=== PATIENT | male | born 1980 | race Caucasian/White ===

== ENCOUNTER 2025-02-15 16:15 | Inpatient (IN) | payer MEDICAID, SELFPAY ==
[2025-02-15] VITALS (7 sets, daily range): BP systolic 153–206; BP diastolic 71–93; PULSE 74–95; RESP 15–26; TEMP 37.1–37.6; O2SAT 93–100; BMI 25.6; BMI 24.0
[2025-02-15 16:49] LABS: Hematocrit 48.0 % (40-54); Hemoglobin 16.7 g/dL (13.0-16.5); Immature Granulocytes Count 0.140 X10^3/uL (0.0-0.0); Mean Corp Hgb Conc 34.8 g/dL (32-36); Mean Corpuscular Volume 92.5 fL (80-94); Mean Platelet Vol. 11.1 fl (6.2-12.0); NRBC Flagged by Analyzer 0 % (0-5); Platelet Count 348 K/mm3 (150-450); RBC Distribution Width CV 13.1 % (11.6-14.6); RBC Distribution Width SD 44.0 fl (35.1-43.9); Red Blood Count 5.19 M/mm3 (4.6-6.2); White Blood Count 18.9 K/mm3 (4.4-11.0)
[2025-02-15 17:10] LABS: Alcohol, Blood (Medical)-Serum < 10.1 mg/dL (<=10.0)
[2025-02-15 17:13] LABS: AST(SGOT) 21 U/L (<=37); Alanine Aminotransfer ALT/SGPT 20 U/L (<=46); Albumin, Serum 4.6 g/dL (3.5-5.0); Alkaline Phosphatase 78 U/L (40-129); Anion Gap 17 (5-15); BUN 18 mg/dL (4-19); BUN/Creat Ratio 18.7 RATIO (10-20); Calcium,Total 9.8 mg/dL (7.6-11.0); Carbon Dioxide 29.6 mmol/L (21.0-32.0); Chloride 97 mmol/L (98-108); Estimated Creatinine Clearance 101.39 ml/min (50-250); Globulin 3.2 g/dL (2.2-4.2); Glucose 188 mg/dL (70-99); Potassium 3.2 mmol/L (3.3-5.1)
--- NOTE | 2025-02-15 17:28 | EX.ED.SAOD ---
HPI History of Present Illness Chief Complaint: Substance Abuse Detail of Chief Complaint: Patient presents from [facility] because of withdrawal from fentanyl. Informant: patient Onset/Context/Timing Onset: Today Context: Sudden Onset Timing: Continuous Quality: Withdrawal Location: Not applicable Current Severity: Moderate Maximum Severity: Moderate Worsened by: Has not used fentanyl since yesterday since he was incarcerated for OV I Relieved by: Not applicable Associated Symptoms Associated Symptoms: Positive for tremor and palpatations; Negative for vomiting*, diarrhea*, fever*, rash*, seizure, change in mental status, trauma, sex for drugs*, no, suicidal ideation, homicidal ideation or *HIV Risk Factors:Consider testing if last test > 6 months Narrative Narrative: Patient is a 44-year-old male. He was incarcerated yesterday for O . He needs to spend 6 days in [facility]. He started using 1.5 months ago. He states he got nervous because he had to go to [facility]. He had been free of drugs for 1 year. He has never gone through a detox program per patient. He denies fever, chills night sweats. Eyes headache, visual, ocular auditory symptoms. No trouble speech or swallowing. He does complain of palpitation otherwise cardiac negative. He denies respiratory symptoms. He does endorse nausea otherwise no GI symptoms. He states he did use IV drugs. Prior similar symptoms: Yes Recent Illness/Hospitalization: No PFSH PFSH Medical History Drug use Allergy/AdvReac Type Severity Reaction Status Date / Time No Known Allergies Allergy Verified 02/15/25 16:17 Social History current occupational status: unemployed Smoking Status: Current every day smoker tobacco type: cigarettes ROS ROS ED Constitutional Constitutional ED: Reports sweats; Denies chills, fever(s), subjective or weight loss Eyes Eyes: Denies blurry vision or change in vision ENT ENT ED: Denies ear pain or rhinorrhea Cardiovascular Cardiovascular: Denies chest pain, orthopnea, palpitations or racing heartbeat Respiratory/Chest Respiratory/Chest: Denies cough, dyspnea, dyspnea on exertion or orthopnea Gastrointestinal Gastrointestinal: Reports abdominal pain and nausea Genitourinary Genitourinary ED: Denies dysuria or urinary frequency Musculoskeletal Musculoskeletal: Denies arthralgias or myalgias Integumentary Denies rash Neurologic Neurologic: Denies headache(s) or paresthesias Psychiatric Psychiatric: Denies anxiety or depression Endocrine Endocrinology: Denies cold intolerance or heat intolerance Hematologic/Lymphatic Hematologic/Lymphatic: Denies easy bleeding or easy bruising EXAM Physical Exam Const Vital Signs: 02/15/25 16:17 Temperature 99.6 F H Temperature Source Oral Pulse Rate 74 Respiratory Rate 26 H Blood Pressure 153/93 H Blood Pressure Mean 113 Pulse Ox 100 Oxygen Delivery Method Room Air Positive well nourished and well developed General Appearance ED: well developed; Negative for NAD or pallor HEENT Reports moist mucous membranes atraumatic Eyes PERRL and EOMs intact bilaterally Neck no lymphadenopathy, supple and no JVD Lymph Lymphatic: no lymphadenopathy noted Resp normal respiratory effort and clear to auscultation bilaterally Cardio regular rate, regular rhythm, S1 normal heart sound, S2 normal heart sound and no murmurs GI soft to palpation Auscultation: hyperactive bowel sounds Palpation: Negative for tender or guarding Back/Spine no CVA tenderness Extremity Extremity Narrative: Prior well-healed track johnson. Neuro oriented x3 and CN's II-XII intact bilaterally Neuro Narrative: Patient is hyperreflexic bicep, tricep, patella and ankle. He has 3 beats of nonsustained clonus at the ankles. Sensorium / Orientation: alert Speech: speech normal Motor Exam: strength 5/5 throughout Psych Psych Narrative: Patient's groggy. He states he did not sleep well last night. Skin General Skin Exam: Negative for jaundice or pallor Lesions: no lesions Rashes: no rashes MDM MDM MDM Narrative Medical decision making narrative: Addiction medicine order set was initiated. He was treated with clonidine Bentyl and Zofran for his withdrawal symptoms. His score was 12. Lab Data Attestation: I reviewed the patient's lab results. Lab results narrative: Leukocytosis with slight shift. This may be stress-induced. Hemoglobin is elevated. Electrolyte panel is remarkable glucose of 188 with normal CO2 however he has an elevated anion gap. Alcohol was not detected. Talk screen is pending. Labs: Laboratory Results - last 24 hr 02/15/25 16:22 WBC 18.9 H RBC 5.19 Hgb 16.7 H Hct 48.0 MCV 92.5 MCH 32.2 H MCHC 34.8 RDW Std Deviation 44.0 H RDW Coeff of Anna 13.1 Plt Count 348 MPV 11.1 Immature Gran % (Auto) 0.700 Neut % (Auto) 91.2 H Lymph % (Auto) 3.9 L Clark % (Auto) 4.0 Eos % (Auto) 0.0 Baso % (Auto) 0.2 Absolute Neuts (auto) 17.2 H Absolute Lymphs (auto) 0.74 L Nucleated RBC % 0 Sodium 143 Potassium 3.2 L Chloride 97 L Carbon Dioxide 29.6 Anion Gap 17 H BUN 18 Creatinine 0.94 Estim Creat Clear Calc 101.39 Est GFR (MDRD) Non-Af 102 BUN/Creatinine Ratio 18.7 Glucose 188 H Calcium 9.8 Total Bilirubin 0.62 AST 21 ALT 20 Alkaline Phosphatase 78 Total Protein 7.8 Albumin 4.6 Globulin 3.2 Albumin/Globulin Ratio 1.4 Ethyl Alcohol < 10.1 Management Discussion w/another healthcare provider: Hospitalist (Case discussed with the hospitalist. Full admit MedSurg opiate withdrawal and dependency) Discharge Plan Dx/Rx/DC Orders Clinical Impression: Opiate withdrawal, Fentanyl use disorder, moderate, dependence, Leukocytosis, Nondiabetic hyperglycemia, Acute hypokalemia, High anion gap Disposition Disposition: [facility]
--- OUTSIDE RECORDS SUMMARY | 2025-02-15 17:48 | XMS RPT_ITS | CCD ---
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 Name Role Phone [employer] Unavailable Unavailable NO REFERRING DR Unavailable BARI Zhu Unavailable Unavailable Flora ARGUELLO, Devin Mauricio Primary Care Provider MELODY LOPEZ Attending Unavailable Devin Laboy MD Primary Care Provider Devin Laboy MD Primary Care Provider JUAN J, ALI Attending Unavailable FLORA, CHRISTOPHER Primary Care Unavailable JUAN J, ALI Attending Unavailable FLORA, CHRISTOPHER Primary Care Unavailable JUAN J, ALI Attending Unavailable FLORA, CHRISTOPHER Primary Care Unavailable JUAN J, ALI Attending Unavailable FLORA, CHRISTOPHER Primary Care Unavailable JUAN J, ALI Attending Unavailable FLORA, CHRISTOPHER Primary Care Unavailable JUAN J, ALI Attending Unavailable FLORA, CHRISTOPHER Primary Care Unavailable JUAN J, ALI Attending Unavailable FLORA, CHRISTOPHER Primary Care Unavailable JUAN J, ALI Attending Unavailable FLORA, CHRISTOPHER Primary Care Unavailable JUAN J, ALI Attending Unavailable FLORA, CHRISTOPHER Primary Care Unavailable JUAN J, ALI Attending Unavailable FLORA, CHRISTOPHER Primary Care Unavailable JUAN J, ALI Attending Unavailable FLORA, CHRISTOPHER Primary Care Unavailable JUAN J, ALI Attending Unavailable FLORA, CHRISTOPHER Primary Care Unavailable JUAN J, ALI Attending Unavailable FLORA, CHRISTOPHER Primary Care Unavailable FLORA, CHRISTOPHER Primary Care Unavailable JUAN J, ALI Attending Unavailable FLORA, CHRISTOPHER Primary Care Unavailable JUAN J, ALI Attending Unavailable FLORA, CHRISTOPHER Primary Care Unavailable JUAN J, ALI Attending Unavailable FLORA, CHRISTOPHER Primary Care Unavailable JUAN J, ALI Attending Unavailable FLORA, CHRISTOPHER Primary Care Unavailable Allergies Allergy Classification Reported Allergen(s) Allergy Type Date of Onset Reaction(s) Facility (3 sources) Penicillins; Translations: [PENICILLINS] Propensity to adverse reactions (disorder) 8 [facility] Repository Medications Current Medications Medication Drug Class(es) Dates Sig (Normalized) Sig (Original) naproxen 500 mg oral tablet (1 source) Nonsteroidal Anti-inflammatory Drug Start: 08-09-2017 take 1 tablet by mouth twice daily at mealtime naproxen (NAPROSYN) 500 MG tablet Take 1 tablet by mouth 2 times daily (with meals) 30 tablet 0 08/09/2017 Active Completed/Discontinued Medications Medication Drug Class(es) Dates Sig (Normalized) Sig (Original) EPINEPHrine 0.01 mg/ml / lidocaine hydrochloride 10 mg/ml injectable solution (1 source) Antiarrhythmic, alpha-Adrenergic Agonist, beta-Adrenergic Agonist, Catecholamine, Amide Local Anesthetic Start: 10-31-2021 End: 10-31-2021 lidocaine-EPINEPH rine 1 %-[id number] injection 20 mL Problems Active Problems Problem Classification Problem Date Documented Date Episodic/Chronic Alcohol-related disorders (2 sources) Alcohol dependence, uncomplicated; Translations: [Alcohol dependence, uncomplicated (HCC)] Onset: 09-05-2024 Chronic Open wounds of extremities (1 source) Laceration of right knee; Translations: [Laceration without foreign body, right knee, initial encounter] Episodic Other injuries and conditions due to external causes (1 source) Unspecified injury of thorax, initial encounter; Translations: [Rib injury] Onset: 02-07-2022 Episodic Substance-related disorders (20 sources) Nicotine dependence, cigarettes, uncomplicated; Translations: [Opioid abuse] Onset: 10-10-2016 12-05-2022 Chronic Substance-related disorders (10 sources) Opioid abuse; Translations: [Opioid use, unspecified, uncomplicated] Onset: 11-07-2024 06-11-2024 Episodic Unclassified (1 source) Encounter for screening laboratory testing for COVID-19 virus; Translations: [Encounter for screening laboratory testing for COVID-19 virus] Onset: 05-20-2021 Past or Other Problems Problem Classification Problem Date Documented Da te Episodic/Chronic Mood disorders (20 sources) Mood disorders Onset: 06-11-2024 06-11-2024 Other connective tissue disease (4 sources) Other specified soft tissue disorders; Translations: [Pain in right leg] Onset: 10-10-2016 Episodic Results Test Name Value Interpretation Reference Range [facility] 94on 12-11-2024 94 [facility] Group Therapy Documentation Program: Addiction Medicine Intensive Outpatient ProgramGroup Type: Relapse Prevention Group Group Date: 12/11/2024 Facilitators: NICOLE Trent Department: [facility] Addiction IOP Group No: 1 Start Time: 5:30 PM No. of Participants: 9 End Time: 6:30 PM Group Topic: check-in Summary of Group Activity: Pt complete check-in sheets and shared with other group members Patient's level of participation in group process: Engaged in group process, Interactive with other group members, Appeared eager to learn/discuss group topic, and Provided support and/or feedback to others Therapeutic Intervention utilized with Patient: Building rapport and engagement and Empathic listening Patient's Response to Intervention: Pt was able to complete the check-in worksheet and share with other group members. Pt was receptive to feedback offered by other group members. Pt reported their progress in [place] on 1-10 scale is a, 10, got my job back Pt reported they are utilizing the coping skill of, remembering how far I've come to help with mood regulation. Mental Status Exam: Affect and Mood: appropriate Behavior: Pleasant, Cooperative, Engaging, and Interactive Cognition: Intact and Oriented X4 Additional comments: na Progress Towards Goals: Minimal Next Step(s): Continue with current services Additional Comments (optional): [facility] Progress Noteon 12-04-2024 Progress Note Missed Session Unexcused Pt did not call or show for Relapse Prevention on this date. [facility] 94on 11-27-2024 94 [facility] Group Therapy Documentation Program: Addiction Medicine Intensive Outpatient ProgramGroup Type: Relapse Prevention Group Group Date: 11/27/2024 Facilitators: NICOLE Hood Department: [facility] Addiction IOP Group No: 1 Start Time: 5:30 PM No. of Participants: 8 End Time: 6:30 PM Group Topic: check in Summary of Group Activity: Pt report on events occurring since the last session. Patient's level of participation in group process: Engaged in group process and Interactive with other group members Therapeutic Intervention utilized with Patient: Building rapport and engagement and Modeling/skills training Patient's Response to Intervention: Pt report no thoughts or cravings to use. Pt reports that work in going great and that he is doing well overall. Mental Status Exam: Affect and Mood: appropriate Behavior: Cooperative and Engaging Cognition: Intact Additional comments: n/a Progress Towards Goals: Minimal Next Step(s): Continue with current services Additional Comments (optional): [facility] Progress Noteon 11-20-2024 Progress Note Pt called off from Relapse Prevention group due to work. [facility] Progress Noteon 11-13-2024 Progress Note Pt called off from Relapse Prevention group due to unknown reason. [facility] 11-06-2024 94 [facility] Group Therapy Documentation Program: Addiction Medicine Intensive Outpatient ProgramGroup Type: Relapse Prevention Group Group Date: 11/06/2024 Facilitators: NICOLE Hood Department: [facility] Addiction IOP Group No: 1 Start Time: 5:30 PM No. of Participants: 7 End Time: 6:30 PM Group Topic: check in Summary of Group Activity: Pt report on events occurring since the last session. Patient's level of participation in group process: Engaged in group process and Interactive with other group members Therapeutic Intervention utilized with Patient: Building rapport and engagement, Psychoeducation, and Modeling/skills training Patient's Response to Intervention: Pt reports that he is back at his old job and is liking it a lot. Pt reports no thoughts or craving to use drugs Mental Status Exam: Affect and Mood: appropriate Behavior: Cooperative and Engaging Cognition: Intact Additional comments: n/a Progress Towards Goals: Minimal Next Step(s): Continue with current services Additional Comments (optional): [facility] 10-30-2024 30 [place] update no changes [facility] 9410-30-2024 94 [facility] Group Therapy Documentation Program: Addiction Medicine Intensive Outpatient ProgramGroup Type: Relapse Prevention Group Group Date: 10/30/2024 Facilitators: NICOLE Hood Department: [facility] Addiction IOP Group No: 1 Start Time: 5:30 PM No. of Participants: 8 End Time: 6:30 PM Group Topic: check in Summary of Group Activity: pt report on events occurring since the last session. Patient's level of participation in group process: Engaged in group process and Interactive with other group members Therapeutic Intervention utilized with Patient: Psychoeducation and Modeling/skills training Patient's Response to Intervention: Pt reports that he is getting his old job back and that this is his last week of third shift. He also denies any thoughts or cravings to use. Mental Status Exam: Affect and Mood: appropriate Behavior: Cooperative and Engaging Cognition: Intact Additional comments: n/a Progress Towards Goals: Minimal Next Step(s): Continue with current services Additional Comments (optional): Normal [facility] MEDICATION ASSISTED TREATMEN T KENJIon 10-30-2024 Amphetamines Ql (U) Negative Normal Negative [facility] Comment on above: Performed By: #### L [id number] ####Brush Operator: ALCIDES MALHOTRA ([id number])[facility])[address] [place] [address] BARBITURATES Negative Normal Negative [facility] Comment on above: Performed By: #### L [id number] ####Brush Operator: ALCIDES MALHOTRA ([id number])[facility])[address] [place] [address] Benzodiazepines Ql (U) Negative Normal Negative [facility] Comment on above: Performed By: #### L [id number] ####Brush Operator: ALCIDES MALHOTRA ([id number])[facility])[address] [place] [address] BUPRENORPHINE SCREEN Negative Normal Negative [facility] Comment on above: Performed By: #### L [id number] ####Brush Operator: ALCIDES MALHOTRA ([id number])[facility])[address] [place] [address] Cocaine Ql (U) Negative Normal Negative [facility] Comment on above: Performed By: #### L [id number] ####Brush Operator: ALCIDES [id number])[facility] [place] [address] ETHANOL-ETOHO Negative Normal Negative [facility] Comment on above: Result Comment: CHAUNCEY Jenny COMMENTS: The expected value for the drugs listed above is Negative. The following drugs or drug groups have been screened for by Immunoassay at the following thresholds: Amphetamine class(1000ng/mL) Barbituates(200ng/mL) Benzodiazepines(200ng/mL) Cocaine(300ng/mL) Ethanol (50 ng/mL) Methadone(300ng/mL) Opiates(300ng/mL) Oxycodone(100ng/mL) PCP(25ng/mL) Buprenorphine(5ng/mL) THC(50ng/mL) Fentanyl(1ng/mL) Positive results are NOT confirmed by a more specific alternative method unless requested. If confirmation is needed, request confirmation under separate order. NOTE: These results are for medical treatment only. Analysis performed using non-forensic procedures. Performed By: #### L [id number] ####Brush Operator: ALCIDES MALHOTRA ([id number])[facility] ([facility])[address] [place] [address] FENTANYL Negative Normal Negative [facility] Comment on above: Performed By: #### L [id number] ####Brush Operator: ALCIDES MALHOTRA ([id number])[facility] ([facility])[address] [place] [address] Methadone Ql (U) Negative Normal Negative [facility] Comment on above: Performed By: #### L [id number] ####Brush Operator: ALCIDES MALHOTRA ([id number])[facility] ([facility])[address] [place] [address] Opiates Ql (U) Negative Normal Negative [facility] Comment on above: Performed By: #### L [id number] ####Brush Operator: ALCIDES MALHOTRA ([id number])[facility] ([facility])[address] [place] [address] OXYCODONE/OXYMORPHONE Negative Normal Negative [facility] Comment on above: Performed By: #### L [id number] ####Brush Operator: ALCIDES MALHOTRA ([id number])[facility] ([facility])[address] [place] [address] PCP Negative Normal Negative [facility] Comment on above: Performed By: #### L [id number] ####Brush Operator: ALCIDES MALHOTRA ([id number])[facility] ([facility])[address] [place] [address] THC-MTTHC Negative Normal Negative [facility] Comment on above: Performed By: #### L [id number] ####Brush Operator: ALCIDES MALHOTRA ([id number])[facility] ([facility])[address] [place] [address] 9410-23-2024 94 [facility] Group Therapy Documentation Program: Addiction Medicine Intensive Outpatient ProgramGroup Type: Relapse Prevention Group Group Date: 10/23/2024 Facilitators: NICOLE Hood Department: [facility] Addiction IOP Group No: 1 Start Time: 5:30 PM No. of Participants: 6 End Time: 6:30 PM Group Topic: check in Summary of Group Activity: pt report on events occurring since the last session. Patient's level of participation in group process: Engaged in group process and Interactive with other group members Therapeutic Intervention utilized with Patient: Modeling/skills training Patient's Response to Intervention: Pt reports that he is still struggling with getting sleep while on third shift. Pt also reports that he has been in contact with his old job and they are interested in him coming back to work which would put him on days shift. Pt is still struggling to make changes to his thoughts and behaviors in sobriety. Mental Status Exam: Affect and Mood: appropriate Behavior: Cooperative and Engaging Cognition: Intact Additional comments: n/a Progress Towards Goals: Minimal Next Step(s): Continue with current services Additional Comments (optional): [facility] Progress Noteon 10-16-2024 Progress Note Pt called off from Relapse Prevention group due to overslept. [facility] 94on 10-09-2024 94 [facility] Group Therapy Documentation Program: Addiction Medicine Intensive Outpatient ProgramGroup Type: Relapse Prevention Group Group Date: 10/09/2024 Facilitators: NICOLE Hood Department: [facility] Addiction IOP Group No: 1 Start Time: 5:30 PM No. of Participants: 6 End Time: 6:30 PM Group Topic: Check in Summary of Group Activity: pt report on events occurring since the last session. Patient's level of participation in group process: Engaged in group process and Interactive with other group members Therapeutic Intervention utilized with Patient: Building rapport and engagement and Modeling/skills training Patient's Response to Intervention: Pt reports no thoughts or cravings to use drugs. 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 Pt cautioned about increased potential to relapse due to lack of sleep. Mental Status Exam: Affect and Mood: appropriate Behavior: Cooperative and Engaging Cognition: Intact Additional comments: n/a Progress Towards Goals: Minimal Next Step(s): Continue with current services Additional Comments (optional): [facility] 3010-02-2024 30 Pt progressing [place] review [facility] 10-02-2024 94 [facility] Group Therapy Documentation Program: Addiction Medicine Intensive Outpatient ProgramGroup Type: Relapse Prevention Group Group Date: 10/02/2024 Facilitators: NICOLE Rowland Department: [facility] Addiction IOP Group No: 1 Start Time: 5:30 PM No. of Participants: 8 End Time: 6:30 PM Group Topic: Check-in Summary of Group Activity: Group members checked-in discussed triggers, stressors and activities they engage in for their recovery Patient's level of participation in group process: Interactive with other group members Therapeutic Intervention utilized with Patient: Building rapport and engagement, Empathic listening, and Motivational interviewing techniques Patient's Response to Intervention: Pt reported things are going well. He reported continuing to [employer]. He stated things at work are going great and he expects to get hired on and then a promotion. 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 [facility] 94on 09-18-2024 94 [facility] Group Therapy Documentation Program: Addiction Medicine Intensive Outpatient Program Group Type: Relapse Prevention Group Group Date: 09/18/2024 Facilitators: NICOLE Hood Department: [facility] Addiction IOP Group No: 1 Start Time: 5:30 PM No. of Participants: 6 End Time: 6:30 PM Group Topic: check in Summary of Group Activity: Pt report on events occurring since the last session Patient's level of participation in group process: Engaged in group process Therapeutic Intervention utilized with Patient: Psychoeducation and Modeling/skills training Patient's Response to Intervention: Pt reports that he is not having any cravings to use drugs. 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 Mental Status Exam: Affect and Mood: appropriate Behavior: Cooperative and Engaging Cognition: Intact Additional comments: n/a Progress Towards Goals: Minimal Next Step(s): Continue with current services Additional Comments (optional): [facility] Progress Noteon 09-11-2024 Progress Note Pt called off from Relapse Prevention group due to transportation issues. [facility] 94on 09-04-2024 94 [facility] Group Therapy Documentation Program: Addiction Medicine Intensive Outpatient Program Group Type: Relapse Prevention Group Group Date: 09/04/2024 Facilitators: NICOLE Hood Department: [facility] Addiction IOP Group No: 1 Start Time: 5:30 PM No. of Participants: 6 End Time: 6:30 PM Group Topic: check in Summary of Group Activity: Pt report on events occurring since the last session. Patient's level of participation in group process: Engaged in group process and Interactive with other group members Therapeutic Intervention utilized with Patient: Building rapport and engagement, Empathic listening, Psychoeducation, and Modeling/skills training Patient's Response to Intervention: Pt reports no thoughts or cravings to use. No sober support meeting attendance. Pt does report going to the bar he used to drink at and ordering a soda. Pt resistant to developing insight into his triggers and rationalizes and justifies his behaviors. Mental Status Exam: Affect and Mood: appropriate Behavior: Pleasant, Cooperative, and Engaging Cognition: Intact Additional comments: n/a Progress Towards Goals: Minimal Next Step(s): Continue with current services Additional Comments (optional): [facility] 94on 08-29-2024 94 [facility] Group Therapy Documentation Program: Addiction Medicine Intensive Outpatient Program Group Type: Addiction IOP Group Date: 08/29/2024 Facilitators: Catherine Perez Department: [facility] Addiction IOP Group No: 1 Start Time: 5:30 PM No. of Participants: 6 End Time: 6:20 PM Group Topic: Check Ins Summary of Group Activity: Group members were given an opportunity to share about their time since last being in group. Patient's level of participation in group process: Engaged in group process Therapeutic Intervention utilized with Patient: Building rapport and engagement and Empathic listening Patient's Response to Intervention: Patient reported that things continue to go well. Patient shared that he is hopeful he will be able to find an apartment for himself. Mental Status Exam: Affect and Mood: appropriate Behavior: Pleasant Cognition: Oriented X4 Additional comments: NA Progress Towards Goals: Moderate Next Step(s): Continue with current services Additional Comments (optional): Group No: 2 Start Time: 6:30 PM No. of Participants: 6 End Time: 7:20 PM Group Topic: Check Ins Continued Summary of Group Activity: Group members were given an opportunity to share about their time since last being in group. Patient's level of participation in group process: Engaged in group process and Interactive with other group members Therapeutic Intervention utilized with Patient: Building rapport and engagement, Empathic listening, and Modeling/skills training Patient's Response to Intervention: Patient attentive as other group members checked in. Mental Status Exam: Affect and Mood: appropriate Behavior: Pleasant Cognition: Oriented X4 Additional comments: NA Progress Towards Goals: Moderate Next Step(s): Continue with current services Additional Comments (optional): Group No: 3 Start Time: 7:30 PM No. of Participants: 6 End Time: 8:20 PM Group Topic: Humor Summary of Group Activity: Group members watched Marlon Hung do his comedy regarding addiction and recovery. Patient's level of participation in group process: Engaged in group process Therapeutic Intervention utilized with Patient: Building rapport and engagement, Empathic listening, and Psychoeducation Patient's Response to Intervention: Patient appeared engaged and attentive. Mental Status Exam: Affect and Mood: appropriate Behavior: Cooperative Cognition: Oriented X4 Additional comments: NA Progress Towards Goals: Moderate Next Step(s): Continue with current services Additional Comments (optional): NA [facility] Nursing Noteon 08-29-2024 Nursing Note Ashutosh Villa met requirements to safely discharge from [facility] ADDICTION IOP. Ashutosh medication list reviewed. Ashutosh has a fair understanding of medications. Follow-up appointments scheduled with Jt Ramirez. Ashutosh expresses plans to attend follow-up care. Ashutosh denies SI/HI and states feeling ready to discharge from this level of care. [facility] 94on 08-27-2024 94 [facility] Group Therapy Documentation Program: Addiction Medicine Intensive Outpatient Program Group Type: Addiction IOP Group Date: 08/27/2024 Facilitators: Catherine Perez Department: [facility] Addiction IOP Group No: 1 Start Time: 5:30 PM No. of Participants: 7 End Time: 6:20 PM Group Topic: Check Ins Summary of Group Activity: Group members were given an opportunity to share about their time since last being in group. Patient's level of participation in group process: Engaged in group process Therapeutic Intervention utilized with Patient: Building rapport and engagement and Empathic listening Patient's Response to Intervention: Patient reported that things are going well. Patient shared that he is enjoying work more than he thought he would and hopes to advance at the company. Mental Status Exam: Affect and Mood: appropriate Behavior: Pleasant Cognition: Oriented X4 Additional comments: NA Progress Towards Goals: Moderate Next Step(s): Continue with current services Additional Comments (optional): Group No: 2 Start Time: 6:30 PM No. of Participants: 7 End Time: 7:20 PM Group Topic: Check Ins Continued Summary of Group Activity: Group members were given an opportunity to share about their time since last being in group. Patient's level of participation in group process: Engaged in group process and Interactive with other group members Therapeutic Intervention utilized with Patient: Building rapport and engagement, Empathic listening, and Modeling/skills training Patient's Response to Intervention: Mental Status Exam: Affect and Mood: appropriate Behavior: Pleasant Cognition: Oriented X4 Additional comments: NA Progress Towards Goals: Moderate Next Step(s): Continue with current services Additional Comments (optional): Group No: 3 Start Time: 7:30 PM No. of Participants: 7 End Time: 8:20 PM Group Topic: Mindfulness Summary of Group Activity: Group members learned what mindfulness is. Patient learned the benefits of practicing mindfulness and participated in a practice on mindful eating. Patient's level of participation in group process: Engaged in group process Therapeutic Intervention utilized with Patient: Building rapport and engagement, Empathic listening, and Psychoeducation Patient's Response to Intervention: Patient engaged with discussion of mindfulness. Patient visualized actively participating in the mindful eating practice. Mental Status Exam: Affect and Mood: appropriate Behavior: Cooperative Cognition: Oriented X4 Additional comments: NA Progress Towards Goals: Moderate Next Step(s): Continue with current services Additional Comments (optional): NA [facility] 94on 08-26-2024 94 Outpatient Behavioral Health Services Group Therapy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 etc.)? Emergency Room Patient: Screened in ED PATIENT GENDER DATA: Male PATIENT RELEVANT IMPLANT DATA REVIEWED: Not Applicable ALLERGIES: Reviewed and unchanged CONTRAST ALLERGY: NO. EXAM: CT -CONTRAST INDUCED NEPHROPATHY RISK FACTORS: Not applicable CREATININE: Creatinine Date Value Ref Range Status 02/07/2022 0.74 0.67 - 1.17 mg/dL Final 10/23/2013 0.78 0.67 - 1.17 mg/dL Final 10/22/2013 0.77 0.67 - 1.17 mg/dL Final Estimated Glomerular Filtration Rate Date Value Ref Range Status 02/07/2022 115 >=60 mL/min/1.73m? Final Comment: Estimated Glomerular Filtration Rate (eGFR) is calculated using the 2020 CKD-EPI creatinine equation. This equation utilizes serum creatinine, sex, and age as parameters. The creatinine assay has traceable calibration to isotope dilution-mass spectrometry. Refer to KDIGO guidelines for clinical interpretation. In patients with unstable renal function, e.g. those with acute kidney injury, the eGFR may not accurately reflect actual GFR. P.O.C.T. RESULTS: POC done: Yes, See Lab Tab February 07, 2022 TREATMENT: N/A PERIPHERAL IV DATA: Inpatient - refer to LDA documentation RADIOLOGY DEPARTMENT: CT; Exam(s) Completed: Abdomen/Pelvis SIGNATURE: RT Kane(Jenny) PATIENT NAME: Eric Villa DATE: February 07, 2022 TIME: 9:47 PM Normal [facility] ALLIED HEALTH HNO ID: [id number] Author: JIMENEZ Middleton) Service: Radiology Author Type: Technologist Type: Allied Health Filed: 02/07/2022 7:27 PM Note Text: Radiology Service Progress Note PATIENT NAME: Eric Villa DATE OF SERVICE: February 07, 2022 TIME: 7:26 PM PATIENT IDENTITY VERIFICATION COMPLETED USING TWO (2) IDENTIFIERS: Name and Date of confirmed by patient verbally and Name and Date of confirmed by identification band. FALL SCREENING: Has the patient had 2 falls in the last year or 1 fall with injury or currently using an Ambulatory Assistive Device (Walker, Cane, Wheelchair, Crutches, etc.)? Emergency Room Patient: Screened in ED PATIENT GENDER DATA: Male PATIENT RELEVANT IMPLANT DATA REVIEWED: Not Applicable RADIOLOGY DEPARTMENT: General X-ray: Exam(s) Completed: Rib X-Ray: Left PERIPHERAL IV DATA: Not applicable SIGNED BY: Hilda Arnold RT(R) February 07, 2022 7:26 PM Normal [facility] Basic metabolic 2000 panelon 02-07-2022 Anion gap [Moles/Vol] 6 mmol/L Low 8-16 [facility] Comment on above: Order Comment: Speci men Type: BLOOD SPECIMEN Ordering Facility: [facility] Address: [address] [place] [address] Performed By: #### 2 4321-2 #### [facility] CLIA [id number] [address] [place] [address] [place] Calcium [Mass/Vol] 9.3 mg/dL Normal 8.5-10.1 [facility] Comment on above: Order Comment: Speci men Type: BLOOD SPECIMEN Ordering Facility: [facility] Address: [address] [place] [address] Performed By: #### 2 4321-2 #### [facility] CLIA [id number] [address] [place] [address] [place] Chloride [Moles/Vol] 102 mmol/L Normal 98-107 [facility] Comment on above: Order Comment: Speci men Type: BLOOD SPECIMEN Ordering Facility: [facility] Address: [address] [place] [address] Performed By: #### 2 4321-2 #### [facility] CLIA [id number] [address] [place] [address] [place] CO2 [Moles/Vol] 30 mmol/L Normal 21-32 [facility] Comment on above: Order Comment: Speci men Type: BLOOD SPECIMEN Ordering Facility: [facility] Address: [address] [place] [address] Performed By: #### 2 4321-2 #### [facility] CLIA [id number] [address] [place] [address] [place] Creatinine [Mass/Vol] 0.74 mg/dL Normal 0.67-1.17 [facility] Comment on above: Order Comment: Holli walden Type: BLOOD SPECIMEN Ordering Facility: [facility] Address: [address] [place], [place] [address] Performed By: #### 2 4321-2 #### [facility] CLIA [id number] [address] [place], [place] [address] [place] ESTIMATED GLOMERULAR FILTRATION RATE 115 mL/min/1.73m??? Normal >=60 [facility] Comment on above: Order Comment: Holli win Type: BLOOD SPECIMEN Ordering Facility: [facility] Address: [address] [place], [place] [address] Result Comment: Itzel mated Glomerular Filtration Rate (eGFR) is calculated using the 2020 CKD-EPI creatinine equation. This equation utilizes serum creatinine, sex, and age as parameters. The creatinine assay has traceable calibration to isotope dilution-mass spectrometry. Refer to KDIGO guidelines for clinical interpretation. In patients with unstable renal function, e.g. those with acute kidney injury, the eGFR may not accurately reflect actual GFR. Performed By: #### 2 4321-2 #### [facility] CLIA [id number] [address] [place], [place] [address] [place] Glucose [Mass/Vol] 95 mg/dL Normal 70-99 [facility] Comment on above: Order Comment: Holli walden Type: BLOOD SPECIMEN Ordering Facility: [facility] Address: [address] [place] [address] Result Comment: The [place] Diabetes Association (ADA) provides guidance for cutoff values for fasting glucose and random glucose. The ADA defines fasting as no caloric intake for at least 8 hours. Fasting plasma glucose results between 100 to 125 mg/dL indicate increased risk for diabetes (prediabetes). Fasting plasma glucose results greater than or equal to 126 mg/dL meet the criteria for diagnosis of diabetes. In the absence of unequivocal hyperglycemia, results should be confirmed by repeat testing. In a patient with classic symptoms of hyperglycemia or hyperglycemic crisis, random plasma glucose results greater than or equal to 200 mg/dL meet the criteria for diagnosis of diabetes. Reference: Standards of Medical Care in Diabetes 2016, English Diabetes Association. Diabetes Care. 2016.39(Suppl 1). Performed By: #### 2 4321-2 #### [facility] CLIA [id number] [address] [place] [address] [place] Potassium [Moles/Vol] 3.9 mmol/L Normal 3.5-5.1 [facility] Comment on above: Order Comment: Speci men Type: BLOOD SPECIMEN Ordering Facility: [facility] Address: [address] [place] [address] Performed By: #### 2 4321-2 #### [facility] CLIA [id number] [address] [place] [address] [place] Sodium [Moles/Vol] 138 mmol/L Normal 136-145 [facility] Comment on above: Order Comment: Speci men Type: BLOOD SPECIMEN Ordering Facility: [facility] Address: [address] [place] [address] Performed By: #### 2 4321-2 #### [facility] CLIA [id number] [address] [place] [address] [place] Urea nitrogen [Mass/Vol] 9 mg/dL Normal 7-18 [facility] Comment on above: Order Comment: Speci men Type: BLOOD SPECIMEN Ordering Facility: [facility] Address: [address] [place] [address] Performed By: #### 2 4321-2 #### [facility] CLIA [id number] [address] [place] [address] [place] CBC W Auto Differential pane l (Bld)on 02-07-2022 Basophils (Bld) [#/Vol] 0.03 10*3/uL Normal <0.11 [facility] Comment on above: Order Comment: Speci men Type: BLOOD SPECIMEN Ordering Facility: [facility] Address: [address] [place] [address] Performed By: #### 5 7021-8 #### [facility] CLIA [id number] [address] [place] [address] [place] Basophils/100 WBC (Bld) 0.3 % Normal [facility] Comment on above: Order Comment: Speci men Type: BLOOD SPECIMEN Ordering Facility: [facility] Address: [facility] [place] [address] Performed By: #### 5 7021-8 #### [facility] CLIA [id number] [address] [place] [address] [place] Differential cell count method Nom (Bld) Auto Normal [facility] Comment on above: Order Comment: Speci men Type: BLOOD SPECIMEN Ordering Facility: [facility] Address: [address] [place] [address] Performed By: #### 5 7021-8 #### [facility] CLIA [id number] [address] [place] [address] [place] Eosinophils (Bld) [#/Vol] 0.09 10*3/uL Normal <0.46 [facility] Comment on above: Order Comment: Speci men Type: BLOOD SPECIMEN Ordering Facility: [facility] Address: [address] [place] [address] Performed By: #### 5 7021-8 #### [facility] CLIA [id number] [address] [place] [address] [place] Eosinophils/100 WBC (Bld) 1.0 % Normal [facility] Comment on above: Order Comment: Speci men Type: BLOOD SPECIMEN Ordering Facility: [facility] Address: [address] [place] [address] Performed By: #### 5 7021-8 #### [facility] CLIA [id number] [address] [place], [place] [address] [place] Erythrocyte distribution width (RBC) [Ratio] 12.0 % Normal 11.5-15.0 [facility] Comment on above: Order Comment: Speci men Type: BLOOD SPECIMEN Ordering Facility: [facility] Address: [address] [place] [address] Performed By: #### 5 7021-8 #### [facility] CLIA [id number] [address] [place], [place] [address] [place] Hematocrit (Bld) [Volume fraction] 46.3 % Normal 39.0-51.0 [facility] Comment on above: Order Comment: Speci men Type: BLOOD SPECIMEN Ordering Facility: [facility] Address: [address] [place] [address] Performed By: #### 5 7021-8 #### [facility] CLIA [id number] [address] [place] [address] [place] Hemoglobin (Bld) [Mass/Vol] 16.0 g/dL Normal 13.0-17.0 [facility] Comment on above: Order Comment: Speci men Type: BLOOD SPECIMEN Ordering Facility: [facility] Address: [address] [place] [address] Performed By: #### 5 7021-8 #### [facility] CLIA [id number] [address] [place] [address] [place] Lymphocytes (Bld) [#/Vol] 2.31 10*3/uL Normal 1.00-4.00 [facility] Comment on above: Order Comment: Speci men Type: BLOOD SPECIMEN Ordering Facility: [facility] Address: [address] [place] [address] Performed By: #### 5 7021-8 #### [facility] CLIA [id number] [address] [place], [place] [address] [place] Lymphocytes/100 WBC (Bld) 25.7 % Normal [facility] Comment on above: Order Comment: Speci men Type: BLOOD SPECIMEN Ordering Facility: [facility] Address: [address] [place], [place] [address] Performed By: #### 5 7021-8 #### [facility] CLIA [id number] [address] [place], [place] [address] [place] MCH (RBC) [Entitic mass] 33.3 pg Normal 26.0-34.0 [facility] Comment on above: Order Comment: Speci men Type: BLOOD SPECIMEN Ordering Facility: [facility] Address: [address] [place], [place] [address] Performed By: #### 5 7021-8 #### [facility] CLIA [id number] [address] [place] [address] [place] MCHC (RBC) [Mass/Vol] 34.6 g/dL Normal 30.5-36.0 [facility] Comment on above: Order Comment: Speci men Type: BLOOD SPECIMEN Ordering Facility: [facility] Address: [address] [place] [address] Performed By: #### 5 7021-8 #### [facility] CLIA [id number] [address] [place] [address] [place] MCV (RBC) [Entitic vol] 96.5 fL Normal 80.0-100.0 [facility] Comment on above: Order Comment: Speci men Type: BLOOD SPECIMEN Ordering Facility: [facility] Address: [address] [place] [address] Performed By: #### 5 7021-8 #### [facility] CLIA [id number] [address] [place] [address] [place] Monocytes (Bld) [#/Vol] 0.79 10*3/uL Normal <0.87 [facility] Comment on above: Order Comment: Speci men Type: BLOOD SPECIMEN Ordering Facility: [facility] Address: [address] [place] [address] Performed By: #### 5 7021-8 #### [facility] CLIA [id number] [address] [place] [address] [place] Monocytes/100 WBC (Bld) 8.8 % Normal A [facility] Comment on above: Order Comment: Speci men Type: BLOOD SPECIMEN Ordering Facility: [facility] Address: [address] [place] [address] Performed By: #### 5 7021-8 #### [facility] CLIA [id number] [address] [place] [address] [place] Neutrophils (Bld) [#/Vol] 5.78 10*3/uL Normal 1.45-7.50 [facility] Comment on above: Order Comment: Speci men Type: BLOOD SPECIMEN Ordering Facility: [facility] Address: [address] [place] [address] Performed By: #### 5 7021-8 #### [facility] CLIA [id number] [address] [place] [address] [place] Neutrophils/100 WBC (Bld) 64.2 % Normal [facility] Comment on above: Order Comment: Speci men Type: BLOOD SPECIMEN Ordering Facility: [facility] Address: [facility] [address] Performed By: #### 5 7021-8 #### [facility] CLIA [id number] [address] [place] [address] [place] Platelet mean volume (Bld) [Entitic vol] 10.5 fL Normal 9.0-12.7 [facility] Comment on above: Order Comment: Speci men Type: BLOOD SPECIMEN Ordering Facility: [facility] Address: [address] [place], [place] [address] Performed By: #### 5 7021-8 #### [facility] CLIA [id number] [address] [place] [address] [place] Platelets (Bld) [#/Vol] 229 10*3/uL Normal 150-400 [facility] Comment on above: Order Comment: Speci men Type: BLOOD SPECIMEN Ordering Facility: [facility] Address: [address] Performed By: #### 5 7021-8 #### [facility] CLIA [id number] [address] [place] [address] [place] RBC (Bld) [#/Vol] 4.80 10*6/uL Normal 4.20-6.00 [facility] Comment on above: Order Comment: Speci men Type: BLOOD SPECIMEN Ordering Facility: [facility] Address: [address] [place], [place] [address] Performed By: #### 5 7021-8 #### [facility] CLIA [id number] [address] [place] [address] [place] [address] [place] WBC (Bld) [#/Vol] 9.00 10*3/uL Normal 3.70-11.00 [facility] Comment on above: Order Comment: Speci men Type: BLOOD SPECIMEN Ordering Facility: [facility] Address: [address] [place] [address] Performed By: #### 5 7021-8 #### [facility] CLIA [id number] [address] [place] [address] [place] CT ABD/PEL W IVCONon 022 CT ABD/PEL W IVCON * * *Final Report* * * DATE OF EXAM: Feb 07 2022 9:52PM [facility] 0530 - CT ABD/PEL W IVCON / PROCEDURE REASON: Abdominal pain, acute, nonlocalized * * * * Physician Interpretation * * * * EXAMINATION: CT ABDOMEN AND PELVIS WITH IV CONTRAST CLINICAL HISTORY: Abdominal pain, acute, nonlocalized Injury sustained underneath the left rib, was hanging stationary after he caught the underside left side of his ribs on the back of a trailer. Tender to palpat ion alongside the left rib cage but also tender to palpation to the left upper q uadrant. Concern for splenic injury. TECHNIQUE: CT of the abdomen and pelvis was performed using standard technique, scanning from just above the dome of the diaphragm to the symphysis pubis. MQ: CTAP_3 Contrast: IV: 100 ml of Omnipaque 350 : ml of CT Radiation dose: Integrated Dose-length product (DLP) for this visit = 1022 mGy*cm. CT Dose Reduction Employed: Automated exposure control (AEC) COMPARISON: CT 10/21/2013 RESULT: Liver: No mass. Biliary: No bile duct dilation. The gallbladder is unremarkable. Spleen: No mass. No splenomegaly. Pancreas: No mass or duct dilation. Adrenals: No mass. Kidneys: No renal mass or hydronephrosis bilaterally. GI tract: No dilation or wall thickening. The appendix is unremarkable. Lymph nodes: No abdominal or pelvic lymphadenopathy. Mesentery/Peritoneum : No ascites or mass. Retroperitoneum: No mass. Vasculature: - Abdominal aorta and iliac arteries: No aneurysm. - Celiac and SMA: Patent without stenosis. - Portal venous system (SMV, splenic vein, portal vein and branches): Patent. - Hepatic veins: Patent. Pelvis: No mass, ascites or fluid collection. Mild nonspecific bladder wall thickening is unchanged since prior study. Bones/Soft Tissues: No acute fracture or osseous lesions are identified. Lower thorax: Unremarkable. Data Officer (topogram) images: No additional findings. IMPRESSION: No acute findings in the abdomen or pelvis to explain the patient's symptoms Ride Assembly Supervisor: PSCB Transcribe Date/Time: Feb 07 2022 11:25P Dictated by : FRANKO CROWLEY MD This examination was interpreted and the report reviewed and electronically signed by: FRANKO CROWLEY MD on Feb 07 2022 11:34PM EST [id number] Normal [facility] ED NOTEon 02-07-2022 ED NOTE HNO ID: [id number] Author: Sherita Foster RN Service: Emergency Medicine Author Type: Registered Nurse Type: ED Notes Filed: 02/07/2022 9:03 PM Note Text: C/o pain to left ribcage, x ray done in triage, IV placed, blood work to lab Normal [facility] ED PROV NOTEon 02-07-2022 ED PROV NOTE HNO ID: [id number] Author: Melody Lopez MD Service: Emergency Medicine Author Type: Physician Type: ED Provider Notes Filed: 02/07/2022 11:57 PM Note Text: Attending Note I personally saw and examined the patient. I reviewed the resident's note. I agree with the resident's assessment and plan unless otherwise noted. I was present for the significant portion of the procedure(s). Brief HPI: Eric Villa is a 41 year old male, denies prior medical history, presents to ED today for evaluation of left rib pain and LUQ abdominal pain. Patient reports that yesterday he fell and landed on side of a trailor. States he struck left lower ribs/left upper abdomen. No shortness of breath, pain with movement and deep breathing as well as palpation of left upper quadrant. Not on anticoagulation. No hematuria. No chest or back pain. Physical Exam: - Gen: Well appearing, NAD, vitals wnl. - HEENT: normal - CV: RRR - Pulm: No respiratory distress, CTAB - chest -left lower lateral rib tenderness to palpation. No bruising or obvious deformity. - abdomen: Soft, tenderness palpation left upper quadrant. No guarding - Neuro: No focal neurologic deficits, AANDOx3 MDM/Plan: Screening x-ray negative for pneumothorax, pleural effusion or rib fractures. Given the left upper quadrant tenderness on exam CT of the abdomen pelvis was obtained to rule out splenic injury with direct fall / blunt injury and trauma to the left upper quadrant. Ct imaging negative for splenic injury. No rib fractures. No pneumothorax seen on imaging. Patient discharged from the Emergency Department. I do not feel that the patient's evaluation reveals any acute reason for admission at this time. I instructed them to either follow up with their primary care physician or promptly return to the Emergency Department for reevaluation should symptoms worsen or new symptoms develop. I explained what symptoms would indicate the need to return to the Emergency Department. Shared decision making was used. The patient voiced understanding of the treatment plan and is agreeable to plan. Melody Lopez MD 02/07/[address] [facility] ED PROV NOTE HNO ID: [id number] Author: Erasmo Mcrae MD Service: Emergency Medicine Author Type: Resident Type: ED Provider Notes Filed: 02/08/2022 1:44 AM Note Text: Attestation signed by Melody Lopez MD at 02/09/2022 7:51 AM Attending Note I evaluated the patient and personally participated in the zheng components. I agree with the resident's findings and plan as documented unless noted otherwise in my separate ED provider note and have discussed the case and management of the patient's care with the resident. Signature: Melody Lopez MD Date: 02/09/2022 Time: 7:51 AM ED Provider Note Patient Name: Eric Villa : 1980 SERVICE DATE: 02/07/22 History Patient presents with: Rib Injury: Pt hooked lower part of ribs on side of a trailer yesterday. Pain has increased today. No bruising to area Patient is a 41-year-old male presenting to ED due to left wrist injury. Patient endorsed that yesterday morning, he was working on the back of a trailer and was standing on the wheel well. He endorsed that he slipped off the edge and cut the underside of his left ribs on a wooden section of the trailer. He endorsed that for a couple seconds he was hanging like this. He eventually fell off and landed on his feet. He endorses that he has left over left-sided rib pain and left upper quad abdominal pain. He denies any nausea or vomiting, diarrhea or constipation. He denies any bloody bowel movements. History reviewed. No pertinent past medical history. History reviewed. No pertinent surgical history. No family history on file. Social History Tobacco Use - Smoking status: Every Day Packs/day: 1.00 Types: Cigarettes - Smokeless tobacco: Never Vaping Use - Vaping Use: Never used Substance and Sexual Activity - Alcohol use: Yes Comment: 2 beers /night - Drug use: Yes Types: Marijuana - Sexual activity: Not on file ALLERGIES Allergen Reactions - Penicillins Unknown Review of Systems Constitutional: Negative for activity change, appetite change, chills, diaphoresis, fatigue and fever. HENT: Negative for congestion and rhinorrhea. Eyes: Negative for photophobia, pain, discharge, redness and itching. Respiratory: Negative for cough, shortness of breath and wheezing. Cardiovascular: Negative for chest pain, palpitations and leg swelling. Gastrointestinal: Positive for abdominal pain (Left upper quadrant abdominal pain). Negative for abdominal distention, anal bleeding, constipation, diarrhea, nausea and vomiting. Endocrine: Negative for cold intolerance and heat intolerance. Genitourinary: Negative for decreased urine volume, dysuria, frequency, hematuria and urgency. Musculoskeletal: Negative for arthralgias, back pain, gait problem, myalgias, neck pain and neck stiffness. Left-sided rib pain Skin: Negative for color change and pallor. Neurological: Negative for dizziness, weakness, light-headedness and headaches. Psychiatric/Behavior al: Negative for agitation, behavioral problems, confusion and decreased concentration. Physical Exam Vitals [02/07/22 1843] BP Pulse Temp Temp src Resp SpO2 Weight Height 146/90 69 36.8 ?C (98.2 ?F) -- 18 98 % 84.4 kg (186 lb) 1.778 m (5' 10) Physical Exam Vitals reviewed. Constitutional: General: He is not in acute distress. Appearance: Normal appearance. He is not ill-appearing or toxic-appearing. HENT: Head: Normocephalic and atraumatic. Right Ear: Tympanic membrane, ear canal and external ear normal. There is no impacted cerumen. Left Ear: Tympanic membrane, ear canal and external ear normal. There is no impacted cerumen. Nose: Nose normal. No congestion or rhinorrhea. Mouth/Throat: Mouth: Mucous membranes are moist. Pharynx: Oropharynx is clear. No oropharyngeal exudate or posterior oropharyngeal erythema. Eyes: General: Right eye: No discharge. Left eye: No discharge. Extraocular Movements: Extraocular movements intact. Conjunctiva/sclera: Conjunctivae normal. Pupils: Pupils are equal, round, and reactive to light. Cardiovascular: Rate and Rhythm: Normal rate and regular rhythm. Pulses: Normal pulses. Heart sounds: Normal heart sounds. No murmur heard. No gallop. Pulmonary: Effort: Pulmonary effort is normal. No respiratory distress. Breath sounds: Normal breath sounds. No wheezing or rales. Abdominal: General: There is no distension. Palpations: Abdomen is soft. Tenderness: There is abdominal tenderness (Tenderness to palpation to the left upper quadrant of the abdomen). There is no guarding or rebound. Musculoskeletal: General: Tenderness (Tenderness to palpation to the left chest wall in the lower ribs) present. No swelling or deformity. Normal range of motion. Cervical back: Normal range of liz (more content not included)... Normal [facility] XR RIB/CHST 3V AP RIB/OBL/CH ST Mike 02-07-2022 XR RIB/CHST 3V AP RIB/OBL/CHST L * * *Final Report* * * DATE OF EXAM: Feb 07 2022 7:26PM [id number] - XR RIB/CHST 3V AP RIB/OBL/CHST L / PROCEDURE REASON: Chest pain, nonspecific * * * * Physician Interpretation * * * * EXAMINATION: XR RIB/CHST 3V AP RIB/OBL/CHST L CLINICAL HISTORY: Chest pain, nonspecific Technique: XR RIB/CHST 3V AP RIB/OBL/CHST L -- LEFT ribs with 4 views on 6 images Comparison: None RESULT: The lungs are clear. No pneumothorax or pleural effusion. Normal cardiac size. No obvious rib fractures. IMPRESSION: No obvious left rib fractures. Ride Assembly Supervisor: PSCB Transcribe Date/Time: Feb 07 2022 8:14P Dictated by : CHRISTINE SEO MD This examination was interpreted and the report reviewed and electronically signed by: CHRISTINE SEO MD on Feb 07 2022 8:16PM EST [id number] Normal [facility] ED Provider Noteon ED Provider Note Cassy CARDONA ED EMERGENCY DEPARTMENT ENCOUNTER Pt Name: Eric Villa Birthdate 1980 Date of evaluation: 10/31/2021 Provider: Clayton Coates, DO CHIEF COMPLAINT Chief Complaint Patient presents with ? Knee Injury HISTORY OF PRESENT ILLNESS (Location/Symptom, Timing/Onset, Context/Setting, Quality, Duration, Modifying Factors, Severity) Note limiting factors. I wore a mask for the entirety of this encounter. Eric Villa is a 40 y.o. male who presents to the emergency department with right knee laceration. States he was getting in bed when he tripped and caught the skin of his knee on the bed frame. Bleeding is controlled. States the pain is mild. Patient is able to ambulate and fully range his knee. Denies any weakness or numbness. Did not hit his head or lose consciousness. Denies any back pericardectomy, chest pain, shortness of breath, dumping, nausea, vomiting. Nursing Notes were reviewed. REVIEW OF SYSTEMS (2+ for level 4; 10+ for level 5) 14 systems reviewed and otherwise acutely negative except as in the [place]. PAST MEDICAL HISTORY History reviewed. No pertinent past medical history. SURGICAL HISTORY Past Surgical History: Procedure Laterality Date ? HIP SURGERY Left 2010 CURRENT MEDICATIONS Current Discharge Medication List CONTINUE these medications which have NOT CHANGED Details naproxen (NAPROSYN) 500 MG tablet Take 1 tablet by mouth 2 times daily (with meals) Qty: 30 tablet, Refills: 0 ALLERGIES Pcn [penicillins] FAMILY HISTORY History reviewed. No pertinent family history. SOCIAL HISTORY Social History Socioeconomic History ? Marital status: Single Spouse name: None ? Number of children: None ? Years of education: None ? Highest education level: None Occupational History ? None Tobacco Use ? Smoking status: Current Every Day Smoker Packs/day: 1.00 Types: Cigarettes ? Smokeless tobacco: Never Used Vaping Use ? Vaping Use: Never used Substance and Sexual Activity ? Alcohol use: Yes Comment: daily ? Drug use: No ? Sexual activity: None Other Topics Concern ? None Social History Narrative ? None Social Determinants of Health Financial Resource Strain: ? Difficulty of Paying Living Expenses: Not on file Food Insecurity: ? Worried About Running Out of Food in the Last Year: Not on file ? Ran Out of Food in the Last Year: Not on file Transportation Needs: ? Lack of Transportation (Medical): Not on file ? Lack of Transportation (Non-Medical): Not on file Physical Activity: ? Days of Exercise per Week: Not on file ? Minutes of Exercise per Session: Not on file Stress: ? Feeling of Stress : Not on file Social Connections: ? Frequency of Communication with Friends and Family: Not on file ? Frequency of Social Gatherings with Friends and Family: Not on file ? Attends Faith Services: Not on file ? Active Member of Clubs or Organizations: Not on file ? Attends Club or Organization Meetings: Not on file ? Marital Status: Not on file Intimate Partner Violence: ? Fear of Current or Ex-Partner: Not on file ? Emotionally Abused: Not on file ? Physically Abused: Not on file ? Sexually Abused: Not on file Housing Stability: ? Unable to Pay for Housing in the Last Year: Not on file ? Number of Places Lived in the Last Year: Not on file ? Unstable Housing in the Last Year: Not on file SCREENINGS PHYSICAL EXAM (up to 7 for level 4, 8 or more for level 5) ED Triage Vitals BP Temp Temp Source Heart Rate Resp SpO2 Height Weight 10/31/21 0051 10/31/21 0051 10/31/21 0051 10/31/21 0051 10/31/21 0051 10/31/21 0051 10/31/21 0050 10/31/2149 128/80 98.5 ?F (36.9 ?C) Temporal 87 16 94 % 5' 10 (1.778 m) 186 lb (84.4 kg) CONSTITUTIONAL: AOx4, no apparent distress, appears stated age HEAD: normocephalic, atraumatic EYES: PERRL, EOMI ENT: moist mucous membranes, uvula midline NECK: supple, symmetric BACK: symmetric LUNGS: clear to auscultation bilaterally CARDIOVASCULAR: regular rate and rhythm, no murmurs, rubs or gallops ABDOMEN: soft, non-tender, non-distended with normal active bowel sounds : deferred NEUROLOGIC: MAEx4, no focal sensory or motor deficits MUSCULOSKELETAL: no clubbing, cyanosis or edema, full range of motion of the SKIN: no exposed rash, 8 cm U-shaped laceration anterior knee DIAGNOSTIC RESULTS EKG (Per Emergency Physician): RADIOLOGY (Per Emergency Physician): No results found. Interpretation per the Radiologist below, if available at the time of this note: No results found. ED BEDSIDE ULTRASOUND: Performed by ED Physician - none LABS: Labs Reviewed - No data to display All other labs were within normal range or not returned as of this dictation. EMERGENCY DEPARTMENT COURSE and DIFFERENTIAL DIAGNOSIS/MDM: Vitals: Vitals: 10/31/21 0050 10/31/2150 BP: 128/80 Pulse: 87 Resp: 16 Temp: 98.5 ?F (36.9 ?C) TempSrc: T (more content not included)... Normal [facility] 10-31-2021 Clayton Coates DO 10/31/2021 7:16 AM [facility]air Date/Time: 10/31/2021 7:15 AM Performed by: Clayton Coates DO Authorized by: Clayton Coates DO Consent: Consent obtained: Verbal Consent given by: Patient Risks discussed: Infection, pain and poor cosmetic result Alternatives discussed: No treatment Anesthesia (see MAR for exact dosages): Anesthesia method: Local infiltration Local anesthetic: Lidocaine 1% WITH epi Laceration details: Location: Leg Leg location: R knee Length (cm): 8 Repair type: Repair type: Simple Pre-procedure details: Preparation: Patient was prepped and draped in usual sterile fashion Exploration: Wound exploration: wound explored through full range of motion and entire depth of wound probed and visualized Contaminated: no Treatment: Area cleansed with: Saline Amount of cleaning: Standard Irrigation solution: Sterile saline Irrigation volume: 1000 ml Irrigation method: Pressure wash Visualized foreign bodies/material removed: no Skin repair: Repair method: Sutures Suture size: 3-0 Suture material: Nylon Suture technique: Simple interrupted and vertical mattress Number of sutures: 9 Approximation: Approximation: Close Post-procedure details: Dressing: Splint for protection and non-adherent dressing Patient tolerance of procedure: Tolerated well, no immediate complications [employer] Work Phone: [employer] Work Phone: [facility]on 06-07-2021 CNOV Office Visit ([facility]) ERIC VILLA ([id number]) 1980 M Date Time Provider Department 06/07/21 11:10 AM KOKO KING During your visit today, we recorded the following information about you: Temperature Pulse Respiration Blood pressure 97.2 degrees 98/minute 18/minute 140/79 Weight 88.1 kg Koko King APRN.CNP 06/07/2021 12:30 PM Signed This note was created using Zondle. Subjective Eric Villa is a 40 year old male. The history is provided by the patient. No speech language assistant was used. Musculoskeletal Problem This is a new (right index finger ) problem. The current episode started yesterday. The problem occurs constantly. The problem has been unchanged. Associated symptoms include joint swelling and weakness. The symptoms are aggravated by bending. Review of Systems Musculoskeletal: Positive for joint swelling. Neurological: Positive for weakness. HISTORIES No past medical history on file. No past surgical history on file. No family history on file. Social History Tobacco Use - Smoking status: Current Every Day Smoker Packs/day: 1.00 - Smokeless tobacco: Never Used Vaping Use - Vaping Use: Never used Substance Use Topics - Alcohol use: Yes Comment: 2 beers /night - Drug use: Yes Types: Marijuana No current outpatient medications on file prior to visit. No current facility-administere d medications on file prior to visit. ALLERGIES Allergen Reactions - Penicillins Unknown DEPRESSION SCREENING Never done HIV SCREENING Never done DTAP,TDAP,TD(1 - Tdap) Never done LIPID SCREEN Never done COVID-19 VACCINE(3 - Booster for Pfizer series) due on 01/15/2021 INFLUENZA(1) Never done Objective BP 140/79 Pulse 98 Temp 36.2 ?C (97.2 ?F) Resp 18 Wt 88.1 kg (194 lb 1.9 oz) SpO2 98% BMI 27.85 kg/m? Physical Exam Vitals and nursing note reviewed. Constitutional: General: He is not in acute distress. Musculoskeletal: Right hand: Swelling, laceration and tenderness present. Decreased range of motion. Hands: Comments: + pain with flexion and extension Neurological: Mental Status: He is alert. Psychiatric: Behavior: Behavior is cooperative. XR Finger: IMPRESSION: No Acute Fracture. ? Ride Assembly Supervisor: CASIMIRO Transcribe Date/Time: Jun 07 2021 11:45A ? Dictated by : ROSEMARIE MCLAIN MD ? This examination was interpreted and the report reviewed and electronically signed by: ROSEMARIE MCLAIN MD on Jun 07 2021 11:46AM EST ? ? ASSESSMENT/PLAN: 1. Contusion of right index finger without damage to nail, initial encounter - ICD9: 923.3, ICD10: S60.021A (primary diagnosis) - APPLY FINGER SPLINT,DYNAMIC 2. Pain of finger of right hand - ICD9: 729.5, ICD10: M79.644 - XR DIGIT GENERAL 3V FRONTAL/LAT/OBL RIGHT- reviewed imaging and discussed with pt - APPLY FINGER SPLINT,DYNAMIC- applied in office -pt education along with discharge instructions given to pt -pt agreeable with plan -follow-up if symptoms don't improve in 3-5 days or get worse FANY Wilson APRN.CNP 06/07/2021 11:59 AM Signed CONTUSIONS GENERAL INFORMATION: A contusion, or bruise, is caused by an injury that does not break the skin. Bleeding under the skin causes it to look black and blue. It may take 2 or 3 weeks for the bruising to disappear. INSTRUCTIONS: 1. You may continue your normal daily activities as tolerated. Rest the injured area as much as possible. 2. Apply ice to the injury for 15 minutes each hour (while awake) for the first two days. Put the ice in a plastic bag and place a thin towel between the bag of ice and your skin. 3. After the first 1 to 2 days, you may apply heat to the injury to help relieve pain. You may use a warm heating pad, whirlpool bath, or warm moist towels for 15-20 minutes every hour (while awake) for 48 hours. 4. You may use medicines for pain such as acetaminophen, ibuprofen or aspirin (unless otherwise instructed by your physician). CONTACT YOUR DOCTOR OR RETURN TO THE ED IF: 1. Your pain becomes worse. 2. You develop a temperature over 101 F (38.3 C). 3. The swelling increases greatly in the area of the bruise. 4. Redness or lines of redness develop in the area of the bruise. Referring Provider: SELF [200] Allergies As of Date: 06/07/2021 Noted Allergy Reaction PENICILLINS 05/20/2021 16 - Unknown Date Reviewed: 06/07/2021 Reviewed by: Alva Salinas - Fully Assessed Reason for Visit: Finger Injury [2772] Primary Visit Diagnosis:Contusion of right index finger without damage to nail, initial encounter [S60.021A] Other Visit Diagnosis:Pain of finger of right hand [M79.644] Order(s):XR DIGIT GENERAL 3V FRONTAL/LAT/OBL RIGHT [[id number]] Order #: [id number] FUTURE APPLY FINGER SPLINT,DYNAMIC [[id number]] Order #: [id number] Problem List As Of Date: 06/07/2021 ( (more content not included)... Normal [facility] XR DIGIT 3V FRONTAL/LAT/OBL RTon 06-07-2021 XR DIGIT 3V FRONTAL/LAT/OBL RT * * *Final Report* * * DATE OF EXAM: Jun 07 2021 11:44AM [id number] - XR DIGIT 3V FRONTAL/LAT/OBL RT / PROCEDURE REASON: Pain of finger of right hand * * * * Physician Interpretation * * * * EXAMINATION: XR DIGIT 3V FRONTAL/LAT/OBL RT HISTORY: injury x1 day. Pain PIP R index. Pain of finger of right hand. TECHNIQUE: XR DIGIT 3V FRONTAL/LAT/OBL RT Laterality: RIGHT Number of different views (projections): 3 M: XB_1 COMPARISON: There are no prior studies for comparison. RESULT: 3 views of the right second finger show no acute osseous, articular or soft tissue abnormality. IMPRESSION: No Acute Fracture. Ride Assembly Supervisor: PSCB Transcribe Date/Time: Jun 07 2021 11:45A Dictated by : ROSEMARIE MCLAIN MD This examination was interpreted and the report reviewed and electronically signed by: ROSEMARIE MCLAIN MD on Jun 07 2021 11:46AM EST [id number] Normal [facility] ED NOTEon 05-20-2021 ED NOTE HNO ID: [id number] Author: Darshana Galicia RN Service: Emergency Medicine Author Type: Registered Nurse Type: ED Notes Filed: 05/20/2021 9:17 AM Note Text: Tested regularly at work and the test has always been negative but yesterday had a bout of diarrhea and vomited X1. States his employer needs a work noted to return to work and get a covid test here Normal [facility] ED Triage Noteon 05-20-2021 ED Triage Note HNO ID: [id number] Author: Catherine Peterson PA-C Service: Emergency Medicine Author Type: Physician Wildlife Forensic Geneticist Type: ED Triage Notes Filed: 05/20/2021 9:30 AM Note Text: ED INTAKE NOTE Patient Name: Eric Villa Service Date: 05/20/21 BRIEF HPI: 40-year-old male presents for COVID-19 testing. He reports that he had one episode of vomiting and 3 episodes of diarrhea over the past 24 hours and his boss instructed him to go to the emergency department for potential Covid testing and medical clearance. Patient denies fever, chills, chest pain, shortness of breath or abdominal pain. BRIEF EXAM: Awake and Alert GAUTAM INTAKE WORKUP: Deferred- pt does not meet criteria for covid-19 testing per [facility] policy. Discussed this with patient and he does not want to check in to the ED or have any additional work up or testing. Pt given referral to outpatient covid-19 testing resources. SIGNATURE: MARIANNE Moe [facility] Vital Signs Date Time Vital Sign Value Performing Clinician Maria T patino 10-31-2021 00:51-0400 Body temperature 98.49 [degF] Clayton Gombash DO Work Phone: [facility] 10-31-2021 00:51-0400 Diastolic blood pressure 80 mm[Hg] Clayton Gombash D O Work Phone: [facility] 10-31-2021 00:51-0400 Heart rate 87 /min Clayton Gombash DO Work Phone: [facility] 10-31-2021 00:51-0400 Respiratory rate 16 /min Clayton Gombash DO Work Phone: [facility] 10-31-2021 00:51-0400 SaO2% (BldA) [Mass fraction] 94 % Clayton Gombash DO Work Phone: [facility] 10-31-2021 00:51-0400 Systolic blood pressure 128 mm[Hg] Clayton Gombash DO Work Phone: [facility] 10-31-2021 00:50-0400 Body height 177.8 cm Clayton Gombash DO Work Phone: [facility] 10-31-2021 00:50-0400 Body mass index (BMI) [Ratio] 26.69 kg/m2 Clayton Gombash DO Work Phone: [facility] 10-31-2021 00:50-0400 Body weight 84.37 kg Clayton Gombash DO Work Phone: [facility] Encounters Encounter Date Encounter Type Care Provider Facility Start: 12-11-2024 End: 12-11-2024 ambulatory [facility] Start: 12-04-2024 End: 12-04-2024 ambulatory [facility] Start: 11-27-2024 End: 11-28-2024 ambulatory [facility] Start: 11-20-2024 End: 11-20-2024 ambulatory [facility] Start: 11-13-2024 End: 11-13-2024 ambulatory [facility] Start: 11-06-2024 End: 11-07-2024 ambulatory [facility] Start: 10-30-2024 End: 10-30-2024 ambulatory [facility] Start: 10-23-2024 End: 10-24-2024 ambulatory [facility] Start: 10-16-2024 End: 10-16-2024 ambulatory [facility] Start: 10-09-2024 End: 10-09-2024 ambulatory [facility] Start: 10-02-2024 End: 10-02-2024 ambulatory [facility] Start: 09-25-2024 End: 09-25-2024 ambulatory [facility] Start: 09-18-2024 End: 09-18-2024 ambulatory [facility] Start: 09-11-2024 End: 09-11-2024 ambulatory [facility] Start: 09-04-2024 End: 09-05-2024 ambulatory [facility] Start: 08-29-2024 End: 08-29[facility]2024 [facility] Start: 08-27-2024 End: 08-27-2024 ambulatory [facility] Start: 08-26-2024 End: 08-26-2024 ambulatory [facility] Start: 08-20-2024 End: 08-20-2024 Subsequent hospital visit by physician Catherine Perez [facility] Start: 08-19-2024 End: 08-19-2024 Subsequent hospital visit by physician Liseth Sharp [facility] Comment on above: Severe opioid use di sorder (HCC) Start: 08-15-2024 End: 08-15-2024 Subsequent hospital visit by physician Darío Thibodeaux MD Work Phone: [facility] Comment on above: Arrived Start: 08-13-2024 End: 08-13-2024 Subsequent hospital visit by physician Catherine Perez [facility] Comment on above: Arrived Start: 08-12-2024 End: 08-12-2024 Subsequent hospital visit by physician Darío Thibodeaux MD Work Phone: [facility] Comment on above: Severe opioid use di sorder (HCC) Start: 08-08-2024 End: 08-08-2024 Subsequent hospital visit by physician Darío Thibodeaux MD Work Phone: [facility] Start: 08-06-2024 End: 08-06-2024 Subsequent hospital visit by physician Darío Thibodeaux MD Work Phone: [facility] Comment on above: Arrived Start: 08-05-2024 End: 08-05-2024 Subsequent hospital visit by physician Darío Thibodeaux MD Work Phone: [facility] Comment on above: Severe opioid use di sorder (HCC) Start: 08-01-2024 End: 08-01-2024 Subsequent hospital visit by physician Darío Thibodeaux MD Work Phone: [facility] Comment on above: Severe opioid use di sorder (HCC) Start: 07-30-2024 End: 07-30-2024 Subsequent hospital visit by physician Darío Thibodeaux MD Work Phone: [facility] Comment on above: Arrived Start: 07-29-2024 End: 07-29-2024 Subsequent hospital visit by physician Darío Thibodeaux MD Work Phone: [facility] Comment on above: Arrived Start: 07-25-2024 End: 07-25-2024 Subsequent hospital visit by physician Darío Thibodeaux MD Work Phone: [facility] Comment on above: Arrived Start: 07-23-2024 End: 07-23-2024 Subsequent hospital visit by physician Darío Thibodeaux MD Work Phone: [facility] Comment on above: Arrived Start: 07-22-2024 End: 07-22-2024 Subsequent hospital visit by physician Darío Thibodeaux MD Work Phone: [facility] Comment on above: Severe opioid use di sorder (HCC) Start: 07-18-2024 End: 07-18-2024 Subsequent hospital visit by physician Darío Thibodeaux MD Work Phone: [facility] Comment on above: Opioid use disorder Start: 07-16-2024 End: 07-16-2024 Subsequent hospital visit by physician Darío Thibodeaux MD Work Phone: [facility] Comment on above: Arrived Start: 07-15-2024 End: 07-15-2024 Subsequent hospital visit by physician Darío Thibodeaux MD Work Phone: [facility] Comment on above: Opioid use disorder Start: 07-11-2024 End: 07-11-2024 Subsequent hospital visit by physician Darío Thibodeaux MD Work Phone: [facility] Comment on above: Arrived Start: 07-10-2024 End: 07-10-2024 Subsequent hospital visit by physician Darío Thibodeaux MD Work Phone: [facility] Comment on above: Arrived Start: 07-04-2024 End: 07-04-2024 Subsequent hospital visit by physician Darío Thibodeaux MD Work Phone: [facility] Start: 07-03-2024 End: 07-04-2024 Subsequent hospital visit by physician Darío Thibodeaux MD Work Phone: [facility] Comment on above: Arrived Start: 07-02-2024 End: 07-02-2024 Subsequent hospital visit by physician Darío Thibodeaux MD Work Phone: [facility] Comment on above: Severe opioid use di sorder (HCC) Start: 07-01-2024 End: 07-01-2024 Subsequent hospital visit by physician Darío Thibodeaux MD Work Phone: [facility] Comment on above: Arrived Start: 06-25-2024 End: 06-25-2024 Subsequent hospital visit by physician Darío Thibodeaux MD Work Phone: [facility] Comment on above: Arrived Start: 06-18-2024 End: 06-18-2024 Subsequent hospital visit by physician Darío Thibodeaux MD Work Phone: [facility] Comment on above: Opioid use disorder Start: 06-13-2024 End: 06-13-2024 Subsequent hospital visit by physician Darío Thibodeaux MD Work Phone: [facility] Comment on above: Severe opioid use di sorder (HCC) Start: 06-11-2024 End: 06-11-2024 Subsequent hospital visit by physician Liseth Sharp [facility] Comment on above: Opioid use disorder Start: 05-03-2023 End: 05-03-2023 Subsequent hospital visit by physician Moni Boyce MD Work Phone: [facility] Comment on above: Arrived Start: 05-02-2023 Documentation procedure Deianira [facility] Start: 05-01-2023 Documentation procedure Deianira [facility] Start: 04-26-2023 End: 04-26-2023 Subsequent hospital visit by physician Moni Boyce MD Work Phone: [facility] Comment on above: Severe opioid use di sorder (HCC); Mild cannabis use disorder Start: 04-17-2023 Documentation procedure Deianira [facility] Start: 04-12-2023 End: 04-12-2023 Subsequent hospital visit by physician Moni Boyce MD Work Phone: [facility] Start: 04-05-2023 End: 04-05-2023 Subsequent hospital visit by physician Moni Boyce MD Work Phone: [facility] Comment on above: Mild cannabis use di sorder (Primary Dx); Severe opioid use disorder (HCC) Start: 03-29-2023 End: 03-29-2023 Subsequent hospital visit by physician Moni Boyce MD Work Phone: [facility] Comment on above: Severe opioid use di sorder (HCC) (Primary Dx); Mild cannabis use disorder Start: 03-22-2023 End: 03-22-2023 Subsequent hospital visit by physician Moni Boyce MD Work Phone: [facility] Start: 03-15-2023 End: 03-15-2023 Subsequent hospital visit by physician Moni Boyce MD Work Phone: [facility] Start: 03-08-2023 End: 03-08-2023 Subsequent hospital visit by physician Moni Boyce MD Work Phone: [facility] Comment on above: Arrived Start: 03-07-2023 Documentation procedure Deianira [facility]any [facility] Start: 03-01-2023 End: 03-01-2023 Subsequent hospital visit by physician Moni Boyce MD Work Phone: [facility] Comment on above: Severe opioid use di sorder (HCC) (Primary Dx) Start: 02-22-2023 End: 02-22-2023 Subsequent hospital visit by physician Moni Boyce MD Work Phone: [facility] Comment on above: Severe opioid use di sorder (HCC); Mild cannabis use disorder Start: 02-15-2023 End: 02-15-2023 Subsequent hospital visit by physician Moni Boyce MD Work Phone: [facility] Comment on above: Severe opioid use di sorder (HCC); Mild cannabis use disorder Start: 02-07-2023 Documentation procedure Deianira Bethany [facility] Start: 02-06-2023 End: 02-06-2023 Subsequent hospital visit by physician Moni Boyce MD Work Phone: [facility] Comment on above: Severe opioid use di sorder (HCC) (Primary Dx); Mild cannabis use disorder Start: 02-02-2023 End: 02-02-2023 Subsequent hospital visit by physician Moni Boyce MD Work Phone: [facility] Comment on above: Arrived Start: 02-01-2023 End: 02-01-2023 Subsequent hospital visit by physician Moni Boyce MD Work Phone: [facility] Comment on above: Mild cannabis use di sorder (Primary Dx); Severe opioid use disorder (HCC) Start: 01-31-2023 End: 01-31-2023 Subsequent hospital visit by physician Moni Boyce MD Work Phone: [facility] Comment on above: Arrived Start: 01-26-2023 End: 01-26-2023 Subsequent hospital visit by physician Moni Boyce MD Work Phone: [facility] Start: 01-24-2023 End: 01-24-2023 Subsequent hospital visit by physician Moni Boyce MD Work Phone: [facility] Comment on above: Mild cannabis use di sorder (Primary Dx); Severe opioid use disorder (HCC) Start: 01-23-2023 End: 01-23-2023 Subsequent hospital visit by physician Moni Boyce MD Work Phone: [facility] Comment on above: Severe opioid use di sorder (HCC) [F11.20 (ICD-10-CM)]; Mild cannabis use disorder [F12.10 (ICD-10-CM)] Start: 01-19-2023 End: 01-19-2023 Subsequent hospital visit by physician Mert Crawford [facility] Comment on above: Severe opioid use di sorder (HCC) (Primary Dx); Mild cannabis use disorder Start: 01-18-2023 Documentation procedure Deianira Bethany [facility] Start: 01-17-2023 End: 01-17-2023 Subsequent hospital visit by physician Moni Boyce MD Work Phone: [facility] Comment on above: No Show Start: 01-17-2023 Documentation procedure Deianira Bethany [facility] Start: 01-16-2023 End: 01-16-2023 Subsequent hospital visit by physician Moni Boyce MD Work Phone: [facility] Comment on above: Arrived Start: 01-12-2023 End: 01-12-2023 Subsequent hospital visit by physician Moni Boyce MD Work Phone: [facility] Comment on above: Arrived Start: 01-09-2023 End: 01-09-2023 Subsequent hospital visit by physician Moni Boyce MD Work Phone: [facility] Comment on above: Arrived Start: 01-05-2023 End: 01-05-2023 Subsequent hospital visit by physician Mert Crawford [facility] Comment on above: Severe opioid use di sorder (HCC) (Primary Dx); Mild cannabis use disorder Start: 01-03-2023 End: 01-03-2023 Subsequent hospital visit by physician Moni Boyce MD Work Phone: [facility] Comment on above: Arrived Start: 01-02-2023 End: 01-02-2023 Subsequent hospital visit by physician Moni Boyce MD Work Phone: [facility] Comment on above: Severe opioid use di sorder (HCC) (Primary Dx); Mild cannabis use disorder Start: 12-29-2022 End: 12-29-2022 Subsequent hospital visit by physician Mert Crawford [facility] Comment on above: Arrived Start: 12-27-2022 End: 12-27-2022 Subsequent hospital visit by physician Mert Crawford [facility] Start: 12-26-2022 End: 12-26-2022 Subsequent hospital visit by physician Moni Boyce MD Work Phone: [facility] Comment on above: Arrived Start: 12-26-2022 Documentation procedure Deianira [facility]any [facility] Start: 2022 End: 2022 Subsequent hospital visit by physician Mert Crawford [facility] Comment on above: Arrived Start: 12-15-2022 End: 12-15-2022 Subsequent hospital visit by physician Mert Crawford [facility] Start: 12-13-2022 End: 12-13-2022 Subsequent hospital visit by physician Deianwilber Crawford [facility] Comment on above: Arrived Start: 12-12-2022 End: 12-12-2022 Subsequent hospital visit by physician Mert Crawford [facility] Start: 12-12-2022 End: 12-12-2022 Subsequent hospital visit by physician Moin Boyce MD Work Phone: [facility] Comment on above: Opioid type dependen ce, continuous (HCC) (Primary Dx); Cannabis abuse, continuous Start: 12-05-2022 End: 12-05-2022 Subsequent hospital visit by physician Moni Boyce MD Work Phone: [facility] Comment on above: Severe opioid use di sorder (HCC); Mild cannabis use disorder Start: 02-07-2022 End: 02-08-2022 Emergency department patient visit [facility] Facility:[facility] Start: 10-31-2021 End: 10-31-2021 Emergency department patient visit Clayton Coates DO Work Phone: [facility] Comment on above: Knee laceration, rig ht, initial encounter (Primary Dx) Start: 05-20-2021 End: 05-20-2021 Emergency department patient visit [facility] Facility:[facility] Start: 10-10-2016 End: 10-11-2016 Emergency department patient visit [facility] Facility:[facility] Procedures Date Procedure Procedure Detail Performing Clinician Start: 08-19-2024 MEDICATION ASSISTED TREATMENT PANEL Darío Thibodeaux MD Work Phone: Start: 08-12-2024 MEDICATION ASSISTED TREATMENT PANEL Darío Thibodeaux MD Work Phone: Start: 08-05-2024 MEDICATION ASSISTED TREATMENT PANEL Darío Thibodeaux MD Work Phone: Start: 08-01-2024 MEDICATION ASSISTED TREATMENT PANEL Darío Thibodeaux MD Work Phone: Start: 07-22-2024 MEDICATION ASSISTED TREATMENT PANEL Darío Thibodeaux MD Work Phone: Start: 06-11-2024 Adult depression scr eening assessment Liseth Sharp [facility] Start: 04-05-2023 IGNATIA DRUG SCREEN Javed Boyce MD Work Phone: Start: 03-29-2023 Drug test def 1-7 classes Moni Boyce MD Work Phone: Start: 03-29-2023 IGNATIA DRUG SCREEN Javed Boyce MD Work Phone: Start: 03-01-2023 BUPRENORPHINE SCREEN Shankar Boyce MD Work Phone: Start: 03-01-2023 Drug test def 1-7 classes Moni Boyce MD Work Phone: Start: 03-01-2023 ETHYL GLUCURONIDE SC REEN, URINE Moni Boyce MD Work Phone: Start: 03-01-2023 IGNATIA DRUG SCREEN Javed Boyce MD Work Phone: Start: 02-07-2023 Adult depression scr eening assessment Mert Crawford Start: 01-24-2023 Drug test def 1-7 classes Moni Boyce MD Work Phone: Start: 01-24-2023 IGNATIA DRUG SCREEN Javed Boyce MD Work Phone: Start: 01-19-2023 Drug test def 1-7 classes Rashaad Vargas MD Work Phone: Start: 01-19-2023 IGNATIA DRUG SCREEN Evelin Vargas MD Work Phone: Start: 01-02-2023 Drug test def 1-7 classes Moni Boyce MD Work Phone: Start: 01-02-2023 IGNATIA DRUG SCREEN Javed Boyce MD Work Phone: Start: 12-12-2022 Drug test def 1-7 classes Moni Boyce MD Work Phone: Start: 12-12-2022 IGNATIA DRUG SCREEN Javed Boyce MD Work Phone: Start: 12-05-2022 Adult depression scr eening assessment Moni Boyce MD Work Phone: Start: 10-31-2021 LACERATION REPAIR Clayton Jason Coates DO Work Phone: Plan of Treatment Date Care Activity Detail Author Start: 2053 RSV Immunization for Adults (1 - 1-dose 75+ series) RSV Immunization for Adults (1 - 1-dose 75+ series) [facility] Start: 2038 RSV Immunization age d 60 or older (1 - 1-dose 60+ series) RSV Immunization aged 60 or older (1 - 1-dose 60+ series) [facility] Start: 2028 Zoster Vaccines (1 of 2) Zoster Vacc melly (1 of 2) [facility] Start: 06-11-2025 Depression Screening Depression Scre ening [facility] Start: 09-02-2024 End: 09-02-2024 Patient encounter procedure 09/02/2024 5:30 PM EDT Appointment [facility] [address] [place] [address] Liseth Sharp [facility] Start: 08-29-2024 End: 08-29-2024 Patient encounter procedure 08/29/2024 5:30 PM EDT Appointment [facility] [address] [place] [address] Catherine Perez [facility] Start: 08-27-2024 End: 08-27-2024 Patient encounter procedure 08/27/2024 5:30 PM EDT Appointment [facility] [address] [place] [address] Catherine Perez [facility] Start: 08-26-2024 End: 08-26-2024 Patient encounter procedure 08/26/2024 5:30 PM EDT Appointment [facility] [address] [place] [address] Liseth Sharp [facility] Start: 08-22-2024 End: 08-22-2024 Patient encounter procedure 08/22/2024 5:30 PM EDT Appointment [facility] [address] [place] [address] Catherine Perez [facility] Start: 08-20-2024 End: 08-20-2024 Patient encounter procedure 08/20/2024 5:30 PM EDT Appointment [facility] [address] [place] [address] Catherine Perez [facility] Start: 08-19-2024 End: 08-19-2024 Patient encounter procedure 08/19/2024 5:30 PM EDT Appointment [facility] [address] [place] [address] Liseth Sharp [facility] Start: 08-15-2024 End: 08-15-2024 Patient encounter procedure [facility] Start: 08-12-2024 End: 08-12-2024 Patient encounter procedure 08/12/2024 5:30 PM EDT Appointment [facility] [address] [place] [address] Darío Thibodeaux MD [address] [address] Liseth Sharp [facility] Start: 08-08-2024 End: 08-08-2024 Patient encounter procedure [facility] Start: 08-06-2024 End: 08-06-2024 Patient encounter procedure [facility] Start: 08-05-2024 End: 08-05-2024 Patient encounter procedure 08/05/2024 5:30 PM EDT Appointment [facility] [address] [place] [address] Darío Thibodeaux MD [address] [address] Liseth Sharp [facility] Start: 08-01-2024 End: 08-01-2024 Patient encounter procedure [facility] Start: 07-30-2024 End: 07-30-2024 Patient encounter procedure 07/30/2024 5:30 PM EST Appointment [facility] [address] [place] [address] Darío Thibodeaux MD [address] [address] Liseth Sharp [facility] Start: 07-29-2024 End: 07-29-2024 Patient encounter procedure [facility] Start: 07-25-2024 End: 07-25-2024 Patient encounter procedure [facility] Start: 07-23-2024 End: 07-23-2024 Patient encounter procedure [facility] Start: 07-22-2024 End: 07-22-2024 Patient encounter procedure [facility] Start: 07-18-2024 End: 07-18-2024 Patient encounter procedure [facility] Start: 07-16-2024 End: 07-16-2024 Patient encounter procedure [facility] Start: 07-15-2024 End: 07-15-2024 Patient encounter procedure [facility] Start: 07-11-2024 End: 07-11-2024 Patient encounter procedure [facility] Start: 07-09-2024 End: 07-09-2024 Patient encounter procedure [facility] Start: 07-08-2024 End: 07-08-2024 Patient encounter procedure [facility] Start: 07-04-2024 End: 07-04-2024 Patient encounter procedure [facility] Start: 07-03-2024 End: 07-03-2024 Patient encounter procedure 07/03/2024 4:30 PM EST Appointment [facility] [address] [place] [address] Darío Thibodeaux MD [address] [address] [facility] Start: 07-02-2024 End: 07-02-2024 Patient encounter procedure [facility] Start: 07-01-2024 End: 07-01-2024 Patient encounter procedure 07/01/2024 9:00 AM EST Appointment [facility] [address] [place] [address] Darío Thibodeaux MD [address] [address] Jt Ramirez [facility] Start: 06-27-2024 End: 06-27-2024 Patient encounter procedure 06/27/2024 9:00 AM EST Appointment [facility] [address] [place] [address] Darío Thibodeaux MD [address] [phone] Jt Ramirez [facility] Start: 06-25-2024 End: 06-25-2024 Patient encounter procedure 06/25/2024 9:00 AM EST Appointment [facility] [address] [place] [address] Darío Thibodeaux MD [address] [address] Jt Ramirez [facility] Start: 06-24-2024 End: 06-24-2024 Patient encounter procedure 06/24/2024 9:00 AM EST Appointment [facility] [address] [place] [address] Darío Thibodeaux MD [address] [address] Jt Ramirez [facility] Start: 06-20-2024 End: 06-20-2024 Patient encounter procedure 06/20/2024 9:00 AM EST Appointment [facility] [address] [place] [address] Darío Thibodeaux MD [address] [phone] Jt Ramirez [facility] Start: 06-18-2024 End: 06-18-2024 Patient encounter procedure 06/18/2024 9:00 AM EST Appointment [facility] [address] [place] [address] Darío Thibodeaux MD [address] [place] [address] Jt Ramirez, [facility] Start: 06-17-2024 End: 06-17-2024 Patient encounter procedure 06/17/2024 9:00 AM EST Appointment [facility] [address] [place] [phone] Darío Thibodeaux MD [address] [address] Jt Ramirez, [facility] Start: 02-08-2024 Depression Screening Depression Scre ening [facility] Start: 01-28-2024 COVID-19 Vaccine ( season) COVID-19 Vaccine () [facility] Start: 01-28-2024 Influenza vaccination Influenza Vacc ine (#1) [facility] Start: 12-06-2023 Depression Screening Depression Scre ening [facility] Start: 05-17-2023 End: 05-17-2023 Patient encounter procedure 05/17/2023 6:00 PM EST Appointment [facility] [address] [place] [phone] Moni Boyce MD [address] [place] [phone] Mert Crawford [facility] Start: 05-10-2023 End: 05-10-2023 Patient encounter procedure 05/10/2023 6:00 PM EST Appointment [facility] [address] [place] [address] Moni Boyce MD [address] [place] [phone] Mert Crawford [facility] Start: 05-03-2023 End: 05-03-2023 Patient encounter procedure 05/03/2023 6:00 PM EST Appointment [facility] [address] [place] [address] Moni Boyce MD [address] [place] [phone] Mert Crawford [facility] Start: 04-26-2023 End: 04-26-2023 Patient encounter procedure 04/26/2023 6:00 PM EST Appointment [facility] [address] [place] [address] Moni Boyce MD [address] [place] [phone] Mert Crawford [facility] Start: 04-19-2023 End: 04-19-2023 Patient encounter procedure 04/19/2023 5:30 PM EST Appointment [facility] [address] [place] [phone] Moni Boyce MD [address] [place] [phone] Rossi Gonzales [facility] Start: 04-05-2023 End: 04-05-2023 Patient encounter procedure [facility] Start: 03-29-2023 End: 03-29-2023 Patient encounter procedure [facility] Start: 03-22-2023 End: 03-22-2023 Patient encounter procedure [facility] Start: 03-15-2023 End: 03-15-2023 Patient encounter procedure [facility] Start: 03-08-2023 End: 03-08-2023 Patient encounter procedure [facility] Start: 03-01-2023 End: 03-01-2023 Patient encounter procedure 03/01/2023 6:00 PM EDT Appointment [facility] [address] [place] [address] Moni Boyce MD [address] [place] [phone] Mert Crawford [facility] Start: 02-22-2023 End: 02-22-2023 Patient encounter procedure 02/22/2023 6:00 PM EDT Appointment [facility] [address] [place] [address] Moni Boyce MD [address] [place] [phone] Mert Crawford [facility] Start: 02-16-2023 End: 02-17-2024 ETHYL GLUCURONIDE SCREEN, URINE [facility] Comment on above: Expected: 02/16/2023 (Approximate), Expires: 02/17/2024 Once for 1 Occurrenc es starting 02/16/2023 until 02/16/2023, 1 completed Start: 02-16-2023 End: 02-17-2024 Fentanyl, urine [facility] Comment on above: Expected: 02/16/2023 (Approximate), Expires: 02/17/2024 Once for 1 Occurrenc es starting 02/16/2023 until 02/16/2023, 1 completed Start: 02-16-2023 End: 02-17-2024 IGNATIA DRUG SCREEN [facility] Work Phone: Comment on above: Expected: 02/16/2023 (Approximate), Expires: 02/17/2024 Once for 1 Occurrenc es starting 02/16/2023 until 02/16/2023, 1 completed Start: 02-15-2023 End: 02-15-2023 Patient encounter procedure 02/15/2023 6:00 PM EDT Appointment [facility] [address] [place] [phone] Moni Boyce MD [address] [place] [phone] Mert Crawford [facility] Start: 02-13-2023 End: 02-13-2023 Patient encounter procedure 02/13/2023 5:30 PM EDT Appointment [facility] [address] [place] [address] Moni Boyce MD [address] [place] [phone] Mert Crawford [facility] Start: 02-09-2023 End: 02-09-2023 Patient encounter procedure 02/09/2023 5:30 PM EDT Appointment [facility] [address] [place] [address] Moni Boyce MD [address] [place] [phone] Mert Crawford [facility] Start: 02-08-2023 End: 02-08-2023 Patient encounter procedure 02/08/2023 6:00 PM EDT Appointment [facility] [address] [place] [phone] Moni Boyce MD [address] [place] [phone] Mert Crawford [facility] Start: 02-07-2023 End: 02-07-2023 Patient encounter procedure 02/07/2023 5:30 PM EDT Appointment [facility] [address] [place] [phone] Moni Boyce MD [address] [place] [phone] Mert Crawford [facility] Start: 02-06-2023 End: 02-06-2023 Patient encounter procedure 02/06/2023 5:30 PM EDT Appointment [facility] [address] [place] [phone] Moni Boyce MD [address] [place] [phone] Mert Crawford [facility] Start: 02-02-2023 End: 02-02-2023 Patient encounter procedure 02/02/2023 5:30 PM EDT Appointment [facility] [address] [place] [address], [place] [address] Moni Boyce MD [address] [place] [phone] Mert Crawford [facility] Start: 02-01-2023 End: 02-01-2023 Patient encounter procedure 02/01/2023 5:30 PM EDT Appointment [facility] [address] [place] [phone] Moni Boyce MD [address] [place] [phone] Mert Crawford [facility] Start: 01-31-2023 End: 01-31-2023 Patient encounter procedure 01/31/2023 5:30 PM EDT Appointment [facility] [address] [place] [address], [place] [phone] Moni Boyce MD [address] [place] [phone] Mert Crawford [facility] Start: 01-27-2023 COVID-19 Vaccine ( season) COVID-19 Vaccine ( season) [facility] Start: 01-27-2023 Influenza vaccination Influenza Vacc ine (#1) [facility] Start: 01-26-2023 End: 01-26-2023 Patient encounter procedure 01/26/2023 5:30 PM EDT Appointment [facility] [address] [place] [phone] Moni Boyce MD [address] [place] [phone] Mert Crawford [facility] Start: 01-19-2023 End: 01-19-2023 Patient encounter procedure 01/19/2023 5:30 PM EDT Appointment [facility] [address] [place] [phone] Mert Crwaford [facility] Start: 01-17-2023 End: 01-17-2023 Patient encounter procedure [facility] Start: 01-16-2023 End: 01-16-2023 Patient encounter procedure 01/16/2023 5:30 PM EDT Appointment [facility] [address] [place] [phone] Mert Crawford [facility] Start: 01-12-2023 End: 01-12-2023 Patient encounter procedure 01/12/2023 5:30 PM EDT Appointment [facility] [address] [place] [phone] Mert Crawford [facility] Start: 01-10-2023 End: 01-10-2023 Patient encounter procedure 01/10/2023 5:30 PM EDT Appointment [facility] [address] [place] [phone] Mert Crawford [facility] Start: 01-09-2023 End: 01-09-2023 Patient encounter procedure 01/09/2023 5:30 PM EDT Appointment [facility] [address] [place] [address] Mert Crawford [facility] Start: 01-05-2023 End: 01-05-2023 Patient encounter procedure 01/05/2023 5:30 PM EDT Appointment [facility] [address] [place] [address] Mert Crawford [facility] Start: 01-03-2023 End: 01-03-2023 Patient encounter procedure 01/03/2023 5:30 PM EDT Appointment [facility] [address] [place] [address] Mert Crawford [facility] Start: 01-02-2023 End: 01-02-2023 Patient encounter procedure 01/02/2023 5:30 PM EDT App[facility]ment [facility] [address] [facility] [address] Mert Crawford [facility] Start: 12-29-2022 End: 12-29-2022 Patient encounter procedure 12/29/2022 5:30 PM EDT Appointment [facility] [address] [place] [address] Mert Crawford [facility] Start: 12-27-2022 End: 12-27-2022 Patient encounter procedure 12/27/2022 5:30 PM EDT Appointment [facility] [address] [place] [address] Mert Crawford [facility] Start: 12-26-2022 End: 12-26-2022 Patient encounter procedure 12/26/2022 5:30 PM EDT Appointment [facility] [address] [place] [address] Mert Crawford [facility] Start: 2022 End: 2022 Patient encounter procedure 2022 5:30 PM EDT Appointment [facility] [address] [place] [address] Mert Crawford [facility] Start: 12-20-2022 End: 12-20-2022 Patient encounter procedure 12/20/2022 5:30 PM EDT Appointment [facility] [address] [place] [address] Mert Crawford [facility] Start: 12-19-2022 End: 12-19-2022 Patient encounter procedure 12/19/2022 5:30 PM EDT Appointment [facility] [address] [place] [address] Mert Crawford [facility] Start: 12-15-2022 End: 12-15-2022 Patient encounter procedure 12/15/2022 5:30 PM EDT Appointment [facility] [address] [place] [id number] Mert Crawford [facility] Start: 12-13-2022 End: 12-13-2022 Patient encounter procedure 12/13/2022 5:30 PM EDT Appointment [facility] [address] [place] [id number] Mert Crawford [facility] Start: 12-12-2022 End: 12-12-2022 Patient encounter procedure [facility] Start: 01-27-2022 Influenza vaccination Flu vacc ine (Season Ended) [facility] Start: 10-14-2021 COVID-19 Vaccine (3 - Booster for Pfizer series) COVID-19 Vaccine (3 - Booster for Pfizer series) [facility] Start: 10-14-2021 COVID-19 Vaccine (3 - Pfizer series) COVID-19 Vaccine (3 - Pfizer series) [facility] Start: 1997 DTaP/Tdap/Td vaccine (1 - Tdap) DTaP/Tdap/Td vaccine (1 - Tdap) [facility] Start: 1997 DTaP/Tdap/Td Vaccine s (1 - Tdap) DTaP/Tdap/Td Vaccines (1 - Tdap) [facility] Start: 1997 Hepatitis A Vaccines (1 of 2 - Risk 2-dose series) Hepatitis A Vaccines (1 of 2 - Risk 2-dose series) [facility] Start: 1997 Hepatitis B Vaccines (1 of 3 - 19+ 3-dose series) Hepatitis B Vaccines (1 of 3 - 19+ 3-dose series) [facility] Start: 1997 Pneumococcal Vaccine : Pediatrics (0 to 5 Years) and At-Risk Patients (6 to 49 Years) (1 of 2 - PCV) Pneumococcal Vaccine: Pediatrics (0 to 5 Years) and At-Risk Patients (6 to 49 Years) (1 of 2 - PCV) [facility] Start: 1996 Diabetes mellitus screening Diabetes Screening [facility] Start: 1996 Hepatitis C screening Hepatitis C Sc reening [facility] Start: 1984 Pneumococcal Vaccine : Pediatrics (0 to 5 Years) and At-Risk Patients (6 to 64 Years) (1 - PCV) Pneumococcal Vaccine: Pediatrics (0 to 5 Years) and At-Risk Patients (6 to 64 Years) (1 - PCV) [facility] Start: 12-23-1983 COVID-19 Vaccine (1) COVID-19 Vaccin e (1) [facility] Start: 12-23-1979 MMR Vaccines (1 of 1 - Standard series) MMR Vaccines (1 of 1 - Standard series) [facility] Start: 1978 Hepatitis B Vaccines (1 of 3 - 3-dose series) Hepatitis B Vaccines (1 of 3 - 3-dose series) [facility] Start: 1978 HIV screening HIV Screening [facility] Start: 1978 Lipid panel Lipid Panel [facility] Start: 1978 Screening for malign ant neoplasm of colon [facility] BUPRENORPHINE SCREEN BUPRENORPHI NE SCREEN Lab Routine Mild cannabis use disorder Severe opioid use disorder (HCC) 02/01/2023 7:30 PM EDT [facility] ETHYL GLUCURONIDE SCREEN, URINE ETHYL GLUCURONIDE SCREEN, URINE Lab Routine Severe opioid use disorder (HCC) Mild cannabis use disorder 01/05/2023 7:30 PM EDT [facility] Fentanyl, urine Fentanyl, urine Lab Routine Severe opioid use disorder (HCC) Mild cannabis use disorder 01/05/2023 7:30 PM EDT [facility] Fentanyl, urine Fentanyl, urine Lab Routine Mild cannabis use disorder Severe opioid use disorder (HCC) 02/01/2023 7:30 PM EDT [facility] Fentanyl, urine Fentanyl, urine Lab Routine Severe opioid use disorder (HCC) Mild cannabis use disorder 02/07/2023 7:13 AM EDT [facility] IGNATIA DRUG SCREEN IGNATIA DRUG SCREEN Lab Routine Severe opioid use disorder (HCC) Mild cannabis use disorder 01/05/2023 7:30 PM EDT [facility] Work Phone: IGNATIA DRUG SCREEN IGNATIA DRUG SCREEN Lab Routine Mild cannabis use disorder Severe opioid use disorder (HCC) 02/01/2023 7:30 PM EDT [facility] Work Phone: IGNATIA DRUG SCREEN IGNATIA DRUG SCREEN Lab Routine Severe opioid use disorder (HCC) Mild cannabis use disorder 02/07/2023 7:13 AM EDT [facility] Work Phone: End: 06-13-2024 MEDICATION ASSISTED TREATMENT PANEL MEDICATION ASSISTED TREATMENT PANEL Lab Routine Severe opioid use disorder (HCC) Once (Lab) for 1 Occurrences starting 06/13/2024 until 06/13/2024 [employer] Work Phone: Comment on above: Once (Lab) for 1 Occ urrences starting 06/13/2024 until 06/13/2024 Payers Date Payer Category Payer Medicaid [facility]MY CERVANTES ODM [id number] 2022 Unknown [employer] [id number] 2022-Present [address] [place] [address] Commercial [id number] Unknown [id number] Unknown [id number] Social History Date Type Detail Facility Start: 06-05-2017 End: 06-11-2024 Tobacco smoking status NHIS Smokes tobacco daily [facility] Work Phone: History of tobacco use Cigarette Smoker S [facility] Work Phone: Start: 06-05-2017 End: 06-11-2024 Cigarettes smoked current (pack per day) - Reported 1 [facility] Work Phone: Start: 06-05-2017 End: 06-11-2024 Tobacco use and exposure Smokeless tobacco non-user [facility] Work Phone: Start: 10-31-2021 End: 06-11-2024 Alcohol intake Current drinker of alcohol (finding) [facility] Work Phone: Start: 10-31-2021 History SDOH Alcohol Frequency 3 [facility] Work Phone: Start: 10-31-2021 History SDOH Alcohol Std Drinks 1 [facility] Work Phone: Start: 10-31-2021 History SDOH Alcohol Binge 2 [facility] Work Phone: Start: 06-05-2017 History SDOH Alcohol Comment daily [facility] Work Phone: Start: 1980 Sex Assigned At Not on file [facility] Work Phone: Start: 10-21-2021 End: 01-05-2023 Exposure to SARS-CoV-2 (event) Not sure [facility] Work Phone: Start: 12-05-2022 End: 06-11-2024 Social connection and isolation panel [facility] Do you belong to any clubs or organizations such as nondenominational groups, unions, fraternal or athletic groups, or school groups? Yes [facility] Are you now , , , , never or living with a partner? Never [facility] How often to you hav e a drink containing alcohol? 2-4 times a month [facility] How many standard dr inks containing alcohol do you have on a typical day? 1 or 2 [facility] How often do you hav e 6 or more drinks on 1 occasion? Never [facility] How hard is it for y ou to pay for the very basics like food, housing, medical care, and heating Not hard at all [facility] (I/We) worried wheth er (my/our) food would run out before (I/we) got money to buy more. Never true [facility] At any time in the p ast 12 months, were you homeless or living in fdc [including now]? No [facility] Start: 1980 Sex Assigned At Male S [facility] Start: 11-30-2022 Gender identity Identifies as male gender (finding) [facility] How often to you hav e a drink containing alcohol? Monthly or less [facility] Start: 12-27-2021 Sex Male (finding) [facility] Goals Date Patient Goal Desired Activity /State Personal health goal Comment on above: Formatting of this n ote might be different from the original. I need to stop using drugs and get my daughter back Personal health goal Comment on above: Formatting of this n ote might be different from the original. I've done everything but nothing at all. Clinical Notes 06-07-2021 to 08-29-2024 Care Coordination - [facility] - 08/08/2024 5:30 PM EDTCare Coordination - [facility] - 08/08/2024 5:30 PM EDTCare Coordination - [facility] - 08/08/2024 5:30 PM EDT Note Date & Type Note Facility 08-29-2024 Note Program: [facility] Intensive Outpatient Program Current Service/Group: Intensive Outpatient Program Discharge Type: Completed Goals - discharged to a lower level of care Date of Last SessionAttended: 08/29/2024 Number of Sessions attended: 18 Primary Diagnosis(es) at Admission: F11.20 Primary Diagnosis(es) at Transfer/Discharge: F11.20 Treatment Outcome Measures: PHQ-9 PHQ-9 pre-score: 1 PHQ-9 post-score: 0 ELYSSA-7 ELYSSA-7 pre-score: 1 ELYSSA-7 post-score: 0 Updated ASAM Criteria: ASAM CRITERIA/SEVERITY ANALYSIS 0 - Non-issue/low risk 1 - Mild diffi culty in functioning 2 - Moderate diffi culty in functioning 3 - Serious issue or diffi culty coping/in or near imminent danger 4 - Severe - indicating an imminent danger concern SUMMARY/JUSTIFICATION FOR LEVEL OF CARE 0- Dimension 1: Acute Intoxication and/or Withdrawal Potential Rationale: Denied use for 5 months 0- Dimension 2: Biomedical Conditions and Complications, Rationale: Denied chronic medical issues 1- Dimension 3: Emotional, Behavioral, or Cognitive Conditions and Complications, Rationale: Pt denied MH symptoms 1- Dimension 4: Readiness to Change. Rationale: Patient finished IOP and agreeable to RPG 1- Dimension 5: Relapse, Continued Use, or Continued Problem Potential, Rationale: Hx of relapse 1- Dimension 6: Recovery/Living Environment, Rationale: Pt working on getting his own apartment and his GF went to detox Comments: NA Patient At Home Medication: Prior to Admission medications Not on File Complete the Following for TRANSFER/CHANGE IN LEVEL OF CARE within [facility] Program: Internal Referral to next Level of Care: Relapse Prevention Group Brief Summary of Treatment Provided and Follow-Up Transfer Recommendation(s): Patient completed 18 sessions of Evening IOP. Patient reported one relapse on alcohol during his time in IOP but reports sobriety from opiates for 5 months. Patient agreeable to RPG starting 09/04/2024 Therapist/Nurse: Jt Ramirez Schedule: Wednesdays at 5:30 PM Scheduled Start Date: 09/04/2024 Additional Comments (optional): Use the coping skills you learned in treatment to manage symptoms/relationships, Use mindfulness activities to assist with relieving triggers/symptoms, and Maintain medication compliance [facility] 08-27-2024 Note Patient reviewed alyce atment plan and reported continued progress. Pt stated that all goals are still viable and no changes are required or requested. Pt completed PHQ-9 (0) and ELYSSA-7 (0). Scores indicate improvement. [facility] 08-08-2024 Miscellaneous Notes Patient called and informed me that he would not be in group 08/08/2024. documented in this encounter [facility] 08-08-2024 Note Formatting of this n ote might be different from the original. Patient called and informed me that he would not be in group 08/08/2024. [facility] 08-08-2024 Note Formatting of this n ote might be different from the original. Patient called and informed me that he would not be in group 08/08/2024. [facility] 08-01-2024 Group counseling note [facility] Group Therapy Documentation Program: Addiction Medicine Intensive Outpatient Program Group Type: Addiction IOP Group Date: 08/01/2024 Facilitators: Catherine Perez Department: [facility] Group No: 1 Start Time: 5:30 PM No. of Participants: 4 End Time: 6:20 PM Group Topic: Check Ins Summary of Group Activity: Group members shared how they have been since last being in group. Patient's level of participation in group process: Engaged in group process and Interactive with other group members Therapeutic Intervention utilized with Patient: Building rapport and engagement and Empathic listening Patient's Response to Intervention: Patient reported an uneventful day. Patient denied cravings or urges to use. Mental Status Exam: Affect and Mood: appropriate Behavior: Pleasant Cognition: Oriented X4 Additional comments: NA Progress Towards Goals: Moderate Next Step(s): Continue with current services Additional Comments (optional): Group No: 2 Start Time: 6:30 PM No. 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 Patient's level of participation in group process: Engaged in group process and Interactive with other group members Therapeutic Intervention utilized with Patient: Building rapport and engagement, Empathic listening, and Psychoeducation Patient's Response to Intervention: Patient appeared attentive to the film. Mental Status Exam: Affect and Mood: appropriate Behavior: Pleasant Cognition: Oriented X4 Additional comments: NA Progress Towards Goals: Moderate Next Step(s): Continue with current services Additional Comments (optional): Group No: 3 Start Time: 7:30 PM No. of Participants: 4 End Time: 8:20 PM Group Topic: Conclusion of Unguarded Summary of Group Activity: Group members finished watching the film. Given an opportunity to share takeaways. Patient's level of participation in group process: Engaged in group process and Interactive with other group members Therapeutic Intervention utilized with Patient: Building rapport and engagement and Empathic listening Patient's Response to Intervention: Patient shared that they enjoyed the film. Mental Status Exam: Affect and Mood: appropriate Behavior: Pleasant Cognition: Oriented X4 Additional comments: NA Progress Towards Goals: Moderate Next Step(s): Continue with current services Additional Comments (optional): [facility] 08-01-2024 Miscellaneous Notes [facility] Group Therapy Documentation Program: Addiction Medicine Intensive Outpatient Program Group Type: Addiction IOP Group Date: 08/01/2024 Facilitators: Catherine Perez Department: [facility] Addiction IOP Group No: 1 Start Time: 5:30 PM No. of Participants: 4 End Time: 6:20 PM Group Topic: Check Ins Summary of Group Activity: Group members shared how they have been since last being in group. Patient's level of participation in group process: Engaged in group process and Interactive with other group members Therapeutic Intervention utilized with Patient: Building rapport and engagement and Empathic listening Patient's Response to Intervention: Patient reported an uneventful day. Patient denied cravings or urges to use. Mental Status Exam: Affect and Mood: appropriate Behavior: Pleasant Cognition: Oriented X4 Additional comments: NA Progress Towards Goals: Moderate Next Step(s): Continue with current services Additional Comments (optional): Group No: 2 Start Time: 6:30 PM No. 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 Patient's level of participation in group process: Engaged in group process and Interactive with other group members Therapeutic Intervention utilized with Patient: Building rapport and engagement, Empathic listening, and Psychoeducation Patient's Response to Intervention: Patient appeared attentive to the film. Mental Status Exam: Affect and Mood: appropriate Behavior: Pleasant Cognition: Oriented X4 Additional comments: NA Progress Towards Goals: Moderate Next Step(s): Continue with current services Additional Comments (optional): Group No: 3 Start Time: 7:30 PM No. of Participants: 4 End Time: 8:20 PM Group Topic: Conclusion of Unguarded Summary of Group Activity: Group members finished watching the film. Given an opportunity to share takeaways. Patient's level of participation in group process: Engaged in group process and Interactive with other group members Therapeutic Intervention utilized with Patient: Building rapport and engagement and Empathic listening Patient's Response to Intervention: Patient shared that they enjoyed the film. Mental Status Exam: Affect and Mood: appropriate Behavior: Pleasant Cognition: Oriented X4 Additional comments: NA Progress Towards Goals: Moderate Next Step(s): Continue with current services Additional Comments (optional): documented in this encounter [facility] 07-18-2024 Group counseling note [facility] Group Therapy Documentation Program: Addiction Medicine Intensive Outpatient Program Group Type: Addiction IOP Group Date: 07/18/2024 Facilitators: Catherine Perez Department: [facility] Addiction IOP Group No: 1 Start Time: 5:30 PM No. of Participants: 4 End Time: 6:20 PM Group Topic: Check Ins Summary of Group Activity: Patient shared events from the past day including any cravings or triggers. Patient's level of participation in group process: Engaged in group process Therapeutic Intervention utilized with Patient: Building rapport and engagement and Empathic listening Patient's Response to Intervention: Patient reported that he got into a fight with his girlfriend on the way to group. Patient denied any cravings. Patient continues to remark that he was not using fentanyl to get high but instead was using it to not get sick. Mental Status Exam: Affect and Mood: aggitated Behavior: Cooperative Cognition: Oriented X4 Additional comments: NA Progress Towards Goals: Moderate Next Step(s): Continue with current services Additional Comments (optional): Group No: 2 Start Time: 6:30 PM No. of Participants: 4 End Time: 7:20 PM Group Topic: Marlon Persaud Humor in Recovery Summary of Group Activity: Group watched a video which explained the importance of humor in recovery. Patient's level of participation in group process: Engaged in group process Therapeutic Intervention utilized with Patient: Psychoeducation Patient's Response to Intervention: Patient appeared attentive to the video. Mental Status Exam: Affect and Mood: appropriate Behavior: Cooperative Cognition: Oriented X4 Additional comments: NA Progress Towards Goals: Moderate Next Step(s): Continue with current services Additional Comments (optional): Group No: 3 Start Time: 7:30 PM No. of Participants: 4 End Time: 8:20 PM Group Topic: Discussion of Video Summary of Group Activity: Group members shared what they learned or valued from the video. Patient's level of participation in group process: Engaged in group process Therapeutic Intervention utilized with Patient: Building rapport and engagement, Empathic listening, and Psychoeducation Patient's Response to Intervention: Patient shared that he found the video enjoyable. Mental Status Exam: Affect and Mood: appropriate Behavior: Cooperative Cognition: Oriented X4 Additional comments: NA Progress Towards Goals: Moderate Next Step(s): Continue with current services Additional Comments (optional): NA [facility] 07-18-2024 Miscellaneous Notes [facility] Group Therapy Documentation Program: Addiction Medicine Intensive Outpatient Program Group Type: Addiction IOP Group Date: 07/18/2024 Facilitators: Catherine Perez Department: [facility] Addiction IOP Group No: 1 Start Time: 5:30 PM No. of Participants: 4 End Time: 6:20 PM Group Topic: Check Ins Summary of Group Activity: Patient shared events from the past day including any cravings or triggers. Patient's level of participation in group process: Engaged in group process Therapeutic Intervention utilized with Patient: Building rapport and engagement and Empathic listening Patient's Response to Intervention: Patient reported that he got into a fight with his girlfriend on the way to group. Patient denied any cravings. Patient continues to remark that he was not using fentanyl to get high but instead was using it to not get sick. Mental Status Exam: Affect and Mood: aggitated Behavior: Cooperative Cognition: Oriented X4 Additional comments: NA Progress Towards Goals: Moderate Next Step(s): Continue with current services Additional Comments (optional): Group No: 2 Start Time: 6:30 PM No. of Participants: 4 End Time: 7:20 PM Group Topic: Marlon Persaud Humor in Recovery Summary of Group Activity: Group watched a video which explained the importance of humor in recovery. Patient's level of participation in group process: Engaged in group process Therapeutic Intervention utilized with Patient: Psychoeducation Patient's Response to Intervention: Patient appeared attentive to the video. Mental Status Exam: Affect and Mood: appropriate Behavior: Cooperative Cognition: Oriented X4 Additional comments: NA Progress Towards Goals: Moderate Next Step(s): Continue with current services Additional Comments (optional): Group No: 3 Start Time: 7:30 PM No. of Participants: 4 End Time: 8:20 PM Group Topic: Discussion of Video Summary of Group Activity: Group members shared what they learned or valued from the video. Patient's level of participation in group process: Engaged in group process Therapeutic Intervention utilized with Patient: Building rapport and engagement, Empathic listening, and Psychoeducation Patient's Response to Intervention: Patient shared that he found the video enjoyable. Mental Status Exam: Affect and Mood: appropriate Behavior: Cooperative Cognition: Oriented X4 Additional comments: NA Progress Towards Goals: Moderate Next Step(s): Continue with current services Additional Comments (optional): NA documented in this encounter [facility] 07-15-2024 Group counseling note [facility] Group Therapy Documentation Program: Addiction Medicine Intensive Outpatient Program Group Type: Addiction IOP Group Date: 07/15/2024 Facilitators: NICOLE Rowland Department: [facility] Addiction IOP Group No: 1 Start Time: 5:30 PM No. of Participants: 5 End Time: 6:20 PM Group Topic: Check-in Summary of Group Activity: Group members discussed their weekends and any stressors or successes they encountered. They discussed any triggers or cravings they experienced; shared how they spent their down time, and what they did for their recovery. Patient's level of participation in group process: Interactive with other group members Therapeutic Intervention utilized with Patient: Building rapport and engagement and Motivational interviewing techniques Patient's Response to Intervention: PT reported he really liked the doctor and that is why he returned to group. Mental Status Exam: Affect and Mood: appropriate Behavior: Cooperative Cognition: Oriented X4 Additional comments: none Progress Towards Goals: Moderate Next Step(s): Continue with current services Additional Comments (optional): Group No: 2 Start Time: 6:30 PM No. of Participants: 5 End Time: 7:20 PM Group Topic: Self care Summary of Group Activity: Discussion came from check-in. Group members discussed concerns over sugar cravings, snacking and weight gain. Discussed healthy eating and exercise. Discussed getting support from loved ones. Patient's level of participation in group process: Interactive with other group members Therapeutic Intervention utilized with Patient: Building rapport and engagement, Psychoeducation, and Motivational interviewing techniques Patient's Response to Intervention: Pt participated in group discussion with limited information regarding his personal experience. Mental Status Exam: Affect and Mood: appropriate Behavior: Cooperative Cognition: Oriented X4 Additional comments: none Progress Towards Goals: Moderate Next Step(s): Continue with current services Additional Comments (optional): Group No: 3 Start Time: 7:30 PM No. of Participants: 5 End Time: 8:20 PM Group Topic: Farewells Summary of Group Activity: Group discussed relapse prevention strategies and discussed farewells with completing group member. Patient's level of participation in group process: Interactive with other group members Therapeutic Intervention utilized with Patient: Building rapport and engagement, Empathic listening, and Motivational interviewing techniques Patient's Response to Intervention: Pt participated in group farewells. Mental Status Exam: Affect and Mood: appropriate Behavior: Cooperative Cognition: Oriented X4 Additional comments: none Progress Towards Goals: Moderate Next Step(s): Continue with current services Additional Comments (optional): [facility] 07-15-2024 Miscellaneous Notes Outpatient Behavioral Health Services Group Therapy Documentation Program: Addiction Medicine Intensive Outpatient Program Group Type: Addiction IOP Group Date: 07/15/2024 Facilitators: NICOLE Rowland Department: [facility] Addiction IOP Group No: 1 Start Time: 5:30 PM No. of Participants: 5 End Time: 6:20 PM Group Topic: Check-in Summary of Group Activity: Group members discussed their weekends and any stressors or successes they encountered. They discussed any triggers or cravings they experienced; shared how they spent their down time, and what they did for their recovery. Patient's level of participation in group process: Interactive with other group members Therapeutic Intervention utilized with Patient: Building rapport and engagement and Motivational interviewing techniques Patient's Response to Intervention: PT reported he really liked the doctor and that is why he returned to group. Mental Status Exam: Affect and Mood: appropriate Behavior: Cooperative Cognition: Oriented X4 Additional comments: none Progress Towards Goals: Moderate Next Step(s): Continue with current services Additional Comments (optional): Group No: 2 Start Time: 6:30 PM No. of Participants: 5 End Time: 7:20 PM Group Topic: Self care Summary of Group Activity: Discussion came from check-in. Group members discussed concerns over sugar cravings, snacking and weight gain. Discussed healthy eating and exercise. Discussed getting support from loved ones. Patient's level of participation in group process: Interactive with other group members Therapeutic Intervention utilized with Patient: Building rapport and engagement, Psychoeducation, and Motivational interviewing techniques Patient's Response to Intervention: Pt participated in group discussion with limited information regarding his personal experience. Mental Status Exam: Affect and Mood: appropriate Behavior: Cooperative Cognition: Oriented X4 Additional comments: none Progress Towards Goals: Moderate Next Step(s): Continue with current services Additional Comments (optional): Group No: 3 Start Time: 7:30 PM No. of Participants: 5 End Time: 8:20 PM Group Topic: Farewells Summary of Group Activity: Group discussed relapse prevention strategies and discussed farewells with completing group member. Patient's level of participation in group process: Interactive with other group members Therapeutic Intervention utilized with Patient: Building rapport and engagement, Empathic listening, and Motivational interviewing techniques Patient's Response to Intervention: Pt participated in group farewells. Mental Status Exam: Affect and Mood: appropriate Behavior: Cooperative Cognition: Oriented X4 Additional comments: none Progress Towards Goals: Moderate Next Step(s): Continue with current services Additional Comments (optional): documented in this encounter [facility] 07-03-2024 History of Presen t illness Narrative No Call No Show. This is the 3rd no show to physician appointment for IOP certification. Cannot attend IOP until seen by physician. Patient will need to call and schedule an appointment. documented in this encounter [facility] 06-25-2024 History of Presen t illness Narrative No Call No Show - Cannot return to [facility] until meets with me for certification. documented in this encounter [facility] 06-18-2024 Group counseling note Outpatient Behavioral Health Services Group Therapy Documentation Program: Addiction Medicine Intensive Outpatient Program Group Type: Addiction IOP Group Date: 06/18/2024 Facilitators: Jt Ramirez [facility] Department: [facility] Addiction IOP Group No: 1 Start Time: 9:00 AM No. of Participants: 3 End Time: 12:00 PM Group Topic: check in Summary of Group Activity: Pt report on events occurring since the last session. Patient's level of participation in group process: Engaged in group process and Interactive with other group members Therapeutic Intervention utilized with Patient: Empathic listening, Psychoeducation, and Modeling/skills training Patient's Response to Intervention: Pt reports no thoughts or cravings to use drugs. Pt reports no issues with family or others. Mental Status Exam: Affect and Mood: appropriate Behavior: Cooperative and Engaging Cognition: Intact Additional comments: n/a Progress Towards Goals: Minimal Next Step(s): Continue with current services Additional Comments (optional): Group No: 2 Start Time: 9:00 AM No. of Participants: 3 End Time: 12:00 PM Group Topic: sober support groups and recovery Summary of Group Activity: Led discussion on roadblocks to participating in sober support groups. Patient's level of participation in group process: Engaged in group process and Interactive with other group members Therapeutic Intervention utilized with Patient: Cognitive Behavioral Therapy (CBT), Psychoeducation, and Motivational interviewing techniques Patient's Response to Intervention: Pt engaged in the group discussion offering his thoughts on participating in sober support groups. Pt presents with black and white thinking. He also presents with the inability to maintain a thought through to the end. Discussed with the Pt his thoughts and feelings that are interfering with his sober support attendance to help him gain clarity. Mental Status Exam: Affect and Mood: appropriate Behavior: Cooperative and Engaging Cognition: Intact Additional comments: n/a Progress Towards Goals: Minimal Next Step(s): Continue with current services Additional Comments (optional): Group No: 3 Start Time: 9:00 AM No. of Participants: 3 End Time: 12:00 PM Group Topic: discussed addiction labels in ongoing sobriety. Summary of Group Activity: Discussed the impact of labels in ongoing sobriety. Patient's level of participation in group process: Engaged in group process and Interactive with other group members Therapeutic Intervention utilized with Patient: Psychoeducation and Modeling/skills training Patient's Response to Intervention: Pt was attentive as the discussion looked at the process explored words use that carry a negative feeling or emotional response concerning sober support groups. Worked with the Pt to refarme his definition or to change the word used to improve his response to sober support groups, Mental Status Exam: Affect and Mood: appropriate Behavior: Pleasant, Cooperative, and Engaging Cognition: Intact Additional comments: n/a Progress Towards Goals: Minimal Next Step(s): Continue with current services Additional Comments (optional): [facility] 06-18-2024 Miscellaneous Notes Outpatient Behavioral Health Services Group Therapy Documentation Program: Addiction Medicine Intensive Outpatient Program Group Type: Addiction IOP Group Date: 06/18/2024 Facilitators: NICOLE Hood Department: [facility] Addiction IOP Group No: 1 Start Time: 9:00 AM No. of Participants: 3 End Time: 12:00 PM Group Topic: check in Summary of Group Activity: Pt report on events occurring since the last session. Patient's level of participation in group process: Engaged in group process and Interactive with other group members Therapeutic Intervention utilized with Patient: Empathic listening, Psychoeducation, and Modeling/skills training Patient's Response to Intervention: Pt reports no thoughts or cravings to use drugs. Pt reports no issues with family or others. Mental Status Exam: Affect and Mood: appropriate Behavior: Cooperative and Engaging Cognition: Intact Additional comments: n/a Progress Towards Goals: Minimal Next Step(s): Continue with current services Additional Comments (optional): Group No: 2 Start Time: 9:00 AM No. of Participants: 3 End Time: 12:00 PM Group Topic: sober support groups and recovery Summary of Group Activity: Led discussion on roadblocks to participating in sober support groups. Patient's level of participation in group process: Engaged in group process and Interactive with other group members Therapeutic Intervention utilized with Patient: Cognitive Behavioral Therapy (CBT), Psychoeducation, and Motivational interviewing techniques Patient's Response to Intervention: Pt engaged in the group discussion offering his thoughts on participating in sober support groups. Pt presents with black and white thinking. He also presents with the inability to maintain a thought through to the end. Discussed with the Pt his thoughts and feelings that are interfering with his sober support attendance to help him gain clarity. Mental Status Exam: Affect and Mood: appropriate Behavior: Cooperative and Engaging Cognition: Intact Additional comments: n/a Progress Towards Goals: Minimal Next Step(s): Continue with current services Additional Comments (optional): Group No: 3 Start Time: 9:00 AM No. of Participants: 3 End Time: 12:00 PM Group Topic: discussed addiction labels in ongoing sobriety. Summary of Group Activity: Discussed the impact of labels in ongoing sobriety. Patient's level of participation in group process: Engaged in group process and Interactive with other group members Therapeutic Intervention utilized with Patient: Psychoeducation and Modeling/skills training Patient's Response to Intervention: Pt was attentive as the discussion looked at the process explored words use that carry a negative feeling or emotional response concerning sober support groups. Worked with the Pt to refarme his definition or to change the word used to improve his response to sober support groups, Mental Status Exam: Affect and Mood: appropriate Behavior: Pleasant, Cooperative, and Engaging Cognition: Intact Additional comments: n/a Progress Towards Goals: Minimal Next Step(s): Continue with current services Additional Comments (optional): documented in this encounter [facility] 06-13-2024 Group counseling note Outpatient Behavioral Health Services Group Therapy Documentation Program: Addiction Medicine Intensive Outpatient Program Group Type: Addiction IOP Group Date: 06/13/2024 Facilitators: NICOLE Hood Department: [facility] Addiction IOP Group No: 1 Start Time: 9:00 AM No. of Participants: 2 End Time: 12:00 PM Group Topic: check in Summary of Group Activity: pt report on events occurring since the last session. Patient's level of participation in group process: Engaged in group process and Interactive with other group members Therapeutic Intervention utilized with Patient: Building rapport and engagement, Psychoeducation, and Modeling/skills training Patient's Response to Intervention: Pt was able to introduce himself and to share his story with the group. Pt presents with excessive talking and needed to be redirected multiple times during the session. Mental Status Exam: Affect and Mood: anxious Behavior: Cooperative, Monopolizing, and Impulsive Cognition: Intact Additional comments: n/a Progress Towards Goals: Minimal Next Step(s): Continue with current services Additional Comments (optional): Group No: 2 Start Time: 9:00 AM No. of Participants: 2 End Time: 12:00 PM Group Topic: change plan worksheet Summary of Group Activity: Provided work sheet and led discussion. Patient's level of participation in group process: Engaged in group process and Interactive with other group members Therapeutic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 strategies. Pt reports how he feels today and evidence to back up what he shared in group. Pt shared updates in how he is setting healthy boundaries with individuals in his life. Pt actively listened and participated in the group discussion regarding drug refusal skills. Pt learned to utilize the following skills to assist him with drug refusal skills: Be firm, match the tone with your words Body posture should convey your stance using closed body language Eye contact Be honest Let the person know there are consequences to giving in With unexpected encounters, keep the conversation short or avoid the individual altogether. Progress Towards Goal(s): Moderate Additional Comments: Pt submitted a UDS today. Next Step: Continue with current services Patients Problems: Patient Active Problem List Diagnosis Severe opioid use disorder (HCC) Mild cannabis use disorder Name: Eric Villa Date of : 1980 MR: [id number] Mert Crawford [facility] 02-15-2023 Miscellaneous Notes Outpatient Behavioral Health Services Intensive Outpatient Program (IOP) Group Therapy - Session 1 Group Name: Relapse Prevention Summary: Patients learned drug refusal skills to assist with sobriety. Pt dicussed their progress with maintaining sobriety. Department: [facility] Addiction IOP Group Topic: Skill Building Group Date: 02/15/2023 Start Time: 6:00 PM End Time: 7:00 PM Number of Participants: 3 Mental Status Exam: Appearance: Appropriately dressed and groomed Mood: Euthymic Affect: Full and Appropriate Behavior: Pleasant, Cooperative, and Engaging Alertness: Alert Speech: Appropriate, Clear, and Normal pace Cognition: Intact and Oriented X4 Thought Process: Goal-directed Thought Content: No evidence of psychosis/delusions Level/Quality of Participation: active, attentive, cooperative, and supportive Interactions with others: gave feedback and supportive Interventions utilized were Cognitive Behavioral Therapy (CBT) and Psychoeducation Patient's Response to Intervention: Pt responded positively to the intervention strategies. Pt reports how he feels today and evidence to back up what he shared in group. Pt shared updates in how he is setting healthy boundaries with individuals in his life. Pt actively listened and participated in the group discussion regarding drug refusal skills. Pt learned to utilize the following skills to assist him with drug refusal skills: Be firm, match the tone with your words Body posture should convey your stance using closed body language Eye contact Be honest Let the person know there are consequences to giving in With unexpected encounters, keep the conversation short or avoid the individual altogether. Progress Towards Goal(s): Moderate Additional Comments: Pt submitted a UDS today. Next Step: Continue with current services Patients Problems: Patient Active Problem List Diagnosis Severe opioid use disorder (HCC) Mild cannabis use disorder Name: Eric Villa Date of : 1980 MR: [id number] Mert Crawford documented in this encounter [facility] 02-07-2023 History of Presen t illness Narrative Outpatient Behavioral Health Services Case Management/Care Coordination Note Date of Contact: 02/07/2023 Start Time: 1:23 PM End Time: 1:33 PM Duration: 10 Minutes Type of Contact: Telephone Patient's Identified Case Management/Care Coordination Need(s) addressed (select all that apply): ALEXANDRO Treatment Summary of Contact/Need at This Time: A worker from children services, Rhys Ramirez, called to inquire about the patient's compliance with treatment, recommendations, and the results of his UDS for the month of December,. [facility] informed the worker that the pt is compliant with treatment, his UDS for December 2022 were negative, and he is recommended to start the RPG on 02/15/2023 per FILEMON completed by the pt for this agency. Case Management Plan/Intervention: (select all that apply) Other: See Above Description of Case Management Plan/Intervention: See Above Note Any Anticipated Barriers: N/A Patient's response to Plan/Intervention (or, if applicable, outcome of Case Management collateral contact/referral): See Above Progress Towards Case Management Goal(s): [] None [] Minimal [] Moderate [] Significant [] Case Management Goal(s) Met Additional Comments: N/A documented in this encounter [facility] 02-07-2023 History of Presen t illness Narrative A Case Worked from children services called this [facility] and asked that the call is returned. Per FILEMON signed by the pt, [facility] called and left a message to return the call. documented in this encounter [facility] 01-31-2023 History of Presen t illness Narrative Called In Pt called to report that he may not be at group this evening (01/31/23) due to work. Pt states that he will try to attend. Pt indicates that if he is in group this evening he will be late. Pt states that he had a good weekend and no concerns with a lapse or relapse. documented in this encounter [facility] 01-23-2023 Group counseling note Outpatient Behavioral Health Services Intensive Outpatient Program (IOP) Group Therapy - Session 1 Group Name: Intensive Outpatient Program Summary: [facility] facilitated check-in discussion with patients regarding mindfulness activities engaged in outside of group, sobriety date, risky situations and how they coped, successes/goals met, as well as 12 step attendance. Discussed multiple life roles patients have in their life and how addiction has impacted their lives. Department: [facility] Addiction IOP Group Topic: Check-in Group Date: 01/23/2023 Start Time: 5:30 PM End Time: 6:20 PM Number of Participants: 3 Mental Status Exam: Appearance: Appropriately dressed and groomed Mood: Euthymic Affect: Full and Appropriate Behavior: Pleasant, Cooperative, and Engaging Alertness: Alert Speech: Appropriate, Clear, and Normal pace Cognition: Intact and Oriented X4 Thought Process: Goal-directed Thought Content: No evidence of psychosis/delusions Level/Quality of Participation: active, attentive, cooperative, and supportive Interactions with others: gave feedback and supportive Interventions utilized were Cognitive Behavioral Therapy (CBT) and Psychoeducation Patient's Response to Intervention: Pt responded positively to the intervention strategies. Pt reports that he had a good weekend. Pt reports that he worked over the weekend as well as did [employer] work for a friend. Pt reports a sobriety date of December 21, 2022. Pt shared a risky situation in which he was asked to take care of an associate's dog whom he used substances with in the past. Pt was able to manage the situation in a healthy way while maintaining sobriety. Pt reports no 12 step attendance yet, but plans to try the online groups. 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 Pt discussed how substance use had a negative impact within his family life. Pt also participated in the discussion on how substance use can have a negative impact on his career as well. Progress Towards Goal(s): Moderate Additional Comments: N/A Next Step: Continue with current services Patients Problems: Patient Active Problem List Diagnosis Severe opioid use disorder (HCC) Mild cannabis use disorder Name: Eric Villa Date of : 1980 MR: [id number] Mert Crawford [facility] 01-23-2023 Group counseling note Outpatient Behavioral Health Services Intensive Outpatient Program (IOP) Group Therapy - Session 2 Group Name: Intensive Outpatient Program Summary: [facility] educated patients on 5 communication styles: Passive, Passive-Aggressive, Aggressive, Assertive, and Manipulative Styles. Patients were able to identify their main communication style and develop an understanding of an assertive style as the healthiest option. Department: [facility] Addiction IOP Group Topic: Communication Group Date: 01/23/2023 Start Time: 6:30 PM End Time: 7:20 PM Number of Participants: 3 Mental Status Exam: Appearance: Appropriately dressed and groomed Mood: Euthymic Affect: Full and Appropriate Behavior: Pleasant, Cooperative, and Engaging Alertness: Alert Speech: Appropriate, Clear, and Normal pace Cognition: Intact and Oriented X4 Thought Process: Goal-directed Thought Content: No evidence of psychosis/delusions Level/Quality of Participation: active, attentive, cooperative, and supportive Interactions with others: gave feedback and supportive Interventions utilized were Cognitive Behavioral Therapy (CBT) and Psychoeducation Patient's Response to Intervention: Pt responded positively to the intervention strategies. Pt actively listened and participated in the group discussion regarding the 5 communication styles. Pt developed an understanding that the passive communicators tend to give in to what others want at their expense, aggressive style is demanding/hostile and insensitive to the rights of others, passive-aggressive tell people what they want to hear to avoid conflict, but may not follow-through, manipulative style use guilt to get their way, and assertive style is direct, honest respectful of others and attempts a win-win situation. Pt identified passive as his main communication style, but can be more assertive in the work place. Progress Towards Goal(s): Moderate Additional Comments: N/A Next Step: Continue with current services Patients Problems: Patient Active Problem List Diagnosis Severe opioid use disorder (HCC) Mild cannabis use disorder Name: Eric Villa Date of : 1980 MR: [id number] Mert Crawford [facility] 01-23-2023 Group counseling note Outpatient [facility]al [facility] Services Intensive Outpatient Program (IOP) Group Therapy - Session 3 Group Name: Intensive Outpatient Program Summary: Patients learned healthy tips for using an assertive communication style and practiced using I statements. Patients learned healthy communication strategies to de-escalate conflicts to reduce daily life stressors and assist with maintaining sobriety. Department: [facility] Addiction IOP Group Topic: Communication Group Date: 01/23/2023 Start Time: 7:30 PM End Time: 8:20 PM Number of Participants: 3 Mental Status Exam: Appearance: Appropriately dressed and groomed Mood: Euthymic Affect: Full and Appropriate Behavior: Pleasant, Cooperative, and Engaging Alertness: Alert Speech: Appropriate, Clear, and Normal pace Cognition: Intact and Oriented X4 Thought Process: Goal-directed Thought Content: No evidence of psychosis/delusions Level/Quality of Participation: active, attentive, cooperative, and supportive Interactions with others: gave feedback and supportive Interventions utilized were Cognitive Behavioral Therapy (CBT) and Psychoeducation Patient's Response to Intervention: Pt responded positively to the intervention strategies. Pt actively listened and participated in the group discussion about how to make I statements then practiced the skill in group. Pt learned to avoid absolutes, engage in appropriate eye contact, and label his feelings when using an assertive communication style. Pt learned to take deep breaths, paraphrase what others say, identify the problem, take a time out when needed, do not just walk away from someone without giving a reason for it to assist him with de-escalating conflicts to help resolve issues and avoid a lapse or relapse. Progress Towards Goal(s): Moderate Additional Comments: N/A Next Step: Continue with current services Patients Problems: Patient Active Problem List Diagnosis Severe opioid use disorder (HCC) Mild cannabis use disorder Name: Eric Villa Date of : 1980 MR: [id number] Mert Crawford [facility] 01-23-2023 Miscellaneous Notes Outpatient [facility] Breathalyzer and/or Urine Drug Screen Results Date Results Shared with Patient: 01/23/2023 Time: 6:30 PM Date of UDS Specimen Collection or Breathalyzer: 01/19/2023 Test Result(s) Shared with Patient: [x] Urine Drug Screen [] Breathalyzer Rationale for the Breathalyzer/UDS (please check all that apply): Monitoring Sobriety/Level of Use: Treatment Compliance: Behavioral Indicators: [] History of relapse [] Confirm MAT Compliance [] Observed change in level of functioning [] Reported Relapse [] Accountability/Random Screen [] Concerns with living/recovery environment [] Previous positive screen [] Recent Absences [] Suspicion of active use by patient [] Confirmation of Sobriety [] Lack of Program Compliance [] Patient Request [] Other (identify): Results shared with patient: [x] Negative UDS Results [] Negative Confirmation Test Results [] Positive UDS Result for: [] Positive Confirmation Test Result(s) for: [] Breathalyzer Result: Patient Response to Test Result(s): Pt is in agreement with the results. Plan/Intervention Based on Test Results: Pt will continue to attend the evening IOP group. [] Increase frequency of testing [] Linkage/referral for additional services [] Consideration for higher level of care [] Additional Information/education [] Consider change in treatment milieu [] Consideration for lower level of care [] Referral to MAT [] Skill development/reinforcement [] Request Confirmation Test [] Retest (note timeframe below) [] Other (identify): Description of Plan/Intervention: Pt will continue to attend the evening IOP group. Patient's Response to Plan/Intervention:Pt is in agreement with the plan. [facility] Intensive Outpatient Program (IOP) Group Therapy - Session 1 Group Name: Intensive Outpatient Program Summary: [facility] facilitated check-in discussion with patients regarding mindfulness activities engaged in outside of group, sobriety date, risky situations and how they coped, successes/goals met, as well as 12 step attendance. Discussed multiple life roles patients have in their life and how addiction has impacted their lives. Department: [facility] Addiction IOP Group Topic: Check-in Group Date: 01/23/2023 Start Time: 5:30 PM End Time: 6:20 PM Number of Participants: 3 Mental Status Exam: Appearance: Appropriately dressed and groomed Mood: Euthymic Affect: Full and Appropriate Behavior: Pleasant, Cooperative, and Engaging Alertness: Alert Speech: Appropriate, Clear, and Normal pace Cognition: Intact and Oriented X4 Thought Process: Goal-directed Thought Content: No evidence of psychosis/delusions Level/Quality of Participation: active, attentive, cooperative, and supportive Interactions with others: gave feedback and supportive Interventions utilized were Cognitive Behavioral Therapy (CBT) and Psychoeducation Patient's Response to Intervention: Pt responded positively to the intervention strategies. Pt reports that he had a good weekend. 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 Pt reports a sobriety date of December 21, 2022. Pt shared a risky situation in which he was asked to take care of an associate's dog whom he used substances with in the past. Pt was able to manage the situation in a healthy way while maintaining sobriety. Pt reports no 12 step attendance yet, but plans to try the online groups. 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 Pt discussed how substance use had a negative impact within his family life. Pt also participated in the discussion on how substance use can have a negative impact on his career as well. Progress Towards Goal(s): Moderate Additional Comments: N/A Next Step: Continue with current services Patients Problems: Patient Active Problem List Diagnosis Severe opioid use disorder (HCC) Mild cannabis use disorder Name: Eric Villa Date of : 1980 MR: [id number] Dustintyewilber Crawford [facility] Intensive Outpatient Program (IOP) Group Therapy - Session 2 Group Name: Intensive Outpatient Program Summary: [facility] educated patients on 5 communication styles: Passive, Passive-Aggressive, Aggressive, Assertive, and Manipulative Styles. Patients were able to identify their main communication style and develop an understanding of an assertive style as the healthiest option. Department: [facility] Addiction IOP Group Topic: Communication Group Date: 01/23/2023 Start Time: 6:30 PM End Time: 7:20 PM Number of Participants: 3 Mental Status Exam: Appearance: Appropriately dressed and groomed Mood: Euthymic Affect: Full and Appropriate Behavior: Pleasant, Cooperative, and Engaging Alertness: Alert Speech: Appropriate, Clear, and Normal pace Cognition: Intact and Oriented X4 Thought Process: Goal-directed Thought Content: No evidence of psychosis/delusions Level/Quality of Participation: active, attentive, cooperative, and supportive Interactions with others: gave feedback and supportive Interventions utilized were Cognitive Behavioral Therapy (CBT) and Psychoeducation Patient's Response to Intervention: Pt responded positively to the intervention strategies. Pt actively listened and participated in the group discussion regarding the 5 communication styles. Pt developed an understanding that the passive communicators tend to give in to what others want at their expense, aggressive style is demanding/hostile and insensitive to the rights of others, passive-aggressive tell people what they want to hear to avoid conflict, but may not follow-through, manipulative style use guilt to get their way, and assertive style is direct, honest respectful of others and attempts a win-win situation. Pt identified passive as his main communication style, but can be more assertive in the work place. Progress Towards Goal(s): Moderate Additional Comments: N/A Next Step: Continue with current services Patients Problems: Patient Active Problem List Diagnosis Severe opioid use disorder (HCC) Mild cannabis use disorder Name: Eric Villa Date of : 1980 MR: [id number] Dustinamee Crawford [facility] Intensive Outpatient Program (IOP) Group Therapy - Session 3 Group Name: Intensive Outpatient Program Summary: Patients learned healthy tips for using an assertive communication style and practiced using I statements. Patients learned healthy communication strategies to de-escalate conflicts to reduce daily life stressors and assist with maintaining sobriety. Department: [facility] Addiction IOP Group Topic: Communication Group Date: 01/23/2023 Start Time: 7:30 PM End Time: 8:20 PM Number of Participants: 3 Mental Status Exam: Appearance: Appropriately dressed and groomed Mood: Euthymic Affect: Full and Appropriate Behavior: Pleasant, Cooperative, and Engaging Alertness: Alert Speech: Appropriate, Clear, and Normal pace Cognition: Intact and Oriented X4 Thought Process: Goal-directed Thought Content: No evidence of psychosis/delusions Level/Quality of Participation: active, attentive, cooperative, and supportive Interactions with others: gave feedback and supportive Interventions utilized were Cognitive Behavioral Therapy (CBT) and Psychoeducation Patient's Response to Intervention: Pt responded positively to the intervention strategies. Pt actively listened and participated in the group discussion about how to make I statements then practiced the skill in group. Pt learned to avoid absolutes, engage in appropriate eye contact, and label his feelings when using an assertive communication style. Pt learned to take deep breaths, paraphrase what others say, identify the problem, take a time out when needed, do not just walk away from someone without giving a reason for it to assist him with de-escalating conflicts to help resolve issues and avoid a lapse or relapse. Progress Towards Goal(s): Moderate Additional Comments: N/A Next Step: Continue with current services Patients Problems: Patient Active Problem List Diagnosis Severe opioid use disorder (HCC) Mild cannabis use disorder Name: Eric Villa Date of : 1980 MR: [id number] Mert Crawford documented in this encounter [facility] 01-23-2023 Note Formatting of this n ote might be different from the original. [facility] Breathalyzer and/or Urine Drug Screen Results Date Results Shared with Patient: 01/23/2023 Time: 6:30 PM Date of UDS Specimen Collection or Breathalyzer: 01/19/2023 Test Result(s) Shared with Patient: [x] Urine Drug Screen [] Breathalyzer Rationale for the Breathalyzer/UDS (please check all that apply): Monitoring Sobriety/Level of Use: Treatment Compliance: Behavioral Indicators: [] History of relapse [] Confirm MAT Compliance [] Observed change in level of functioning [] Reported Relapse [] Accountability/Random Screen [] Concerns with living/recovery environment [] Previous positive screen [] Recent Absences [] Suspicion of active use by patient [] Confirmation of Sobriety [] Lack of Program Compliance [] Patient Request [] Other (identify): Results shared with patient: [x] Negative UDS Results [] Negative Confirmation Test Results [] Positive UDS Result for: [] Positive Confirmation Test Result(s) for: [] Breathalyzer Result: Patient Response to Test Result(s): Pt is in agreement with the results. Plan/Intervention Based on Test Results: Pt will continue to attend the evening IOP group. [] Increase frequency of testing [] Linkage/referral for additional services [] Consideration for higher level of care [] Additional Information/education [] Consider change in treatment milieu [] Consideration for lower level of care [] Referral to MAT [] Skill development/reinforcement [] Request Confirmation Test [] Retest (note timeframe below) [] Other (identify): Description of Plan/Intervention: Pt will continue to attend the evening IOP group. Patient's Response to Plan/Intervention:Pt is in agreement with the plan. [facility] 01-23-2023 Note Formatting of this n ote might be different from the original. [facility] Breathalyzer and/or Urine Drug Screen Results Date Results Shared with Patient: 01/23/2023 Time: 6:30 PM Date of UDS Specimen Collection or Breathalyzer: 01/19/2023 Test Result(s) Shared with Patient: [x] Urine Drug Screen [] Breathalyzer Rationale for the Breathalyzer/UDS (please check all that apply): Monitoring Sobriety/Level of Use: Treatment Compliance: Behavioral Indicators: [] History of relapse [] Confirm MAT Compliance [] Observed change in level of functioning [] Reported Relapse [] Accountability/Random Screen [] Concerns with living/recovery environment [] Previous positive screen [] Recent Absences [] Suspicion of active use by patient [] Confirmation of Sobriety [] Lack of Program Compliance [] Patient Request [] Other (identify): Results shared with patient: [x] Negative UDS Results [] Negative Confirmation Test Results [] Positive UDS Result for: [] Positive Confirmation Test Result(s) for: [] Breathalyzer Result: Patient Response to Test Result(s): Pt is in agreement with the results. Plan/Intervention Based on Test Results: Pt will continue to attend the evening IOP group. [] Increase frequency of testing [] Linkage/referral for additional services [] Consideration for higher level of care [] Additional Information/education [] Consider change in treatment milieu [] Consideration for lower level of care [] Referral to MAT [] Skill development/reinforcement [] Request Confirmation Test [] Retest (note timeframe below) [] Other (identify): Description of Plan/Intervention: Pt will continue to attend the evening IOP group. Patient's Response to Plan/Intervention:Pt is in agreement with the plan. [facility] 01-18-2023 History of Presen t illness Narrative Outpatient Behavioral Health Services Case Management/Care Coordination Note Date of Contact: 01/18/2023 Start Time: 12:59 PM End Time: 1:15 PM Duration: 16 Minutes Type of Contact: Telephone Patient's Identified Case Management/Care Coordination Need(s) addressed (select all that apply): ALEXANDRO Treatment Summary of Contact/Need at This Time: Worker from Children services called to get an update on the pt's progress in treatment. Per FILEMON signed by the pt, [facility] discussed the pt's UDS results and attendance in group during the conversation. The Calender Roll Operator informed the [facility] of historical information regarding the pt's use of drugs and the impact it has had in his life. Case Management Plan/Intervention: (select all that apply) Follow-Up Description of Case Management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 use of the same amount of a substance? Yes 11a) Has the client experienced withdrawal syndrome? Yes 11b) Has the client continued to take a substance to avoid withdrawal, or taken some other substance in order to feel okay? Yes Substance: Opioids; Cannabis Alcohol Severity: No data recorded Cannabis Severity: Mild Substance Use Disorder Hallucinogens Severity: No data recorded Inhalants Severity: No data recorded Opioids Severity: Severe Substance Use Disorder Sedative/Hypnotics Severity: No data recorded Stimulants Severity: No data recorded Other Severity: No data recorded Remission Status Specify remission status if applicable: No data recorded Substance(s) in remission: No data recorded How long has client been free of all symptoms? 2 days Summary of Multidimensional Assessment (ASAM) 1 Dimension 1 Severity Rating (Substance Use, Acute Intoxication, Withdrawal Potential): Mild, Rationale: Pt still in active use 1 Dimension 2 Severity Rating (Biomedical Conditions and Complications): Mild, Rationale: leg pain 0 Dimension 3 Severity Rating (Emotional, Behavioral, or Cognitive Conditions and Complications): No Risk/Stable, 1 Dimension 4 Severity Rating (Readiness to Change): Mild, Rationale: Pt seeking treatment due to [facility] involvement 1 Dimension 5 Severity Rating (Relapse, Continued Use, or Continued Problem Potential): Mild, Rationale: Pt currently in active use. Dimension 6 Severity Rating (Recovery/Living Environment): , Needs, Strengths, Preferences, and Goals (short & long-term personal goals) Needs: IOP Strengths: Adequate financial resources, Support from family Preferences: evenings Goals Improve quality of life by maintaining ongoing abstinence from all mood-altering substances (pt-stated) I need to stop using drugs and get my daughter back Mental Status Exam General Observations Appearance: Neatly groomed Demeanor: Spontaneous Activity: Normal Speech: Logical/coherent, Pressured Eye Contact: Fair Mood & Affect Mood: Euthymic Affect: Appropriate Behavior Behavior: Cooperative Cognition Orientation Level: Oriented X4 Level of Consciousness: Alert Thought Processes: Logical Thought Content: Blaming others Delusions: Perceptions: Memory Tested: No Memory Disturbance: No Attention Deficit: No Judgment: Impaired Insight: Impaired Suicide Risk Assessment Suicide Risk Assessment (Assess lethality if SI present) Ideation: none reported Intent: none reported Plan: none reported Self abusive behaviors: none reported Assessed Level of Suicide Risk Suicidal Ideation 1. Wish to be (Lifetime): No 2. Non-Specific Active Suicidal Thoughts (Lifetime): No Suicidal Behavior Actual Attempt (Lifetime): No Has subject engaged in non-suicidal self-injurious behavior? (Lifetime): No Interrupted Attempts (Lifetime): No Aborted or Self-Interrupted Attempt (Lifetime): No Preparatory Acts or Behavior (Lifetime): No C-SSRS Risk (Lifetime/Recent) Calculated C-SSRS Risk Score (Lifetime/Recent): No Risk Indicated Suicidal and Self-Injurious Behavior Actual Attempt (Lifetime): No Interrupted Attempts (Lifetime): No Aborted or Self-Interrupted Attempt (Lifetime): No Preparatory Acts or Behavior (Lifetime): No Has subject engaged in non-suicidal self-injurious behavior? (Lifetime): No Rationale for Risk Level (Narrative to include description of ALL FOUR of the following: historical and current suicidal ideation, suicidal behaviors, non-suicidal self-harming behaviors, and protective factors that support the level of suicide-risk selected. Rationale to include comment on each endorsed item on C-SSRS as well as clarification re: any baseline and/or significant changes in thoughts and behaviors related to suicide risk): Pt denies current or past SI. 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 Resources/Interventions Provided none Homicide/Aggressive Behavior Risk Assessment Does patient have any current/history of homicidal ideation? (Explain: identify any history of ideation, intent, plan and/or actual homicidal behaviors) History: No Current: No Does patient have any history of aggressive behavior/threats towards others that does not include homicidal intent? History: No Current: No Comments Re: Significant MSE Findings none Recommended Level of Care 2.1 Intensive Outpatient Services Level of Care Placed 2.1 Intensive Outpatient Services Patient's Response to Recommendations agreeable Diagnostic Impression (F11.20) Severe opioid use disorder (HCC) (F12.10) Mild cannabis use disorder Narrative Summary & Justification for Level of Care continuious opiate use, Pt presents is a 41 y/o S./C./M. who was referred for assessment by [facility] due to an ongoing case. Pt reports that he was prescribed opiates first in 2010 to manage pain from a hip infection. Pt reports that ongoing use led to dependence. Pt reports that after about two years his prescription was stopped and he started buying them off the street and eventually started to abuse them. Pt reports that Percocets became too expensive and he bought pressed pills which contained Fentanyl. Pt reports that he would crush the pill and then swallow it to gain a faster effect. Pt reports that he continues to use to avoid getting sick from the withdraws. Pt reports his last use was 2 days ago. Pt also reports that his girlfriend is also abusing Fentanyl. Pt also reports that he has been using Marijuana since the age of 12 with his last use being 2 days ago. Pt reports weekly use at this time which is down from daily use during his teens through his 20's. Pt appears to minimize his use and try to deflect the problematic behaviors to others. Pt reports that he was seen at [facility] for a short time but left because they just tried to push Suboxone on him . Pt presents dressed appropriately for the weather and the circumstance. Pt was orientated x4, euthymic. Pt talked a lot and went into excessive details during this assessment. Pt had to be interrupted and redirected several time through out the assessment. Pt denied SI/HI or self harm behaviors. Pt denied hallucinations or delusions. Pt is appropriate for and was referred to evening IOP with a start date of 12-12-2022. Linked Episodes Type: Episode: Status: Noted: Resolved: Last update: Updated by: Behavioral Health - Substance Use Treatment Services Intensive Outpatient Program - Addiction Active 12/05/2022 12/05/2022 3:25 PM NICOLE Hood Comments: NICOLE Hood documented in this encounter [facility] 06-07-2021 Note HNO ID: [id number] Author: RT Hieu(R) Service: ? Author Type: Router Operator Pin Type: Progress Notes Filed: 06/07/2021 11:45 AM Note Text: Radiology Service Progress Note PATIENT NAME: Eric Villa DATE OF SERVICE: June 07, 2021 TIME: 11:45 AM PATIENT IDENTITY VERIFICATION COMPLETED USING TWO (2) IDENTIFIERS: Name and Date of confirmed by patient verbally. FALL SCREENING: Has the patient had 2 falls in the last year or 1 fall with injury or currently using an Ambulatory Assistive Device (Walker, Cane, Wheelchair, Crutches, etc.)? No PATIENT GENDER DATA: Male PATIENT RELEVANT IMPLANT DATA REVIEWED: Not Applicable RADIOLOGY DEPARTMENT: General X-ray: Exam(s) Completed: Upper Extremity X-Ray(s): Fingers/Thumb, right PERIPHERAL IV DATA: Not applicable SIGNED BY: RT Hieu(R) June 07, 2021 11:45 AM [facility] 06-07-2021 Note HNO ID: [id number] Author: Koko King APRN.[employer] Service: ? Author Type: Nurse Practitioner Type: Progress Notes Filed: 06/07/2021 12:30 PM Note Text: This note was created using Zondle. Subjective Eric Villa is a 40 year old male. The history is provided by the patient. No speech language assistant was used. Musculoskeletal Problem This is a new (right index finger ) problem. The current episode started yesterday. The problem occurs constantly. The problem has been unchanged. Associated symptoms include joint swelling and weakness. The symptoms are aggravated by bending. Review of Systems Musculoskeletal: Positive for joint swelling. Neurological: Positive for weakness. HISTORIES No past medical history on file. No past surgical history on file. No family history on file. Social History Tobacco Use - Smoking status: Current Every Day Smoker Packs/day: 1.00 - Smokeless tobacco: Never Used Vaping Use - Vaping Use: Never used Substance Use Topics - Alcohol use: Yes Comment: 2 beers /night - Drug use: Yes Types: Marijuana No current outpatient medications on file prior to visit. No current facility-administered medications on file prior to visit. ALLERGIES Allergen Reactions - Penicillins Unknown DEPRESSION SCREENING Never done HIV SCREENING Never done DTAP,TDAP,TD(1 - Tdap) Never done LIPID SCREEN Never done COVID-19 VACCINE(3 - Booster for Pfizer series) due on 01/15/2021 INFLUENZA(1) Never done Objective BP 140/79 Pulse 98 Temp 36.2 ?C (97.2 ?F) Resp 18 Wt 88.1 kg (194 lb 1.9 oz) SpO2 98% BMI 27.85 kg/m? Physical Exam Vitals and nursing note reviewed. Constitutional: General: He is not in acute distress. Musculoskeletal: Right hand: Swelling, laceration and tenderness present. Decreased range of motion. Hands: Comments: + pain with flexion and extension Neurological: Mental Status: He is alert. Psychiatric: Behavior: Behavior is cooperative. XR Finger: IMPRESSION: No Acute Fracture. ? Ride Assembly Supervisor: CASIMIRO Transcribe Date/Time: Jun 07 2021 11:45A ? Dictated by : ROSEMARIE MCLAIN MD ? This examination was interpreted and the report reviewed and electronically signed by: ROSEMARIE MCLAIN MD on Jun 07 2021 11:46AM EST ? ? ASSESSMENT/PLAN: 1. Contusion of right index finger without damage to nail, initial encounter - ICD9: 923.3, ICD10: S60.021A (primary diagnosis) - APPLY FINGER SPLINT,DYNAMIC 2. Pain of finger of right hand - ICD9: 729.5, ICD10: M79.644 - XR DIGIT GENERAL 3V FRONTAL/LAT/OBL RIGHT- reviewed imaging and discussed with pt - APPLY FINGER SPLINT,DYNAMIC- applied in office -pt education along with discharge instructions given to pt -pt agreeable with plan -follow-up if symptoms don't improve in 3-5 days or get worse Koko King APRN.[facility] Evaluation note Diagnosis Knee laceration, right, initial encounter- Primary documented in this encounter [facility] Work Phone: Evaluation note* Diagnosis Severe opioid use disorder (HCC) Mild cannabis use disorder [facility] Diagnosis Opioid type dependence, continuous (HCC)- Primary Opioid type dependence, continuous Cannabis abuse, continuous [facility] Diagnosis Severe opioid use disorder (HCC)- Primary Mild cannabis use disorder [facility] Diagnosis Severe opioid use disorder (HCC)- Primary Mild cannabis use disorder [facility] Diagnosis Severe opioid use disorder (HCC) [F11.20 (ICD-10-CM)] Mild cannabis use disorder [F12.10 (ICD-10-CM)] [facility] Diagnosis Mild cannabis use disorder- Primary Severe opioid use disorder (HCC) [facility] Diagnosis Mild cannabis use disorder- Primary Severe opioid use disorder (HCC) [facility] Diagnosis Severe opioid use disorder (HCC)- Primary Mild cannabis use disorder [facility] Diagnosis Severe opioid use disorder (HCC) Mild cannabis use disorder [facility] Diagnosis Severe opioid use disorder (HCC) Mild cannabis use disorder [facility] Diagnosis Severe opioid use disorder (HCC)- Primary [facility] Diagnosis Mild cannabis use disorder- Primary Severe opioid use disorder (HCC) [facility] Severe opioid use disorder (HCC) Mild cannabis use disorder [facility]ioid use [facility] Diagnosis Severe [facility] use disorder ([facility]) [facility]ioid use [facility] Diagnosis Severe [facility] use disorder (HCC) [facility]ioid use [facility]ioid use disorder [facility] Diagnosis Severe opioid use disorder (HCC) [facility] Diagnosis Severe [facility] use disorder ([facility]CC) [facility] Diagnosis Severe [facility] use disorder ([facility]) [facility] Diagnosis Severe opioid use disorder (HCC) [facility] Discharge instructions* Attachments The following attachments cannot be sent through Care Everywhere. * Lacerations: Stitches (Grenadian) [facility] Summary Purpose Family History No Family History Records FoundNo Family History Records FoundNo Family History Records FoundNo Family History Records FoundNo Family History Records Found Advance Directives No Advanced Directives Records FoundNo Advanced Directives Records FoundNo Advanced Directives Records FoundNo Advanced Directives Records FoundNo Advanced Directives Records Found Additional Source Comments (unrecognized sect ion and content) No Status Records FoundNo Status Records FoundNo Status Records FoundNo Status Records FoundNo Status Records Found INFORMATION SOURCE (unrecogn ized section and content) DATE CREATED AUTHOR 11/22/2017 Pio Marx [facility] DATE CREATED AUTHOR AUTHOR'S ORGANIZ ATION 08/24/2021 [facility] DATE CREATED AUTHOR AUTHOR'S ORGANIZ ATION 11/02/2021 [facility] DATE CREATED AUTHOR AUTHOR'S ORGANIZ ATION 02/25/2022 Pio Marx [facility] DATE CREATED AUTHOR AUTHOR'S ORGANIZ ATION 12/15/2024 [facility] Reason for Visit (unrecogniz ed section and content) Reason Comments Knee Injury Reason Comments Drug / Alcohol Assessment Reason Comments Drug / Alcohol Assessment Pt presented f or assessment for IOP. Scheduled Active and Recently Administ ered Medications (unrecognized section and content) Medication Order 10/29/2021 10/30/2021 10/31/2021 lidocaine-EPINEPHrine 1 %-1:[id number] injection 20 mL (COMPLETED) 20 mL, IntraDERmal, ONCE, 1 dose, On 10/31/21 at 0056 0114 (Given - Provid er: Clarisse Owens RN) Care Teams (unrecognized sec tion and content) Drywall Stripper Relationship Specialty Start Date End Date Devin Laboy MD PCP - General 03/25/15 Drywall Stripper Relationship Specialty Start Date End Date Devin Laboy MD [address] [place] [phone] PCP - General 03/25/15 Drywall Stripper Relationship Specialty Start Date End Date Devin Laboy MD [address] [place] [address] PCP - General 03/25/15 Drywall Stripper Relationship Specialty Start Date End Date Devin Laboy MD [address] [place] [address] PCP - General 03/25/15 Drywall Stripper Relationship Specialty Start Date End Date Devin Laboy MD [address] [place] [phone] PCP - General 03/25/15 Drywall Stripper Relationship Specialty Start Date End Date Devin Laboy MD [address] [place] [address] PCP - General 03/25/15 Drywall Stripper Relationship Specialty Start Date End Date Devin Laboy MD [address] [facility] [place] [address] PCP - General 03/25/15 Drywall Stripper Relationship Specialty Start Date End Date Devin Laboy MD [address] [facility] [place] [address] PCP - General 03/25/15 Drywall Stripper Relationship Specialty Start Date End Date Devin Laboy MD [address] [facility] [place] [address] PCP - General 03/25/15 Drywall Stripper Relationship Specialty Start Date End Date Devin Laboy MD [address] [facility] [place] [address] PCP - General 03/25/15 Drywall Stripper Relationship Specialty Start Date End Date Devin Laboy MD [address] [facility] [place] [address] PCP - General 03/25/15 Drywall Stripper Relationship Specialty Start Date End Date Devin Laboy MD [address] [facility] [place] [address] PCP - General 03/25/15 Drywall Stripper Relationship Specialty Start Date End Date Devin Laboy MD [address] [facility] [place] [phone] PCP - General 03/25/15 Drywall Stripper Relationship Specialty Start Date End Date Devin Laboy MD [address] [place] [address] PCP - General 03/25/15 Drywall Stripper Relationship Specialty Start Date End Date Devin Laboy MD [address] [place] [address] PCP - General 03/25/15 Drywall Stripper Relationship Specialty Start Date End Date Devin Laboy MD [address] [place] [address] PCP - General 03/25/15 Drywall Stripper Relationship Specialty Start Date End Date Devin Laboy MD [address] [place] [address] PCP - General 03/25/15 Drywall Stripper Relationship Specialty Start Date End Date Devin Laboy MD PCP - General 03/25/15 Drywall Stripper Relationship Specialty Start Date End Date Devin Laboy MD PCP - General 03/25/15 Drywall Stripper Relationship Specialty Start Date End Date Devin Laboy MD PCP - General 03/25/15 Drywall Stripper Relationship Specialty Start Date End Date Devin Lbaoy MD PCP - General 03/25/15 Drywall Stripper Relationship Specialty Start Date End Date Devin Laboy MD PCP - General 03/25/15 Drywall Stripper Relationship Specialty Start Date End Date Devin Laboy MD PCP - General 03/25/15 Drywall Stripper Relationship Specialty Start Date End Date Devin Laboy MD PCP - General 03/25/15 Drywall Stripper Relationship Specialty Start Date End Date Devin Laboy MD PCP - General 03/25/15 Drywall Stripper Relationship Specialty Start Date End Date Devin Laboy MD PCP - General 03/25/15 Drywall Stripper Relationship Specialty Start Date End Date Devin Laboy MD PCP - General 03/25/15 Drywall Stripper Relationship Specialty Start Date End Date Devin Laboy MD PCP - General 03/25/15 Drywall Stripper Relationship Specialty Start Date End Date Devin Laboy MD PCP - General 03/25/15 Drywall Stripper Relationship Specialty Start Date End Date Devin Laboy MD PCP - General 03/25/15 Drywall Stripper Relationship Specialty Start Date End Date Devin Laboy MD [facility] General 03/25/15 Drywall Stripper Relationship Specialty Start Date End Date Devin Laboy MD [facility] General 03/25/15 Drywall Stripper Relationship Specialty Start Date End Date Devin Laboy MD [facility] 03/25/15 Drywall Stripper Relationship Specialty Start Date End Date Devin Laboy MD [facility] 03/25/15 Drywall Stripper Relationship Specialty Start Date End Date Devin Laboy MD [facility] 03/25/15 FOR RECORDS PERTAINING TO PATIENTS WHO ARE OR HAVE BEEN ENROLLED IN A CHEMICAL DEPENDENCY/SUBSTANCEABUSE PROGRAM, SOME INFORMATION MAY BE OMITTED. This clinical summary was aggregated from multiple sources. Caution should be exercised in using it in the provision of clinical care. This summary normalizes information from multiple sources, and as a consequence, information in this document may materially change the coding, format and clinical context of patient data. In addition, data may be omitted in some cases. CLINICAL DECISIONS SHOULD BE BASED ON THE PRIMARY CLINICAL RECORDS. [facility] [employer] [facility]. provides no warranty or guarantee of the accuracy or completeness of information in this document.
--- NOTE | 2025-02-15 17:54 | PCM.HP.STD ---
HPI - General General Date of Admission: 02/15/25 Date of Service: 02/15/25 Chief Complaint: Opiate withdrawal HPI Narrative ERIC MATIAS, is a 44 M who presents to the emergency room at [facility] from skilled nursing due to symptoms of opiate withdrawal. The last time patient used was yesterday, he states he snorts fentanyl. Patient denies any other drug usage. He has complaints of nausea and nervousness and generalized muscle pains. Patient has consented to going to the [facility] program here at the hospital. Labs obtained in the emergency room were remarkable for a potassium of 3.2 and a white blood cell count of 18.9. Patient's hemoglobin was 16.7. Patient will be admitted to [place] [address] for acute opiate withdrawal and opiate substance abuse disorder, he will be seen by addiction social media content specialist [facility] Medical History Drug use Home Medications ?Medication ?Instructions ?Recorded ?Last Taken ?Type NK 02/15/25 Unknown History Allergy/AdvReac Type Severity Reaction Status Date / Time No Known Allergies Allergy Verified 02/15/25 16:17 Social History current occupational status: unemployed Smoking Status: Current every day smoker tobacco type: cigarettes ROS Constitutional Constitutional: Denies anorexia, change in weight, fever(s), night sweats or weakness Eyes Eyes: Denies blurry vision, change in vision, discharge from eye(s) or eye pain Cardiovascular Cardiovascular: Denies chest pain, claudication, dyspnea on exertion, edema or palpitations Respiratory/Chest Respiratory/Chest: Denies cough, hemoptysis, shortness of breath at rest or shortness of breath with exertion Gastrointestinal Gastrointestinal: Reports nausea; Denies abdominal pain, constipation, diarrhea, hematemesis, hematochezia, melena or vomiting Genitourinary Genitourinary: Denies dysuria, hematuria, urinary frequency, urinary hesitancy, urinary incontinence or urinary urgency Musculoskeletal Musculoskeletal: Reports myalgias; Denies back pain, joint pain, joint stiffness, joint swelling or neck pain Neurologic Neurologic: Denies abnormal gait, abnormal speech, dizziness, focal weakness, headache(s), loss of vision, numbness, other visual disturbances, paresthesias, syncope or tingling Psychiatric Psychiatric: Reports anxiety; Denies cognitive impairment, depression, irritability, mood swings or suicidal ideation Endocrine Endocrinology: Denies change in body appearance, cold intolerance, excessive sweating, heat intolerance, polydipsia or polyuria Hematologic/Lymphatic Hematologic/Lymphatic: Denies none, anemia, easy bleeding, easy bruising or lymphadenopathy Allergic/Immunologic Allergic/Immunologic: Denies rhinitis, urticaria, eczemia or asthma Vital Signs Vital Signs Vital Signs: 02/15/25 16:17 Temperature 99.6 F H Temperature Source Oral Pulse Rate 74 Respiratory Rate 26 H Blood Pressure 153/93 H Blood Pressure Mean 113 Pulse Ox 100 Oxygen Delivery Method Room Air Weight Weight: 80.966 kg Body Mass Index (BMI) 25.6 Physical Exam Const alert, oriented x3 and no apparent distress General Appearance: cooperative, well kempt and well developed Orientation / Consciousness: awake, oriented to person, oriented to place and oriented to time HEENT normocephalic, head/scalp atraumatic, hearing grossly normal bilaterally and moist oral mucous membranes Eyes PERRL, EOMs intact bilaterally and conjunctivae normal Neck supple, no JVD, thyroid normal and no carotid bruits General: trachea midline Resp normal respiratory effort, no retractions, no use of accessory muscles and clear to auscultation bilaterally Auscultation: Negative for rales, rhonchi or wheezes Cardio regular rate, regular rhythm, S1 normal heart sound, S2 normal heart sound, no murmurs, no rub and no gallops GI normal to inspection, nondistended, normoactive bowel sounds, soft to palpation, non-tender and non-distended Extremity no clubbing, cyanosis or edema Skin no rashes or lesions noted General Skin Exam: no breakdown Neuro oriented x3, CN's II-XII intact bilaterally, no focal motor deficits and no sensory deficits noted Sensorium / Orientation: awake and alert Speech: speech normal Psych Psych Narrative: Patient appears sleepy at the time of my examination Results Lab / Micro Data 02/15/25 16:22 02/15/25 16:22 Labs: Laboratory Results - last 24 hr 02/15/25 16:22: WBC 18.9 H, RBC 5.19, Hgb 16.7 H, Hct 48.0, MCV 92.5, MCH 32.2 H, MCHC 34.8, RDW Std Deviation 44.0 H, RDW Coeff of Anna 13.1, Plt Count 348, MPV 11.1, Immature Gran % (Auto) 0.700, Neut % (Auto) 91.2 H, Lymph % (Auto) 3.9 L, Lamb % (Auto) 4.0, Eos % (Auto) 0.0, Baso % (Auto) 0.2, Absolute Neuts (auto) 17.2 H, Absolute Lymphs (auto) 0.74 L, Nucleated RBC % 0, Sodium 143, Potassium 3.2 L, Chloride 97 L, Carbon Dioxide 29.6, Anion Gap 17 H, BUN 18, Creatinine 0.94, Estim Creat Clear Calc 101.39, Est GFR (MDRD) Non-Af 102, BUN/Creatinine Ratio 18.7, Glucose 188 H, Calcium 9.8, Total Bilirubin 0.62, AST 21, ALT 20, Alkaline Phosphatase 78, Total Protein 7.8, Albumin 4.6, Globulin 3.2, Albumin/Globulin Ratio 1.4, Ethyl Alcohol < 10.1 Assessment & Plan Assessment/Plan (1) Opiate withdrawal: PLAN: Plan 1. Opiate withdrawal-patient will be admitted to [place] [address], medications and orders were entered using the addiction templates, patient will be seen by addiction social media content specialist. #2 hypokalemia-patient will be given oral potassium, BMP will be rechecked #3 hyperglycemia-patient's BMP will be rechecked tomorrow morning Total clinical time spent by myself addressing patient's medical issues, reviewing all of his data, and collaborating with patient's care team: 40 minutes Charges/Coding Visit Charges Inpatient E&M: [id number] Init Hosp L1
--- OUTSIDE RECORDS SUMMARY | 2025-02-15 19:36 | XMS RPT_ITS | CCD ---
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 94on 12-11-2024 94 [facility] Therapy Documentation Program: Addiction Medicine Intensive Outpatient ProgramGroup Type: Relapse Prevention Group Group Date: 12/11/2024 Facilitators: NICOLE Trent Department: [facility] Addiction IOP Group No: 1 Start Time: [...] Continue with current services Additional Comments (optional): [facility] Progress Noteon 12-04-2024 Progress Note Missed Session Unexcused Pt did not call or show for Relapse Prevention on this date. [facility] 94on 11-27-2024 94 [facility] Group Therapy Documentation Program: Addiction Medicine Intensive Outpatient ProgramGroup Type: Relapse Prevention Group Group Date: 11/27/2024 Facilitators: NICOLE Hood Department: [facility] Addiction IOP Group No: 1 Start Time: [...] Continue with current services Additional Comments (optional): [facility] Progress Noteon 11-20-2024 Progress Note Pt called off from Relapse Prevention group due to work. [facility] Progress Noteon 11-13-2024 Progress Note Pt called off from Relapse Prevention group due to unknown reason. [facility] 11-06-2024 94 [facility] Group Therapy Documentation Program: Addiction Medicine Intensive Outpatient ProgramGroup Type: Relapse Prevention Group Group Date: 11/06/2024 Facilitators: NICOLE Hood Department: [facility] IOP Group No: 1 Start Time: [...] Continue with current services Additional Comments (optional): [facility] 10-30-2024 30 [place] update no changes [facility] 9410-30-2024 94 [facility] Group Therapy Documentation Program: Addiction Medicine Intensive Outpatient ProgramGroup Type: Relapse Prevention Group Group Date: 10/30/2024 Facilitators: NICOLE Hood Department: [facility] Group No: 1 Start Time: [...] with current services Additional Comments (optional): Normal [facility] MEDICATION ASSISTED TREATMEN T KENJIon 10-30-2024 Amphetamines Ql (U) Negative Normal Negative [facility] Comment on above: Performed By: #### L [id number] ####Accounts Clerk: ALCIDES MALHOTRA ([phone])[facility])[address] [place] [address] BARBITURATES Negative Normal Negative [facility] Comment on above: Performed By: #### L [id number] ####Accounts Clerk: ALCIDES MALHOTRA ([phone])[facility])[address] [place] [address] Benzodiazepines Ql (U) Negative Normal Negative [facility] Comment on above: Performed By: #### L [id number] ####Accounts Clerk: ALCIDES MALHOTRA ([phone])[facility])[address] [place] [address] BUPRENORPHINE SCREEN Negative Normal Negative [facility] Comment on above: Performed By: #### L [id number] ####Accounts Clerk: ALCIDES MALHOTRA ([phone])[facility])[address] [place] [address] Cocaine Ql (U) Negative Normal Negative [facility] Comment on above: Performed By: #### L [id number] ####Accounts Clerk: ALCIDES [id number])[facility])[address] [place] [address] ETHANOL-ETOHO Negative Normal Negative [facility] Comment on above: Result Comment: [...] using non-forensic procedures. Performed By: #### L [id number] ####Accounts Clerk: ALCIDES MALHOTRA ([phone])[facility] ([facility])[address] [place] [address] FENTANYL Negative Normal Negative [facility] Comment on above: Performed By: #### L [id number] ####Accounts Clerk: ALCIDES MALHOTRA ([phone])[facility] ([facility])[address] [place] [address] Methadone Ql (U) Negative Normal Negative [facility] Comment on above: Performed By: #### L [id number] ####Accounts Clerk: ALCIDES MALHOTRA ([id number])[facility] ([facility])[address] [place] [address] Opiates Ql (U) Negative Normal Negative [facility] Comment on above: Performed By: #### L [id number] ####Accounts Clerk: ALCIDES MALHOTRA ([phone])[facility] ([facility])[address] [place] [address] OXYCODONE/OXYMORPHONE Negative Normal Negative [facility] Comment on above: Performed By: #### L [id number] ####Accounts Clerk: ALCIDES MALHOTRA ([id number])[facility] ([facility])[address] [place] [address] PCP Negative Normal Negative [facility] Comment on above: Performed By: #### L [id number] ####Accounts Clerk: ALCIDES MALHOTRA ([id number])[facility] ([facility])[address] [place] [address] THC-MTTHC Negative Normal Negative [facility] Comment on above: Performed By: #### L [id number] ####Accounts Clerk: ALCIDES MALHOTRA ([id number])[facility] ([facility])[address] [place] [address] 9410-23-2024 94 [facility] Therapy Documentation Program: Addiction Medicine Intensive Outpatient ProgramGroup Type: Relapse Prevention Group Group Date: 10/23/2024 Facilitators: NICOLE Hood Department: [facility] Group No: 1 Start Time: [...] Continue with current services Additional Comments (optional): [facility] Progress Noteon 10-16-2024 Progress Note Pt called off from Relapse Prevention group due to overslept. [facility] 94on 10-09-2024 94 [facility] Group Therapy Documentation Program: Addiction Medicine Intensive Outpatient ProgramGroup Type: Relapse Prevention Group Group Date: 10/09/2024 Facilitators: NICOLE Hood Department: [facility] Group No: 1 Start Time: [...] Continue with current services Additional Comments (optional): [facility] 3010-02-2024 30 Pt progressing [place] review [facility] 10-02-2024 94 [facility] Group Therapy Documentation Program: Addiction Medicine Intensive Outpatient ProgramGroup Type: Relapse Prevention Group Group Date: 10/02/2024 Facilitators: NICOLE Rowland Department: [facility] Group No: 1 Start Time: [...] are going well. 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 He stated things at work are going great and he expects to get hired on and then a promotion. Mental Status Exam: Affect and Mood: appropriate Behavior: Cooperative Cognition: Oriented X4 Additional comments: none Progress Towards Goals: Moderate Next Step(s): Continue with current services Additional Comments (optional): 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 [facility] 94on 09-18-2024 94 [facility] Group Therapy Documentation Program: Addiction Medicine Intensive Outpatient Program Group Type: Relapse Prevention Group Group Date: 09/18/2024 Facilitators: NICOLE Hood Department: [facility] Group No: 1 Start Time: [...] Continue with current services Additional Comments (optional): [facility] Progress Noteon 09-11-2024 Progress Note Pt called off from Relapse Prevention group due to transportation issues. [facility] 94on 09-04-2024 94 [facility] Group Therapy Documentation Program: Addiction Medicine Intensive Outpatient Program Group Type: Relapse Prevention Group Group Date: 09/04/2024 Facilitators: NICOLE Hood Department: [facility] Group No: 1 Start Time: [...] Continue with current services Additional Comments (optional): [facility] 94on 08-29-2024 94 [facility] Group Therapy Documentation Program: Addiction Medicine Intensive Outpatient Program Group Type: Addiction IOP Group Date: 08/29/2024 Facilitators: Catherine Perez Department: [facility] Group No: 1 Start Time: [...] with current services Additional Comments (optional): NA [facility] Nursing Noteon 08-29-2024 Nursing Note Ashutosh Villa met requirements to safely discharge from [facility]. Ashutosh medication list reviewed. Ashutosh has a fair understanding of medications. Follow-up appointments scheduled with Jt Ramirez. Ashutosh expresses plans to attend follow-up care. Ashutosh denies SI/HI and states feeling ready to discharge from this level of care. [facility] 94on 08-27-2024 94 [facility] Group Therapy Documentation Program: Addiction Medicine Intensive Outpatient Program Group Type: Addiction IOP Group Date: 08/27/2024 Facilitators: Catherine Perez Department: [facility] Group No: 1 Start Time: [...] with current services Additional Comments (optional): NA [facility] 94on 08-26-2024 94 [facility] Group Therapy Documentation Program: Addiction Medicine Intensive Outpatient Program Group Type: Addiction IOP Group Date: 08/26/2024 Facilitators: NICOLE Rowland Department: [facility] Group No: 1 Start Time: [...] Continue with current services Additional Comments (optional): [facility] 29on 08-22-2024 29 Encounter addended by: Catherine Perez on: 08/26/2024 10:42 AM Actions taken: Visit diagnoses modified, Charge Capture section accepted [facility] 29 Encounter addended by: Rose Fisher on: 08/26/2024 10:50 AM Actions taken: Charge Capture section accepted [facility] Laboratory - Drug toxicology Ordered By: Yvonne Rodríguez on 08-20-2024 Amphetamines Ql (U) Negative Negative [facility] Barbiturates screen method Nom (U) Negative Negative [facility] Benzodiazepines screen method Nom (U) Negative Negative [facility] Cocaine Ql (U) Negative Negative [facility] Ethanol [Mass/Vol] Negative Negative [facility] Methadone Ql (U) Negative Negative [facility] Opiates Screen Ql (U) Negative Negative [facility] No Panel InformationOrdered By: Yvonne Rodríguez on 08-20-2024 BUPRENORPHINE SCREEN Negative Negative [facility] FENTANYL Negative Negative [facility] OXYCODONE/OXYMORPHONE Negative Negative [facility] PCP Negative Negative [facility] THC Negative Negative [facility] The expected value for the drugs [...] treatment only. Analysis performed using non-forensic procedures. [facility] 94on 08-15-2024 94 Outpatient [facility] Health Services Group Therapy Documentation Program: Addiction Medicine Intensive Outpatient ProgramGroup Type: Addiction IOP Group Date: 08/15/2024 Facilitators: Marlon Li Department: [facility] Group No: 1 Start Time: [...] with current services Additional Comments (optional): Normal [facility] Laboratory - Drug toxicology Ordered By: Yvonne Rodríguez on 08-13-2024 Amphetamines Ql (U) Negative Negative [facility] Barbiturates screen method Nom (U) Negative Negative [facility] Benzodiazepines screen method Nom (U) Negative Negative [facility] Cocaine Ql (U) Negative Negative [facility] Ethanol [Mass/Vol] Negative Negative [facility] Methadone Ql (U) Negative Negative [facility] Opiates Screen Ql (U) Negative Negative [facility] No Panel InformationOrdered By: Yvonne Rodríguez on 08-13-2024 BUPRENORPHINE SCREEN Negative Negative [facility] FENTANYL Negative Negative [facility] OXYCODONE/OXYMORPHONE Negative Negative Sum [facility] PCP Negative Negative [facility] THC Negative Negative [facility] The expected value for the drugs [...] treatment only. Analysis performed using non-forensic procedures. [facility] Laboratory - Drug toxicology Ordered By: Yvonne Rodríguez on 08-06-2024 Amphetamines Ql (U) Negative Negative [facility] Barbiturates screen method Nom (U) Negative Negative [facility] Benzodiazepines screen method Nom (U) Negative Negative [facility] Cocaine Ql (U) Negative Negative [facility] Ethanol [Mass/Vol] Negative Negative [facility] Methadone Ql (U) Negative Negative [facility] Opiates Screen Ql (U) Negative Negative [facility] No Panel InformationOrdered By: Yvonne Rodríguez on 08-06-2024 BUPRENORPHINE SCREEN Negative Negative [facility] FENTANYL Negative Negative [facility] OXYCODONE/OXYMORPHONE Negative Negative [facility] PCP Negative Negative [facility] THC Negative Negative [facility] The expected value for the drugs [...] treatment only. Analysis performed using non-forensic procedures. [facility] Laboratory - Drug toxicology Ordered By: Simone Mcfarland on 08-02-2024 Amphetamines Ql (U) Negative Negative [facility] Barbiturates screen method Nom (U) Negative Negative [facility] Benzodiazepines screen method Nom (U) Negative Negative [facility] Cocaine Ql (U) Negative Negative [facility] Ethanol [Mass/Vol] Negative Negative [facility] Methadone Ql (U) Negative Negative [facility] Opiates Screen Ql (U) Negative Negative [facility] No Panel InformationOrdered By: Simone Mcfarland on 08-02-2024 BUPRENORPHINE SCREEN Negative Negative [facility] FENTANYL Negative Negative [facility] OXYCODONE/OXYMORPHONE Negative Negative [facility] PCP Negative Negative [facility] THC Negative Negative [facility] The expected value for the drugs [...] treatment only. Analysis performed using non-forensic procedures. [facility] Laboratory - Drug toxicology Ordered By: Yvonne Rodríguez on 07-23-2024 Amphetamines Ql (U) Negative Negative [facility] Barbiturates screen method Nom (U) Negative Negative [facility] Benzodiazepines screen method Nom (U) Negative Negative [facility] Cocaine Ql (U) Negative Negative [facility] Ethanol [Mass/Vol] Negative Negative [facility] Methadone Ql (U) Negative Negative [facility] alth Opiates Screen Ql (U) Negative Negative Sum [facility] No Panel InformationOrdered By: Yvonne Rodríguez on 07-23-2024 BUPRENORPHINE SCREEN Negative Negative [facility] FENTANYL Negative Negative [facility] OXYCODONE/OXYMORPHONE Negative Negative Sum [facility] PCP Negative Negative [facility] THC Negative Negative [facility] The expected value for the drugs listed [...] treatment only. Analysis performed using non-forensic procedures. [facility] Laboratory - Drug toxicology on 04-05-2023 Amphetamines Ql (U) Negative Negative [facility] Benzodiazepines Ql (U) Negative Negative [facility] Cocaine Ql (U) Negative Negative [facility] Ethanol [Mass/Vol] Negative Negative [facility] Opiates Ql (U) Negative Negative [facility] No Panel Informationon 04-05 BARBITURATES Negative Negative [facility] OXYCODONE/OXYMORPHONE Negative Negative [facility] THC Negative Negative [facility] The expected value for the drugs listed [...] treatment only. Analysis performed using non-forensic procedures. [facility] Laboratory - Drug toxicology on 03-30-2023 Amphetamines Ql (U) Negative Negative [facility] Benzodiazepines Ql (U) Negative Negative [facility] Cocaine Ql (U) Negative Negative [facility] Ethanol [Mass/Vol] Negative Negative [facility] Opiates Ql (U) Negative Negative [facility] No Panel Informationon 03-30 FENTANYL SCREEN, URINE Negative Negative [facility] Fentanyl has been screened for by Immunoassay at a 1 ng/ml threshold. POSITIVE results are not confirmed by a more specific alternative method unless requested. If confirmation is needed, request confirmation under separate order. NOTE: These results are for medical treatment only. Analysis performed using non-forensic procedures. [facility] BARBITURATES Negative Negative [facility] OXYCODONE/OXYMORPHONE Negative Negative [facility] THC Negative Negative [facility] The expected value for the drugs listed [...] treatment only. Analysis performed using non-forensic procedures. [facility] Laboratory - Drug toxicology on 03-02-2023 Amphetamines Ql (U) Negative Negative [facility] Benzodiazepines Ql (U) Negative Negative [facility] Cocaine Ql (U) Negative Negative [facility] Ethanol [Mass/Vol] Negative Negative [facility] Opiates Ql (U) Negative Negative [facility] No Panel Informationon 03-02 BUPRENORPHINE SCREEN Negative Negative [facility] Buprenorphine (Suboxone) has been screened for by Immunoassay at 5 ng/mL threshold. POSITIVE results are not confirmed by a more specific alternative method unless requested. If confirmation is needed, request confirmation under separate order. NOTE: These results are for medical treatment only. Analysis performed using non-forensic procedures. [facility] ETHYL GLUCURONIDE, URINE Negative Negative [facility] Ethyl Glucuronide has been screened by Immunoassay [...] been determined by the clinical laboratories of [facility]. [facility] FENTANYL SCREEN, URINE Negative Negative [facility] Fentanyl has been screened for by Immunoassay at a 1 ng/ml threshold. POSITIVE results are not confirmed by a more specific alternative method unless requested. If confirmation is needed, request confirmation under separate order. NOTE: These results are for medical treatment only. Analysis performed using non-forensic procedures. [facility] BARBITURATES Negative Negative [facility] OXYCODONE/OXYMORPHONE Negative Negative [facility] THC Negative Negative [facility] The expected value for the drugs listed [...] treatment only. Analysis performed using non-forensic procedures. [facility] Laboratory - Drug toxicology Ordered By: [facility] on 01-25-2023 Amphetamines Ql (U) Negative Negative [facility] Benzodiazepines Ql (U) Negative Negative [facility] Cocaine Ql (U) Negative Negative [facility] Ethanol [Mass/Vol] Negative Negative [facility] Opiates Ql (U) Negative Negative [facility] No Panel InformationOrdered By: [facility] on 01-25-2023 BARBITURATES Negative Negative [facility] OXYCODONE/OXYMORPHONE Negative Negative [facility] THC Negative Negative [facility] The expected value for the drugs listed [...] treatment only. Analysis performed using non-forensic procedures. [facility] No Panel Informationon 01-25 FENTANYL SCREEN, URINE Negative Negative [facility] Fentanyl has been screened for by Immunoassay at a 1 ng/ml threshold. POSITIVE results are not confirmed by a more specific alternative method unless requested. If confirmation is needed, request confirmation under separate order. NOTE: These results are for medical treatment only. Analysis performed using non-forensic procedures. [facility] Laboratory - Drug toxicology on 01-20-2023 Amphetamines Ql (U) Negative Negative [facility] Benzodiazepines Ql (U) Negative Negative [facility] Cocaine Ql (U) Negative Negative [facility] Ethanol [Mass/Vol] Negative Negative [facility] Opiates Ql (U) Negative Negative [facility] No Panel Informationon 01-20 BARBITURATES Negative Negative [facility] FENTANYL SCREEN, URINE Negative Negative [facility] OXYCODONE/OXYMORPHONE Negative Negative [facility] THC Negative Negative [facility] [facility] [place] The expected value for the drugs listed [...] treatment only. Analysis performed using non-forensic procedures. [facility] Fentanyl has been screened for by Immunoassay at a 1 ng/ml threshold. POSITIVE results are not confirmed by a more specific alternative method unless requested. If confirmation is needed, request confirmation under separate order. NOTE: These results are for medical treatment only. Analysis performed using non-forensic procedures. [facility] [place] Laboratory - Drug toxicology on 01-03-2023 Amphetamines Ql (U) Negative Negative [facility] [place] Benzodiazepines Ql (U) Negative Negative [facility] Cocaine Ql (U) Negative Negative [facility] Ethanol [Mass/Vol] Negative Negative [facility] [place] Opiates Ql (U) Negative Negative [facility] No Panel Informationon 01-03 FENTANYL SCREEN, URINE Negative Negative [facility] Fentanyl has been screened for by Immunoassay at a 1 ng/ml threshold. POSITIVE results are not confirmed by a more specific alternative method unless requested. If confirmation is needed, request confirmation under separate order. NOTE: These results are for medical treatment only. Analysis performed using non-forensic procedures. [facility] BARBITURATES Negative Negative [facility] [place] OXYCODONE/OXYMORPHONE Negative Negative [facility] THC Negative Negative [facility] [place] The expected value for the drugs listed [...] treatment only. Analysis performed using non-forensic procedures. [facility] Laboratory - Drug toxicology on 12-13-2022 Amphetamines Ql (U) Negative Negative [facility] [place] Benzodiazepines Ql (U) Negative Negative [facility] Cocaine Ql (U) Negative Negative [facility] Ethanol [Mass/Vol] Negative Negative [facility] Opiates Ql (U) Negative Negative [facility] No Panel Informationon 12-13 FENTANYL SCREEN, URINE Positive Negative [facility] Fentanyl has been screened for by Immunoassay at a 1 ng/ml threshold. POSITIVE results are not confirmed by a more specific alternative method unless requested. If confirmation is needed, request confirmation under separate order. NOTE: These results are for medical treatment only. Analysis performed using non-forensic procedures. [facility] BARBITURATES Negative Negative [facility] OXYCODONE/OXYMORPHONE Negative Negative [facility] THC Positive Negative [facility] [place] The expected value for the drugs listed [...] treatment only. Analysis performed using non-forensic procedures. [facility] ALLIED HEALTHon 02-07-2022 ALLIED HEALTH HNO ID: [id number] Author: RT Kane(R) Service: Radiology Author Type: [...] February 07, 2022 TIME: 9:47 PM Normal [facility] ALLIED HEALTH HNO ID: [id number] Author: JIMENEZ Middleton) Service: Radiology Author Type: [...] RT(R) February 07, 2022 7:26 PM Normal [facility] Basic metabolic 2000 panelon 02-07-2022 Anion gap [Moles/Vol] 6 mmol/L Low 8-16 [facility] Comment on above: Order Comment: Speci men Type: BLOOD SPECIMEN Ordering Facility: [facility] Address: [address] [place] [address] Performed By: #### 2 4321-2 #### [facility] CLIA [id number] [address] [place] [address] [place] Calcium [Mass/Vol] 9.3 mg/dL Normal 8.5-10.1 [facility] Comment on above: Order Comment: Speci men Type: BLOOD SPECIMEN Ordering Facility: [facility] Address: [address] [place] [address] Performed By: #### 2 4321-2 #### [facility] CLIA [id number] [address] [place] [address] [place] Chloride [Moles/Vol] 102 mmol/L Normal 98-107 [facility] Comment on above: Order Comment: Speci men Type: BLOOD SPECIMEN Ordering Facility: [facility] Address: [address] [place] [address] Performed By: #### 2 4321-2 #### [facility] CLIA [id number] [address] [place] [address] [place] CO2 [Moles/Vol] 30 mmol/L Normal 21-32 [facility] Comment on above: Order Comment: Speci men Type: BLOOD SPECIMEN Ordering Facility: [facility] Address: [address] [place] [address] Performed By: #### 2 4321-2 #### [facility] CLIA [id number] [address] [place] [address] [place] Creatinine [Mass/Vol] 0.74 mg/dL Normal 0.67-1.17 [facility] Comment on above: Order Comment: Holli walden Type: BLOOD SPECIMEN Ordering Facility: [facility] Address: [address] [place], [place] [address] Performed By: #### 2 4321-2 #### [facility] CLIA [id number] [address] [place], [place] [id number] [place] ESTIMATED GLOMERULAR FILTRATION RATE 115 mL/min/1.73m??? Normal >=60 [facility] Comment on above: Order Comment: Holli win Type: BLOOD SPECIMEN Ordering Facility: [facility] Address: [address] [place], [place] [address] Result Comment: Itzel mated Glomerular Filtration Rate [...] GFR. Performed By: #### 2 4321-2 #### [facility] CLIA [id number] [address] [place], [place] [id number] [place] Glucose [Mass/Vol] 95 mg/dL Normal 70-99 [facility] Comment on above: Order Comment: Holli walden Type: BLOOD SPECIMEN Ordering Facility: [facility] Address: [address] [place] [address] Result Comment: [place] Diabetes Association (ADA) provides guidance for cutoff [...] Standards of Medical Care in Diabetes 2016, [place] Diabetes Association. Diabetes Care. 2016.39(Suppl 1). Performed By: #### 2 4321-2 #### [facility] CLIA [id number] [address] [place] [address] [place] Potassium [Moles/Vol] 3.9 mmol/L Normal 3.5-5.1 [facility] Comment on above: Order Comment: Speci men Type: BLOOD SPECIMEN Ordering Facility: [facility] Address: [address] [place] [address] Performed By: #### 2 4321-2 #### [facility] CLIA [id number] [address] [place] [address] [place] Sodium [Moles/Vol] 138 mmol/L Normal 136-145 [facility] Comment on above: Order Comment: Speci men Type: BLOOD SPECIMEN Ordering Facility: [facility] Address: [address] [place] [address] Performed By: #### 2 4321-2 #### [facility] CLIA [id number] [address] [place] [address] [place] Urea nitrogen [Mass/Vol] 9 mg/dL Normal 7-18 [facility] Comment on above: Order Comment: Speci men Type: BLOOD SPECIMEN Ordering Facility: [facility] Address: [address] [place] [address] Performed By: #### 2 4321-2 #### [facility] CLIA [id number] [address] [place] [address] [place] CBC W Auto Differential pane l (Bld)on 02-07-2022 Basophils (Bld) [#/Vol] 0.03 10*3/uL Normal <0.11 [facility] Comment on above: Order Comment: Speci men Type: BLOOD SPECIMEN Ordering Facility: [facility] Address: [address] [place] [address] Performed By: #### 5 7021-8 #### [facility] CLIA [id number] [address] [place] [address] [place] Basophils/100 WBC (Bld) 0.3 % Normal A [facility] Comment on above: Order Comment: Speci men Type: BLOOD SPECIMEN Ordering Facility: [facility] Address: [facility] [place] [address] Performed By: #### 5 7021-8 #### [facility] CLIA [id number] [address] [place] [address] [place] Differential cell count method Nom (Bld) Auto Normal [facility] Comment on above: Order Comment: Speci men Type: BLOOD SPECIMEN Ordering Facility: [facility] Address: [address] [place] [address] Performed By: #### 5 7021-8 #### [facility] CLIA [id number] [address] [place] [address] [place] Eosinophils (Bld) [#/Vol] 0.09 10*3/uL Normal <0.46 [facility] Comment on above: Order Comment: Speci men Type: BLOOD SPECIMEN Ordering Facility: [facility] Address: [address] [place] [address] Performed By: #### 5 7021-8 #### [facility] CLIA [id number] [address] [place] [address] [place] Eosinophils/100 WBC (Bld) 1.0 % Normal [facility] Comment on above: Order Comment: Speci men Type: BLOOD SPECIMEN Ordering Facility: [facility] Address: [address] [place] [address] Performed By: #### 5 7021-8 #### [facility] CLIA [id number] [address] [place], [place] [id number] [place] Erythrocyte distribution width (RBC) [Ratio] 12.0 % Normal 11.5-15.0 [facility] Comment on above: Order Comment: Speci men Type: BLOOD SPECIMEN Ordering Facility: [facility] Address: [address] [place] [address] Performed By: #### 5 7021-8 #### [facility] CLIA [id number] [address] [place], [place] [id number] [place] Hematocrit (Bld) [Volume fraction] 46.3 % Normal 39.0-51.0 [facility] Comment on above: Order Comment: Speci men Type: BLOOD SPECIMEN Ordering Facility: [facility] Address: [address] [place] [address] Performed By: #### 5 7021-8 #### [facility] CLIA [id number] [address] [place] [address] [place] Hemoglobin (Bld) [Mass/Vol] 16.0 g/dL Normal 13.0-17.0 [facility] Comment on above: Order Comment: Speci men Type: BLOOD SPECIMEN Ordering Facility: [facility] Address: [address] [place] [address] Performed By: #### 5 7021-8 #### [facility] CLIA [id number] [address] [place] [address] [place] Lymphocytes (Bld) [#/Vol] 2.31 10*3/uL Normal 1.00-4.00 [facility] Comment on above: Order Comment: Speci men Type: BLOOD SPECIMEN Ordering Facility: [facility] Address: [address] [place] [address] Performed By: #### 5 7021-8 #### [facility] CLIA [id number] [address] [place], [place] [id number] [place] Lymphocytes/100 WBC (Bld) 25.7 % Normal [facility] Comment on above: Order Comment: Speci men Type: BLOOD SPECIMEN Ordering Facility: [facility] Address: [address] [place], [place] [address] Performed By: #### 5 7021-8 #### [facility] CLIA [id number] [address] [place], [place] [id number] [place] MCH (RBC) [Entitic mass] 33.3 pg Normal 26.0-34.0 [facility] Comment on above: Order Comment: Speci men Type: BLOOD SPECIMEN Ordering Facility: [facility] Address: [address] [place], [place] [address] Performed By: #### 5 7021-8 #### [facility] CLIA [id number] [address] [place] [address] [place] MCHC (RBC) [Mass/Vol] 34.6 g/dL Normal 30.5-36.0 [facility] Comment on above: Order Comment: Speci men Type: BLOOD SPECIMEN Ordering Facility: [facility] Address: [address] [place] [address] Performed By: #### 5 7021-8 #### [facility] CLIA [id number] [address] [place] [address] [place] MCV (RBC) [Entitic vol] 96.5 fL Normal 80.0-100.0 A [facility] Comment on above: Order Comment: Speci men Type: BLOOD SPECIMEN Ordering Facility: [facility] Address: [address] [place] [address] Performed By: #### 5 7021-8 #### [facility] CLIA [id number] [address] [place] [address] [place] Monocytes (Bld) [#/Vol] 0.79 10*3/uL Normal <0.87 [facility] Comment on above: Order Comment: Speci men Type: BLOOD SPECIMEN Ordering Facility: [facility] Address: [address] [place] [address] Performed By: #### 5 7021-8 #### [facility] CLIA [id number] [address] [place] [address] [place] Monocytes/100 WBC (Bld) 8.8 % Normal A [facility] Comment on above: Order Comment: Speci men Type: BLOOD SPECIMEN Ordering Facility: [facility] Address: [address] [place] [address] Performed By: #### 5 7021-8 #### [facility] CLIA [id number] [address] [place] [address] [place] Neutrophils (Bld) [#/Vol] 5.78 10*3/uL Normal 1.45-7.50 [facility] Comment on above: Order Comment: Speci men Type: BLOOD SPECIMEN Ordering Facility: [facility] Address: [address] [place] [address] Performed By: #### 5 7021-8 #### [facility] CLIA [id number] [address] [place] [address] [place] Neutrophils/100 WBC (Bld) 64.2 % Normal [facility] Comment on above: Order Comment: Speci men Type: BLOOD SPECIMEN Ordering Facility: [facility] Address: [facility] [address] Performed By: #### 5 7021-8 #### [facility] CLIA [id number] [address] [place] [address] [place] Platelet mean volume (Bld) [Entitic vol] 10.5 fL Normal 9.0-12.7 [facility] Comment on above: Order Comment: Speci men Type: BLOOD SPECIMEN Ordering Facility: [facility] Address: [address] [place], [place] [address] Performed By: #### 5 7021-8 #### [facility] CLIA [id number] [address] [place] [address] [place] Platelets (Bld) [#/Vol] 229 10*3/uL Normal 150-400 [facility] Comment on above: Order Comment: Speci men Type: BLOOD SPECIMEN Ordering Facility: [facility] Address: [address] Performed By: #### 5 7021-8 #### [facility] CLIA [id number] [address] [place] [address] [place] RBC (Bld) [#/Vol] 4.80 10*6/uL Normal 4.20-6.00 [facility] Comment on above: Order Comment: Speci men Type: BLOOD SPECIMEN Ordering Facility: [facility] Address: [address] [place], [place] [address] Performed By: #### 5 7021-8 #### [facility] CLIA [id number] [address] [place] [address] [place] [address] [place] WBC (Bld) [#/Vol] 9.00 10*3/uL Normal 3.70-11.00 [facility] Comment on above: Order Comment: Speci men Type: BLOOD SPECIMEN Ordering Facility: [facility] Address: [address] [place] [address] Performed By: #### 5 7021-8 #### [facility] CLIA [id number] [address] [place] [address] [place] ABD/PEL W IVCONon 022 CT ABD/PEL W IVCON * * *Final Report* * * DATE OF EXAM: Feb 07 2022 9:52PM [facility] 0530 - CT ABD/PEL W IVCON [...] osseous lesions are identified. Lower thorax: Unremarkable. Head Loft Worker (topogram) images: No additional findings. IMPRESSION: No acute findings in the abdomen or pelvis to explain the patient's symptoms Senior Online Marketing Manager: PSCB Transcribe Date/Time: Feb 07 2022 11:25P Dictated by : FRANKO CROWLEY MD This examination was interpreted and the report reviewed and electronically signed by: FRANKO CROWLEY MD on Feb 07 2022 11:34PM EST [id number] CN Normal [facility] ED NOTEon 02-07-2022 ED NOTE HNO ID: [id number] Author: Sherita Foster RN Service: Emergency Medicine Author Type: Registered Nurse Type: ED Notes Filed: 02/07/2022 9:03 PM Note Text: C/o pain to left ribcage, x ray done in triage, IV placed, blood work to lab Normal [facility] ED PROV NOTEon 02-07-2022 ED PROV NOTE HNO ID: [id number] Author: Melody Lopez MD Service: Emergency Medicine [...] to plan. Melody Lopez MD 02/07/22 2357 [facility] ED PROV NOTE HNO ID: [id number] Author: Erasmo Mcrae MD Service: Emergency Medicine Author Type: Resident Type: ED Provider Notes Filed: 02/08/2022 1:44 AM Note Text: Attestation signed by Meldoy Lopez MD at 02/09/2022 7:51 AM Attending [...] of liz (more content not included)... Normal [facility] XR RIB/CHST 3V AP RIB/OBL/CH ST Mike [...] fractures. IMPRESSION: No obvious left rib fractures. Senior Online Marketing Manager: PSCB Transcribe Date/Time: Feb 07 2022 8:14P Dictated by : CHRISTINE SEO MD This examination was interpreted and the report reviewed and electronically signed by: CHRISTINE SEO MD on Feb 07 2022 8:16PM EST [id number] CN Normal [facility] ED Provider Noteon ED Provider Note Cassy [...] otherwise acutely negative except as in the [place]. PAST MEDICAL HISTORY History reviewed. No pertinent [...] and Family: Not on file ? Attends Nondenominational Services: Not on file ? Active Member [...] TempSrc: T (more content not included)... Normal [facility] 10-31-2021 Clayton Coates DO [...] of procedure: Tolerated well, no immediate complications [employer] Work Phone: [employer] Work Phone: OVon 06-07-2021 CNOV Office Visit ([facility]) ERIC VILLA ([id number]) 1980 M Date Time Provider Department 06/07/21 11:10 AM KOKO KING During your visit today, we recorded the following information about you: Temperature Pulse Respiration Blood pressure 97.2 degrees 98/minute 18/minute 140/79 Weight 88.1 kg Koko King APRN.CNP 06/07/2021 12:30 PM Signed This note was created using [employer]. Subjective Eric Villa is a 40 year old male. The history is provided by the patient. No english as a second language teacher was used. Musculoskeletal Problem This is a [...] XR Finger: IMPRESSION: No Acute Fracture. ? Senior Online Marketing Manager: CASIMIRO Transcribe Date/Time: Jun 07 2021 11:45A [...] [M79.644] Order(s):XR DIGIT GENERAL 3V FRONTAL/LAT/OBL RIGHT [[id number]] Order #: [id number] FUTURE APPLY FINGER SPLINT,DYNAMIC [[id number]] Order #: [id number] Problem List As Of Date: 06/07/2021 ( (more content not included)... Normal [facility] XR DIGIT 3V FRONTAL/LAT/OBL RTon 06-07-2021 [...] soft tissue abnormality. IMPRESSION: No Acute Fracture. Senior Online Marketing Manager: PSCB Transcribe Date/Time: Jun 07 2021 11:45A Dictated by : ROSEMARIE MCLAIN MD This examination was interpreted and the report reviewed and electronically signed by: ROSEMARIE MCLAIN MD on Jun 07 2021 11:46AM EST [id number] Normal [facility] ED NOTEon 05-20-2021 ED NOTE HNO ID: [id number] Author: Darshana Galicia RN Service: Emergency Medicine Author Type: Registered Nurse Type: ED Notes Filed: 05/20/2021 9:17 AM Note Text: Tested regularly at work and the test has always been negative but yesterday had a bout of diarrhea and vomited X1. States his employer needs a work noted to return to work and get a covid test here Normal [facility] ED Triage Noteon 05-20-2021 ED Triage Note HNO ID: [id number] Author: Catherine Peterson PA-C Service: Emergency Medicine Author Type: Physician Office Asst Type: ED Triage Notes Filed: 05/20/2021 9:30 [...] outpatient covid-19 testing resources. SIGNATURE: MARIANNE Moe [facility] Vital Signs Date Time Vital Sign Value Performing Clinician Maria T patino 10-31-2021 00:51-0400 Body temperature 98.49 [degF] Clayton Gombash DO Work Phone: [facility] 10-31-2021 00:51-0400 Diastolic blood pressure 80 mm[Hg] Clayton Gombash D O Work Phone: [facility] 10-31-2021 00:51-0400 Heart rate 87 /min Clayton Gombash DO Work Phone: [facility] 10-31-2021 00:51-0400 Respiratory rate 16 /min Clayton Gombash DO Work Phone: [facility] 10-31-2021 00:51-0400 SaO2% (BldA) [Mass fraction] 94 % Clayton Gombash DO Work Phone: [facility] 10-31-2021 00:51-0400 Systolic blood pressure 128 mm[Hg] Clayton Gombash DO Work Phone: [facility] 10-31-2021 00:50-0400 Body height 177.8 cm Clayton Gombash DO Work Phone: [facility] 10-31-2021 00:50-0400 Body mass index (BMI) [Ratio] 26.69 kg/m2 Clayton Gombash DO Work Phone: [facility] 10-31-2021 00:50-0400 Body weight 84.37 kg Clayton Gombash DO Work Phone: [facility] Encounters Encounter Date Encounter Type Care Provider Facility Start: 12-11-2024 End: 12-11-2024 ambulatory [facility] Start: 12-04-2024 End: 12-04-2024 ambulatory [facility] Start: 11-27-2024 End: 11-28-2024 ambulatory [facility] Start: 11-20-2024 End: 11-20-2024 ambulatory [facility] Start: 11-13-2024 End: 11-13-2024 ambulatory [facility] Start: 11-06-2024 End: 11-07-2024 ambulatory [facility] Start: 10-30-2024 End: 10-30-2024 ambulatory [facility] Start: 10-23-2024 End: 10-24-2024 ambulatory [facility] Start: 10-16-2024 End: 10-16-2024 ambulatory [facility] Start: 10-09-2024 End: 10-09-2024 ambulatory [facility] Start: 10-02-2024 End: 10-02-2024 ambulatory [facility] Start: 09-25-2024 End: 09-25-2024 ambulatory [facility] Start: 09-18-2024 End: 09-18-2024 ambulatory [facility] Start: 09-11-2024 End: 09-11-2024 ambulatory [facility] Start: 09-04-2024 End: 09-05-2024 ambulatory [facility] Start: 08-29-2024 End: 08-29-2024 [facility] Start: 08-27-2024 End: 08-27-2024 ambulatory [facility] Start: 08-26-2024 End: 08-26-2024 ambulatory [facility] Start: 08-20-2024 End: 08-20-2024 Subsequent hospital visit by physician Catherine Perez [facility] Start: 08-19-2024 End: 08-19-2024 Subsequent hospital visit by physician Liseth Sharp [facility] Comment on above: Severe [...] Subsequent hospital visit by physician Liseth Sharp [facility] Comment on above: Opioid use disorder Start: 05-03-2023 End: 05-03-2023 Subsequent hospital visit by physician Moni Boyce MD Work Phone: [facility] Comment on above: Arrived Start: 05-02-2023 Documentation procedure Deianira Bethany [facility] Start: 05-01-2023 Documentation procedure Deianira Bet[facility]ny [facility] Start: 04-26-2023 End: 04-26-2023 Subsequent hospital visit by physician Moni Boyce MD Work Phone: [facility] Comment on above: Severe opioid use di sorder (HCC); Mild cannabis use disorder Start: 04-17-2023 Documentation procedure Deianira Bethany [facility] Start: 04-12-2023 End: 04-12-2023 [...] Start: 03-07-2023 Documentation procedure Deianira Bethany ch [facility] Start: 03-01-2023 End: 03-01-2023 [...] by physician Moni Boyce MD Work Phone: [facility] Comment on above: Mild cannabis [...] by physician Moni Boyce MD Work Phone: [facility] Comment on above: Mild cannabis use di sorder (Primary Dx); Severe opioid use disorder (HCC) Start: 01-23-2023 End: 01-23-2023 Subsequent hospital visit by physician Moni Boyce MD Work Phone: [facility] Comment on above: Severe opioid use di sorder (HCC) [F11.20 (ICD-10-CM)]; Mild cannabis use disorder [F12.10 (ICD-10-CM)] Start: 01-19-2023 End: 01-19-2023 Subsequent hospital visit by physician Mert Crawford [facility] Comment on above: Severe opioid [...] End: 12-12-2022 Subsequent hospital visit by physician Moni Boyce MD Work Phone: [facility] Comment on above: Opioid type dependen ce, continuous (HCC) (Primary Dx); Cannabis abuse, continuous Start: 12-05-2022 End: 12-05-2022 Subsequent hospital visit by physician Moni Boyce MD Work Phone: [facility] Comment on above: Severe opioid use di sorder (HCC); Mild cannabis use disorder Start: 02-07-2022 End: 02-08-2022 Emergency department patient visit [facility] Facility:[facility] Start: 10-31-2021 End: 10-31-2021 Emergency department patient visit Clayton Coates DO Work Phone: [facility] Comment on above: Knee laceration, rig ht, initial encounter (Primary Dx) Start: 05-20-2021 End: 05-20-2021 Emergency department patient visit [facility] Facility:[facility] Start: 10-10-2016 End: 10-11-2016 Emergency department patient visit [facility] Facility:[facility] Procedures Date Procedure Procedure Detail Performing Clinician [...] Adult depression scr eening assessment Liseth Sharp [facility] Start: 04-05-2023 IGNATIA DRUG SCREEN Javed Boyce [...] for Adults (1 - 1-dose 75+ series) [facility] Start: 2038 RSV Immunization age d 60 or older (1 - 1-dose 60+ series) RSV Immunization aged 60 or older (1 - 1-dose 60+ series) [facility] Start: 2028 Zoster Vaccines (1 of 2) Zoster Vacc melly (1 of 2) [facility] Start: 06-11-2025 Depression Screening Depression Scre ening [facility] Start: 09-02-2024 End: 09-02-2024 Patient encounter procedure 09/02/2024 5:30 PM EDT Appointment [facility] [address] [place] [address] Liseth Sharp [facility] Start: 08-29-2024 End: 08-29-2024 Patient encounter procedure 08/29/2024 5:30 PM EDT Appointment [facility] [address] [place] [address] Catherine Perez [facility] Start: 08-27-2024 End: 08-27-2024 Patient encounter procedure 08/27/2024 5:30 PM EDT Appointment [facility] [address] [place] [address] Catherine Perez [facility] Start: 08-26-2024 End: 08-26-2024 Patient encounter procedure 08/26/2024 5:30 PM EDT Appointment [facility] [address] [place] [address] Liseth Sharp [facility] Start: 08-22-2024 End: 08-22-2024 Patient encounter procedure 08/22/2024 5:30 PM EDT Appointment [facility] [address] [place] [address] Catherine Perez [facility] Start: 08-20-2024 End: 08-20-2024 Patient encounter procedure 08/20/2024 5:30 PM EDT Appointment [facility] [address] [place] [address] Catherine Perez [facility] Start: 08-19-2024 End: 08-19-2024 Patient encounter procedure 08/19/2024 5:30 PM EDT Appointment [facility] [address] [place] [address] Liseth Sharp [facility] Start: 08-15-2024 End: 08-15-2024 Patient encounter procedure [facility] Start: 08-12-2024 End: 08-12-2024 Patient encounter procedure 08/12/2024 5:30 PM EDT Appointment [facility] [address] [place] [address] Darío Thibodeaux MD [address] [address] Liseth Sharp [facility] Start: 08-08-2024 End: 08-08-2024 Patient encounter procedure [facility] Start: 08-06-2024 End: 08-06-2024 Patient encounter procedure [facility] Start: 08-05-2024 End: 08-05-2024 Patient encounter procedure 08/05/2024 5:30 PM EDT Appointment [facility] [address] [place] [address] Darío Thibodeaux MD [address] [address] [facility] Start: 08-01-2024 End: 08-01-2024 Patient encounter procedure [facility] Start: 07-30-2024 End: 07-30-2024 Patient encounter procedure 07/30/2024 5:30 PM EST Appointment [facility] [address] [place] [address] Darío Thibodeaux MD [address] [address] Liseth Sharp [facility] Start: 07-29-2024 End: 07-29-2024 [...] PM EST Appointment [facility] [address] [place] [address] Darío Thibodeaux MD [address] [address] [facility] Start: 07-02-2024 End: 07-02-2024 Patient encounter procedure [facility] Start: 07-01-2024 End: 07-01-2024 Patient encounter procedure 07/01/2024 9:00 AM EST Appointment [facility] [address] [place] [address] Darío Thibodeaux MD [address] [address] Jt Ramirez [facility] Start: 06-27-2024 End: 06-27-2024 Patient encounter procedure 06/27/2024 9:00 AM EST Appointment [facility] [address] [place] [address] Darío Thibodeaux MD [address] [phone] Jt Ramirez [facility] Start: 06-25-2024 End: 06-25-2024 Patient encounter procedure 06/25/2024 9:00 AM EST Appointment [facility] [address] [place] [address] Darío Thibodeaux MD [address] [address] Jt Ramirez [facility] Start: 06-24-2024 End: 06-24-2024 Patient encounter procedure 06/24/2024 9:00 AM EST Appointment [facility] [address] [place] [address] Darío Thibodeaux MD [address] [address] Jt Ramirez [facility] Start: 06-20-2024 End: 06-20-2024 Patient encounter procedure 06/20/2024 9:00 AM EST Appointment [facility] [address] [place] [address] Darío Thibodeaux MD [address] [phone] Jt Ramirez [facility] Start: 06-18-2024 End: 06-18-2024 Patient encounter procedure 06/18/2024 9:00 AM EST Appointment [facility] [address] [place] [address] Darío Thibodeaux MD [address] [place] [address] Jt Ramirez, [facility] Start: 06-17-2024 End: 06-17-2024 Patient encounter procedure 06/17/2024 9:00 AM EST Appointment [facility] [address] [place] [phone] Darío Thibodeaux MD [address] [address] Jt Ramirez, [facility] Start: 02-08-2024 Depression Screening Depression Scre ening [facility] Start: 01-28-2024 COVID-19 Vaccine ( season) COVID-19 Vaccine () [facility] Start: 01-28-2024 Influenza vaccination Influenza Vacc ine (#1) [facility] Start: 12-06-2023 Depression Screening Depression Scre ening [facility] Start: 05-17-2023 End: 05-17-2023 Patient encounter procedure 05/17/2023 6:00 PM EST Appointment [facility] [address] [place] [phone] Moni Boyce MD [address] [place] [phone] Mert Crawford [facility] Start: 05-10-2023 End: 05-10-2023 Patient encounter procedure 05/10/2023 6:00 PM EST Appointment [facility] [address] [place] [address] Moni Boyce MD [address] [place] [phone] Mert Crawford [facility] Start: 05-03-2023 End: 05-03-2023 Patient encounter procedure 05/03/2023 6:00 PM EST Appointment [facility] [address] [place] [address] Moni Boyce MD [address] [place] [phone] Mert Crawford [facility] Start: 04-26-2023 End: 04-26-2023 Patient encounter procedure 04/26/2023 6:00 PM EST Appointment [facility] [address] [place] [address] Moni Boyce MD [address] [place] [phone] Mert Crawford [facility] Start: 04-19-2023 End: 04-19-2023 Patient encounter procedure 04/19/2023 5:30 PM EST Appointment [facility] [address] [place] [phone] Moni Boyce MD [address] [place] [phone] Rossi Gonzales [facility] Start: 04-05-2023 End: 04-05-2023 [...] PM EDT Appointment [facility] [address] [place] [address] Moni Boyce MD [address] [place] [phone] Mert Crawford [facility] Start: 02-22-2023 End: 02-22-2023 Patient encounter procedure 02/22/2023 6:00 PM EDT Appointment [facility] [address] [place] [phone] Moni Boyce MD [address] [place] [phone] Mert Crawford [facility] Start: 02-16-2023 End: 02-17-2024 ETHYL GLUCURONIDE SCREEN, URINE [facility] Comment on above: Expected: 02/16/2023 (Approximate), Expires: 02/17/2024 Once for 1 Occurrenc es starting 02/16/2023 until 02/16/2023, 1 completed Start: 02-16-2023 End: 02-17-2024 Fentanyl, urine [facility] Comment on above: Expected: 02/16/2023 (Approximate), Expires: 02/17/2024 Once for 1 Occurrenc es starting 02/16/2023 until 02/16/2023, 1 completed Start: 02-16-2023 End: 02-17-2024 IGNATIA DRUG SCREEN [facility] System Work Phone: Comment on above: Expected: 02/16/2023 (Approximate), Expires: 02/17/2024 Once for 1 Occurrenc es starting 02/16/2023 until 02/16/2023, 1 completed Start: 02-15-2023 End: 02-15-2023 Patient encounter procedure 02/15/2023 6:00 PM EDT Appointment [facility] [address] [place] [phone] Moni Boyce MD [address] [place] [phone] Mert Crawford [facility] Start: 02-13-2023 End: 02-13-2023 Patient encounter procedure 02/13/2023 5:30 PM EDT Appointment [facility] [address] [place] [address] Moni Boyce MD [address] [place] [phone] Mert Crawford [facility] Start: 02-09-2023 End: 02-09-2023 Patient encounter procedure 02/09/2023 5:30 PM EDT Appointment [facility] [address] [place] [address] Moni Boyce MD [address] [place] [phone] Mert Crawford [facility] Start: 02-08-2023 End: 02-08-2023 Patient encounter procedure 02/08/2023 6:00 PM EDT Appointment [facility] [address] [place] [phone] Moni Boyce MD [address] [place] [phone] Mert Crawford [facility] Start: 02-07-2023 End: 02-07-2023 Patient encounter procedure 02/07/2023 5:30 PM EDT Appointment [facility] [address] [place] [phone] Moni Boyce MD [address] [place] [phone] Mert Crawford [facility] Start: 02-06-2023 End: 02-06-2023 Patient encounter procedure 02/06/2023 5:30 PM EDT Appointment [facility] [address] [place] [phone] Moni Boyce MD [address] [place] [phone] Mert Crawford [facility] Start: 02-02-2023 End: 02-02-2023 Patient encounter procedure 02/02/2023 5:30 PM EDT Appointment [facility] [address] [place] [address], [place] [address] Moni Boyce MD [address] [place] [phone] Mert Crawford [facility] Start: 02-01-2023 End: 02-01-2023 Patient encounter procedure 02/01/2023 5:30 PM EDT Appointment [facility] [address] [place] [phone] Moni Boyce MD [address] [place] [phone] Mert Crawford [facility] Start: 01-31-2023 End: 01-31-2023 Patient encounter procedure 01/31/2023 5:30 PM EDT Appointment [facility] [address] [place] [address], [place] [phone] Moni Boyce MD [address] [place] [phone] Mert Crawford [facility] Start: 01-27-2023 COVID-19 Vaccine ( season) COVID-19 Vaccine ( season) [facility] Start: 01-27-2023 Influenza vaccination Influenza Vacc ine (#1) [facility] Start: 01-26-2023 End: 01-26-2023 Patient encounter procedure 01/26/2023 5:30 PM EDT Appointment [facility] [address] [place] [phone] Moni Boyce MD [address] [place] [phone] Mert Crawford [facility] Start: 01-19-2023 End: 01-19-2023 Patient encounter procedure 01/19/2023 5:30 PM EDT Appointment [facility] [address] [place] [address] Mert Crawford [facility] Start: 01-17-2023 End: 01-17-2023 Patient encounter procedure [facility] Start: 01-16-2023 End: 01-16-2023 Patient encounter procedure 01/16/2023 5:30 PM EDT Appointment [facility] [address] [place] [address] Mert Crawford [facility] Start: 01-12-2023 End: 01-12-2023 Patient encounter procedure 01/12/2023 5:30 PM EDT Appointment [facility] [address] [place] [address] Mert Crawford [facility] Start: 01-10-2023 End: 01-10-2023 Patient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 mail message with the pending authorization reference number to get approval for prior authorization for services for the pt with a start date of 01/12/2023. [facility] left a phone number for Leyda to [...] Comments: See Above documented in this encounter [employer] 01-17-2023 History of Presen t illness Narrative Called In- Will Be Late Pt called today, 01/17/2023, to report that he will be late for group today due to work. Pt states he will be in group today. [facility] of Presen t illness Narrative [facility] received a call from a family preservation caseworker with children services today, 01/17/2023, asking for this [facility] to return the call regarding the pt. Pt signed a FILEMON for children services. [facility] returned the call and left a voice mail message to return the call along with a call back number. [facility] did not leave the name of the pt on the voice mail message. documented in this encounter [facility] 01-16-2023 Miscellaneous Notes Outpatient Behavioral Health Services Case Management/Care Coordination Note Date of Contact: 01/16/2023 Start Time: 12:21 PM End Time: 1:03 PM Duration: 42 Minutes Type of Contact: Telephone Patient's Identified Case Management/Care Coordination Need(s) addressed (select all that apply): ALEXANDRO Treatment Summary of Contact/Need at This Time: [facility] called the pt's insurance company [employer] to request prior authorization for IOP 2.1 level of care for addiction. Pending Authorization number: [id number]. Director Clinical Operations Name: Leyda Navarrete Director Clinical Operations Extension: [phone]. [facility] called the family preservation caseworker and left a voice mail message with the pending authorization reference number to get approval for prior authorization for services for the pt with a start date of 01/12/2023. [facility] left a phone number for Leyda to [...] Treatment Summary of Contact/Need at This Time: [facility] called the pt's insurance [employer] to request prior authorization for IOP 2.1 level of care for addiction. Pending Authorization number: [id number]. Director Clinical Operations Name: Leyda Navarrete Director Clinical Operations Extension: [phone]. [facility] called the family preservation caseworker and left a voice mail message with the pending authorization reference number to get approval for prior authorization for services for the pt with a start date of 01/12/2023. [facility] left a phone number for Leyda to [...] Comments: See Above documented in this encounter [facility] [place] 01-16-2023 Note Formatting of this n ote might be different from the original. Outpatient Behavioral Health Services Case Management/Care Coordination Note Date of Contact: 01/16/2023 Start Time: 12:21 PM End Time: 1:03 PM Duration: 42 Minutes Type of Contact: Telephone Patient's Identified Case Management/Care Coordination Need(s) addressed (select all that apply): ALEXANDRO Treatment Summary of Contact/Need at This Time: [facility] called the pt's insurance [employer] to request prior authorization for IOP 2.1 level of care for addiction. Pending Authorization number: [id number]. Director Clinical Operations Name: Leyda Navarrete Director Clinical Operations Extension: [phone]. [facility] called the family preservation caseworker and left a voice mail message with the pending authorization reference number to get approval for prior authorization for services for the pt with a start date of 01/12/2023. [facility] left a phone number for Leyda to [...] Management Goal(s) Met Additional Comments: See Above [facility] 01-16-2023 Note Formatting of this n ote might be different from the original. Outpatient Behavioral Health Services Case Management/Care Coordination Note Date of Contact: 01/16/2023 Start Time: 12:21 PM End Time: 1:03 PM Duration: 42 Minutes Type of Contact: Telephone Patient's Identified Case Management/Care Coordination Need(s) addressed (select all that apply): ALEXANDRO Treatment Summary of Contact/Need at This Time: [facility] called the pt's insurance company [employer] to request prior authorization for IOP 2.1 level of care for addiction. Pending Authorization number: [id number]. Director Clinical Operations Name: Leyda Navarrete Director Clinical Operations Extension: [phone]. [facility] called the family preservation caseworker and left a voice mail message with the pending authorization reference number to get approval for prior authorization for services for the pt with a start date of 01/12/2023. [facility] left a phone number for Leyda to [...] Management Goal(s) Met Additional Comments: See Above [facility] 12-26-2022 History of Presen t illness Narrative [facility] called and left the pt a voice mail message today, 12/26/2022, inquiring if he is still interested in attending the evening IOP group sessions since he has missed the last 2. [facility] left a phone number for the pt to return the call. [facility] called the pt today, 12/27/22, letting him know his voice mail message was received. [facility] informed the pt that he is not in the process of being discharged and hope to see him in group this week or next week. documented in this encounter [facility] 12-12-2022 History of Presen t illness Narrative Admission Note Psychiatric IOP Date: 12/12/2022 Start Time: 5:13 PM End Time: 5:30 PM Pt admitted to Substance Abuse [facility] on this date. He reported understanding and [...] for recovery? No documented in this encounter [facility] 12-05-2022 History of Presen t illness Narrative Outpatient Behavioral Health Initial Assessment Start Time: 1401, End Time: [address] Appointed Guardian? no Does patient have a Durable Power of Service Order Dispatcher? no Does the patient have an Advanced Directive? If Yes, copy received? no Screening Tool Score Comment (required for each screening tool) PHQ-9 (PHQ-2: 0) neg ELYSSA-7 2 minimal AUDIT-C 2 Neg DAST-10 (!) 4 Likely indicates ALEXANDRO Life Events Checklist Pos Pos in 8 domains PCL-5 44 Pt reports girlfriend cheating on him as the event. Language Preferred Language: Indian Languages Spoken: malawian Presenting Problem(s) Reason for visit as reported [...] place to sleep or slept in a residential (including now)?: No Patient feels safe at [...] and identify any impact on treatment) none Pentecostalism/Spiritual Orientation (note if patient identifies any belief in higher power, anabaptist belief, or not. 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 Current Employer: Not answered Start Date: Not [...] a week How often do you attend protestant or anabaptist services?: Never Do you belong to any clubs or organizations such as protestant groups, unions, fraternal or athletic groups, or [...] If the patient has ever been to senior care or in correction, list where and how much time the patient served:: 1 n senior care Is there a relationship between the presenting [...] Pt reports family support , 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 Author Type: Collections Manager Type: Progress Notes Filed: 06/07/2021 11:45 AM [...] RT Hieu(R) June 07, 2021 11:45 AM [facility] 06-07-2021 Note HNO ID: [id number] Author: Koko King APRN.FAMILY COUNSELOR Service: ? Author Type: Nurse Practitioner Type: Progress Notes Filed: 06/07/2021 12:30 PM Note Text: This note was created using [employer]. Subjective Eric Villa is a 40 year old male. The history is provided by the patient. No english as a second language teacher was used. Musculoskeletal Problem This is a [...] XR Finger: IMPRESSION: No Acute Fracture. ? Senior Online Marketing Manager: CASIMIRO Transcribe Date/Time: Jun 07 2021 11:45A [...] 3-5 days or get worse Koko King APRN.[facility] Evaluation note Diagnosis Knee laceration, right, initial [...] disorder (HCC)- Primary documented in this encounter [facility]* Diagnosis Mild cannabis use disorder- Primary Severe opioid use disorder (HCC) [facility] Diagnosis Severe opioid use disorder (HCC) Mild cannabis use disorder documented [facility] Diagnosis Opioid use disorder documented in [facility] Diagnosis Severe opioid use disorder (HCC) documented [facility] Diagnosis Opioid use disorder documented in [facility] Diagnosis Severe opioid use disorder (HCC) documented [facility] Diagnosis Opioid use disorder documented in this [facility] Diagnosis Opioid use disorder documented in [facility] Diagnosis Severe opioid use disorder (HCC) documented [facility] Diagnosis Severe opioid use disorder (HCC) documented [facility] Diagnosis Severe opioid use disorder (HCC) [facility] Diagnosis Severe opioid use disorder (HCC) [facility]* Attachments The following attachments cannot be sent through Care Everywhere. * Lacerations: Stitches (Indian) [facility] Work Phone: Summary [...] content) DATE CREATED AUTHOR 11/22/2017 Pio Marx [facility] DATE CREATED AUTHOR AUTHOR'S ORGANIZ ATION 08/24/2021 [facility] DATE CREATED AUTHOR AUTHOR'S ORGANIZ ATION 11/02/2021 [facility] DATE CREATED AUTHOR AUTHOR'S ORGANIZ ATION 02/25/2022 Pio Marx [facility] DATE CREATED AUTHOR AUTHOR'S ORGANIZ ATION 12/15/2024 [facility] Reason for Visit (unrecogniz ed section and content) Reason Comments Knee Injury Reason Comments Drug / Alcohol Assessment Reason Comments Drug / Alcohol Assessment Pt presented f or assessment for IOP. Scheduled Active and Recently Administ ered Medications (unrecognized section and content) Medication Order 10/29/2021 10/30/2021 10/31/2021 lidocaine-EPINEPHrine 1 %-1:[id number] injection 20 mL (COMPLETED) 20 mL, IntraDERmal, ONCE, 1 dose, On 10/31/21 at 005 0110 (Given - Provid er: Clarisse Owens RN) Care Teams (unrecognized sec tion and content) Tobacco Grader Relationship Specialty Start Date End Date Devin Laboy MD PCP - General 03/25/15 Tobacco Grader Relationship Specialty Start Date End Date Devin Laboy MD [address] [place] [phone] PCP - General 03/25/15 Tobacco Grader Relationship Specialty Start Date End Date Deivn Laboy MD [address] [place] [phone] PCP - General 03/25/15 Tobacco Grader Relationship Specialty Start Date End Date Devin Laboy MD [address] [place] [phone] PCP - General 03/25/15 Tobacco Grader Relationship Specialty Start Date End Date Devin Laboy MD [address] [place] [phone] PCP - General 03/25/15 Tobacco Grader Relationship Specialty Start Date End Date Devin Laboy MD [address] [place] [address] PCP - General 03/25/15 Tobacco Grader Relationship Specialty Start Date End Date Devin Laboy MD [address] [facility] [address] PCP - General 03/25/15 Tobacco Grader Relationship Specialty Start Date End Date Devin Laboy MD [address] [facility] [place] [address] PCP - General 03/25/15 Tobacco Grader Relationship Specialty Start Date End Date Devin Laboy MD [address] [facility] [address] PCP - General 03/25/15 Tobacco Grader Relationship Specialty Start Date End Date Devin Laboy MD [address] [facility] [address] PCP - General 03/25/15 Tobacco Grader Relationship Specialty Start Date End Date Devin Laboy MD [address] [facility] [address] PCP - General 03/25/15 Tobacco Grader Relationship Specialty Start Date End Date Devin Laboy MD [address] [facility] [address] PCP - General 03/25/15 Tobacco Grader Relationship Specialty Start Date End Date Devin Laboy MD [address] [facility] [phone] PCP - General 03/25/15 Tobacco Grader Relationship Specialty Start Date End Date Devin Laboy MD [address] [place] [place] [address] PCP - General 03/25/15 Tobacco Grader Relationship Specialty Start Date End Date Devin Laboy MD [address] [place] [address] PCP - General 03/25/15 Tobacco Grader Relationship Specialty Start Date End Date Devin Laboy MD [address] [place] [address] PCP - General 03/25/15 Tobacco Grader Relationship Specialty Start Date End Date Devin Laboy MD [address] [place] [address] PCP - General 03/25/15 Tobacco Grader Relationship Specialty Start Date End Date Devin Laboy MD PCP - General 03/25/15 Tobacco Grader Relationship Specialty Start Date End Date Devin Laboy MD PCP - General 03/25/15 Tobacco Grader Relationship Specialty Start Date End Date Devin Laboy MD PCP - General 03/25/15 Tobacco Grader Relationship Specialty Start Date End Date Devin Laboy MD PCP - General 03/25/15 Tobacco Grader Relationship Specialty Start Date End Date Devin Laboy MD PCP - General 03/25/15 Tobacco Grader Relationship Specialty Start Date End Date Devin Laboy MD PCP - General 03/25/15 Tobacco Grader Relationship Specialty Start Date End Date Devin Laboy MD PCP - General 03/25/15 Tobacco Grader Relationship Specialty Start Date End Date Devin Laboy MD PCP - General 03/25/15 Tobacco Grader Relationship Specialty Start Date End Date Devin Laboy MD PCP - General 03/25/15 Tobacco Grader Relationship Specialty Start Date End Date Devin Laboy MD PCP - General 03/25/15 Tobacco Grader Relationship Specialty Start Date End Date Devin Laboy MD PCP - General 03/25/15 Tobacco Grader Relationship Specialty Start Date End Date Devin Laboy MD PCP - General 03/25/15 Tobacco Grader Relationship Specialty Start Date End Date Devin Laboy MD PCP - General 03/25/15 Tobacco Grader Relationship Specialty Start Date End Date Devin Laboy MD [facility] General 03/25/15 Tobacco Grader Relationship Specialty Start Date End Date Devin Laboy MD [facility] General 03/25/15 Tobacco Grader Relationship Specialty Start Date End Date Devin Laboy MD [facility] 03/25/15 Tobacco Grader Relationship Specialty Start Date End Date Devin Laboy MD [facility] 03/25/15 Tobacco Grader Relationship Specialty Start Date End Date Devin Laboy MD [facility] 03/25/15 FOR RECORDS PERTAINING TO PATIENTS [...] BE BASED ON THE PRIMARY CLINICAL RECORDS. [facility]. provides no warranty or guarantee of the accuracy or completeness of information in this document.
[2025-02-15] MEDS: Potassium Chloride Oral Tablet 20 MEQ 40 MEQ PO (20:44)
[2025-02-16] VITALS (9 sets, daily range): BP systolic 146–195; BP diastolic 65–99; PULSE 75–115; RESP 16–26; TEMP 37.4–38.2; O2SAT 93–96
[2025-02-16] MEDS: 0.9% Saline Lock 10 ML Syringe IV (00:30)
[2025-02-16 06:18] LABS: Anion Gap 17 (5-15); BUN 31 mg/dL (4-19); BUN/Creat Ratio 26.7 RATIO (10-20); Calcium,Total 9.5 mg/dL (7.6-11.0); Carbon Dioxide 31.3 mmol/L (21.0-32.0); Chloride 96 mmol/L (98-108); Estimated Creatinine Clearance 82.87 ml/min (50-250); Glucose 207 mg/dL (70-99); Potassium 3.0 mmol/L (3.3-5.1)
[2025-02-16] MEDS: hydrOXYzine PAM 25 MG Capsule 50 MG PO (08:04)
--- NOTE | 2025-02-16 08:30 | NURSING ---
Pt vomitted shortly after this RN gave prn meds. This Rn did not see any prn meds with vomit. 100cc clr watery green emesis noted.
--- NOTE | 2025-02-16 10:09 | PN.HOSP_ITS ---
Subjective Subjective Nauseated this morning with a Cina score of 11 Objective Data Objective Data Vital Signs: Vital Signs Temp Pulse Resp BP Pulse Ox O2 Del Method 100.7 F H 110 H 22 H 146/83 H 93 Room Air 02/16/25 07:50 02/16/25 07:50 02/16/25 07:50 02/16/25 07:50 02/16/25 08:00 02/16/25 08:00 Oxygen Delivery Method Room Air Weight: 167 lb 4.8 oz Body Mass Index (BMI) 24.0 Intake & Output: Intake and Output for Last 24 Hours 02/15/25 02/16/25 02/17/25 03:59 03:59 03:59 Intake Total 150 / 150 Balance 150 / 150 Lab / Micro Data 02/15/25 16:22 02/16/25 05:16 Labs: Laboratory Results - last 24 hr 02/15/25 16:22: WBC 18.9 H, RBC 5.19, Hgb 16.7 H, Hct 48.0, MCV 92.5, MCH 32.2 H , MCHC 34.8, RDW Std Deviation 44.0 H, RDW Coeff of Anna 13.1, Plt Count 348, MPV 11.1, Immature Gran % (Auto) 0.700, Neut % (Auto) 91.2 H, Lymph % (Auto) 3.9 L, [place] % (Auto) 4.0, Eos % (Auto) 0.0, Baso % (Auto) 0.2, Absolute Neuts (auto) 17.2 H, Absolute Lymphs (auto) 0.74 L, Nucleated RBC % 0, Sodium 143, Potassium 3.2 L, Chloride 97 L, Carbon Dioxide 29.6, Anion Gap 17 H, BUN 18, Creatinine 0.94, Estim Creat Clear Calc 101.39, Est GFR (MDRD) Non-Af 102, BUN/Creatinine Ratio 18.7, Glucose 188 H, Calcium 9.8, Total Bilirubin 0.62, AST 21, ALT 20, Alkaline Phosphatase 78, Total Protein 7.8, Albumin 4.6, Globulin 3.2, Albumin/Globulin Ratio 1.4, Ethyl Alcohol < 10.1 02/16/25 05:16: Sodium 144, Potassium 3.0 L, Chloride 96 L, Carbon Dioxide 31.3, Anion Gap 17 H, BUN 31 H, Creatinine 1.15, Estim Creat Clear Calc 82.87, Est GFR (MDRD) Non-Af 79, BUN/Creatinine Ratio 26.7 H, Glucose 207 H, Calcium 9.5 Physical Exam Narrative General: Alert, Oriented x3, Cooperative, No apparent distress, restless HEENT: Atraumatic, PERRLA, EOMI, Normocephalic Oral: Moist Mucosa Neck: Supple, No JVD Lungs: Diminished, Normal air movement, No rhonchi, No wheeze, No rales Cardiovascular: Regular rate, Regular Rhythm, Normal S1, Normal S2, No murmurs Abdomen: Soft, Non Tender, Non-Distended, No Hepato-splenomegaly Extremities: No edema, Capillary Refill Less than 3 Seconds Skin: No rashes, No breakdown Musculoskeletal: No Tenderness to Palpation of Joints or Extremities Neurological: No focal neurological deficits, Motor Exam 5/5 strength throughout, Sensory exam intact to light touch and pain Psych/Mental Status: Flat, anxious Assessment & Plan Assessment/Plan (1) Opiate withdrawal: PLAN: Plan 1. Requesting detox from opiates ? Cina score of 11, continue with the opiate withdrawal protocol ? Will place him on IV fluids given signs of dehydration with a white count of 18 which is likely reactive as well as a hemoglobin of 16.7 on admission ? Will have him follow-up with 180 to determine outpatient plan 2. Hypokalemia ? Will monitor and replace DVT: Ambulation Charges/Coding Visit Charges Inpatient E&M: 78041 Subs Hosp L2
[2025-02-16 10:36] LABS: Magnesium 2.5 mg/dL (1.5-2.2)
[2025-02-16] MEDS: 0.9% Normal Saline (1000mL) 1,000 ML 125 ML IV ×2 (12:08→21:31)
[2025-02-16] MEDS: Potassium Chloride 10mEq/100mL 10 MEQ/100 ML IV.SOLN. 100 MEQ IV BOLUS ×4 (12:52→16:50)
--- NOTE | 2025-02-16 13:24 | ADDICTION ---
Clinician will meet with pt in the morning. He is unwell and not interested in talking. It is reported he will be returning to assisted post d/c.
--- NOTE | 2025-02-16 15:57 | RAD_ITS ---
PROCEDURE: CHEST 1 VIEW (PORTABLE) 02/16/2025 REASON FOR EXAM: COUGH WITH FEVER AND WBC TECHNIQUE: Frontal view of the chest. COMPARISON: None FINDINGS: Lungs: The lungs are symmetrically expanded. Lung volumes are at the lower end of normal. There is no consolidation. There is no peribronchial thickening. There is no pulmonary vascular redistribution. Pleura: No significant pleural effusion seen. There is no evidence of pneumothorax. Mediastinum: There is no mediastinal widening or mediastinal shift. Heart: The cardiac silhouette is not enlarged. Maria Elena: The pulmonary maria elena are not enlarged or retracted. Osseous: No acute fracture is seen. RAD/Chest 1 View (Portable) IMPRESSION: No radiographic evidence of an acute pulmonary infiltrate. - Other findings discussed above. Reading Location: [id number]
[2025-02-17] VITALS (8 sets, daily range): BP systolic 110–175; BP diastolic 54–97; PULSE 69–96; RESP 16; TEMP 36.7–37.4; O2SAT 95–99
[2025-02-17 01:16] LABS: Barbiturate Urine NEGATIVE (< 200 ng/mL); Benzodiazepine Urine NEGATIVE (< 200 ng/mL); PCP Urine NEGATIVE (< 25 ng/mL); THC Urine PRESUMPTIVE POSITIVE (< 50 ng/mL)
[2025-02-17 06:16] LABS: Hematocrit 47.1 % (40-54); Hemoglobin 16.1 g/dL (13.0-16.5); Immature Granulocytes Count 0.100 X10^3/uL (0.0-0.0); Mean Corp Hgb Conc 34.2 g/dL (32-36); Mean Corpuscular Volume 94.4 fL (80-94); Mean Platelet Vol. 10.8 fl (6.2-12.0); NRBC Flagged by Analyzer 0 % (0-5); POSITIVE DIFFERENTIAL YES; Platelet Count 295 K/mm3 (150-450); RBC Distribution Width CV 13.4 % (11.6-14.6); RBC Distribution Width SD 46.8 fl (35.1-43.9); Red Blood Count 4.99 M/mm3 (4.6-6.2); White Blood Count 18.7 K/mm3 (4.4-11.0)
[2025-02-17 06:20] LABS: Differential Indicated SCAN CRITERIA MET
[2025-02-17 06:36] LABS: Anion Gap 13 (5-15); BUN 24 mg/dL (4-19); BUN/Creat Ratio 31.7 RATIO (10-20); Calcium,Total 9.2 mg/dL (7.6-11.0); Carbon Dioxide 26.9 mmol/L (21.0-32.0); Chloride 101 mmol/L (98-108); Estimated Creatinine Clearance 125.40 ml/min (50-250); Glucose 139 mg/dL (70-99); Potassium 3.6 mmol/L (3.3-5.1)
[2025-02-17 06:55] LABS: Differential Comment SCANNED; Red Cell Morphology NORM C+C NORMAL (NORM C&C)
--- NOTE | 2025-02-17 10:10 | PCM.PN.HOSP ---
Subjective Subjective He is complaining of a sore throat might be strep but it also could be related to his vomiting. His leukocytosis remains elevated despite IV fluids therefore we will also check a urine. Chest x-ray was normal and respiratory panel was unremarkable Objective Data Objective Data Vital Signs: Vital Signs Temp Pulse Resp BP Pulse Ox O2 Del Method 98.7 F 78 16 151/83 H 95 Room Air 02/17/25 08:36 02/17/25 08:36 02/17/25 08:36 02/17/25 08:36 02/17/25 08:36 02/17/25 08:36 Oxygen Delivery Method Room Air Weight: 167 lb 5.294 oz Body Mass Index (BMI) 24.0 Intake & Output: Intake and Output for Last 24 Hours 02/16/25 02/17/25 02/18/25 03:59 03:59 03:59 Intake Total 150 / 150 2112.92 / 211.92 150 / 150 Output Total 100 / 100 Balance 150 / 150 / 150 / 150 Lab / Micro Data 02/17/25 05:59 02/17/25 05:59 Labs: Laboratory Results - last 24 hr 02/15/25 23:55: Urine Opiates Screen NEGATIVE, U Buprenorphine Qual PRESUMPTIVE POSITIVE, Ur Oxycodone Screen NEGATIVE, Urine Methadone Screen NEGATIVE, Urine Fentanyl Screen PRESUMPTIVE POSITIVE, Ur Barbiturates Screen NEGATIVE, Ur Phencyclidine Scrn NEGATIVE, Ur Amphetamines Screen NEGATIVE, U Benzodiazepines Scrn NEGATIVE, Urine Cocaine Screen NEGATIVE, U Cannabinoids Screen PRESUMPTIVE POSITIVE 02/16/25 05:16: Phosphorus 3.4, Magnesium 2.5 H 02/17/25 05:59: WBC 18.7 H, RBC 4.99, Hgb 16.1, Hct 47.1, MCV 94.4 H, MCH 32.3 H, MCHC 34.2, RDW Std Deviation 46.8 H, RDW Coeff of Anna 13.4, Plt Count 295, MPV 10.8, Immature Gran % (Auto) 0.500, Neut % (Auto) 80.2 H, Lymph % (Auto) 10.1 L, [place] % (Auto) 8.9, Eos % (Auto) 0.1, Baso % (Auto) 0.2, Absolute Neuts (auto) 15.0 H, Absolute Lymphs (auto) 1.88, Nucleated RBC % 0, Differential Comment SCANNED, Platelet Estimate ADEQUATE, RBC Morphology NORM C+C, Sodium 140, Potassium 3.6, Chloride 101, Carbon Dioxide 26.9, Anion Gap 13, BUN 24 H, Creatinine 0.76, Estim Creat Clear Calc 125.40, Est GFR (MDRD) Non-Af 112, BUN/Creatinine Ratio 31.7 H, Glucose 139 H, Calcium 9.2 Micro: Microbiology 02/16/25 16:13 Mucosa - Nose Respiratory Panel (PCR) - Final Radiography Diagnostic Testing: Radiology Impression Chest X-Ray 02/16/25 15:57 IMPRESSION: No radiographic evidence of an acute pulmonary infiltrate. - Other findings discussed above. Reading Location: [facility] Physical Exam Narrative General: Alert, Oriented x3, Cooperative, No apparent distress, restless HEENT: Atraumatic, PERRLA, EOMI, Normocephalic Oral: Moist Mucosa Neck: Supple, No JVD Lungs: Diminished, Normal air movement, No rhonchi, No wheeze, No rales Cardiovascular: Regular rate, Regular Rhythm, Normal S1, Normal S2, No murmurs Abdomen: Soft, Non Tender, Non-Distended, No Hepato-splenomegaly Extremities: No edema, Capillary Refill Less than 3 Seconds Skin: No rashes, No breakdown Musculoskeletal: No Tenderness to Palpation of Joints or Extremities Neurological: No focal neurological deficits, Motor Exam 5/5 strength throughout, Sensory exam intact to light touch and pain Psych/Mental Status: Flat, anxious Assessment & Plan Assessment/Plan (1) Opiate withdrawal: PLAN: Plan 1. Requesting detox from opiates ? continue with the opiate withdrawal protocol ? Will place him on IV fluids given signs of dehydration ? Will have him follow-up with 180 to determine outpatient plan 2. Hypokalemia ? Will monitor and replace 3. Leukocytosis ? Unclear if he has an infection or not as he is afebrile however I do not have a good explanation for his leukocytosis being 18. His respiratory panel was negative ? Chest x-ray was unremarkable ? Will obtain a urine sample as well as a strep throat swab given his sore throat DVT: Ambulation Charges/Coding Visit Charges Inpatient E&M: 71017 Subs Hosp L2
[2025-02-17] MEDS: 0.9% Normal Saline (1000mL) 1,000 ML 125 ML IV ×2 (11:28→19:56)
[2025-02-17 19:18] LABS: Mucous, Urine 0 SEEN /hpf (<or=2+)
[2025-02-17 19:20] LABS: Color, Urine Yellow (Yellow); Glucose, Dipstick Normal (Normal); Ketone-Dipstick Negative (Negative); Leukocyte Esterase-Dipstick Negative /ul (Negative); Nitrite-Dipstick Negative (Negative); Occult Blood-Urine 25 /ul (Negative); Protein-Dipstick 30 mg/dl (Negative); Specific Gravity, Urine 1.015 (1.002-1.030); Urine Bilirubin Dipstick Negative (Negative)
[2025-02-17 19:24] LABS: Procalcitonin 0.05 ng/mL (<=0.10)
[2025-02-17 20:17] LABS: Triple Phosphate Crystals Ur 1+ /hpf (<or=1+)
[2025-02-17 20:18] LABS: Red Blood Cells-Urine 0-5 SEEN /hpf (0-5); Squamous Epithelial Cells - UA 0-5 SEEN /hpf (0-5)
[2025-02-17] MEDS: 0.9% Saline Lock 10 ML Syringe IV (20:56)
[2025-02-17] MEDS: hydrOXYzine PAM 25 MG Capsule 50 MG PO (20:56)
--- NOTE | 2025-02-18 02:29 | NURSING ---
pt states he was having hard time swallowing when this RN was giving his prn meds. then he said he was nauseous. prn meds given for nausea. offered to crush his meds with or pudding pt states no. we tried pills whole w/ pudding. pt spit out pills whole or just chews them. noted pt has snacks on the his table and drinking water fine.
[2025-02-18 03:50] VITALS: BP 165/89; PULSE 78; RESP 18; TEMP 37.1; O2SAT 95
[2025-02-18] MEDS: 0.9% Normal Saline (1000mL) 1,000 ML 125 ML IV (04:41)
[2025-02-18 06:17] LABS: Hematocrit 44.4 % (40-54); Hemoglobin 15.3 g/dL (13.0-16.5); Immature Granulocytes Count 0.060 X10^3/uL (0.0-0.0); Mean Corp Hgb Conc 34.5 g/dL (32-36); Mean Corpuscular Volume 94.3 fL (80-94); Mean Platelet Vol. 10.7 fl (6.2-12.0); NRBC Flagged by Analyzer 0 % (0-5); Platelet Count 253 K/mm3 (150-450); RBC Distribution Width CV 13.2 % (11.6-14.6); RBC Distribution Width SD 45.7 fl (35.1-43.9); Red Blood Count 4.71 M/mm3 (4.6-6.2); White Blood Count 13.4 K/mm3 (4.4-11.0)
[2025-02-18 06:44] LABS: Anion Gap 11 (5-15); BUN 14 mg/dL (4-19); BUN/Creat Ratio 22.9 RATIO (10-20); Calcium,Total 8.5 mg/dL (7.6-11.0); Carbon Dioxide 21.6 mmol/L (21.0-32.0); Chloride 103 mmol/L (98-108); Estimated Creatinine Clearance 156.24 ml/min (50-250); Glucose 114 mg/dL (70-99); Potassium 3.6 mmol/L (3.3-5.1)
[2025-02-18 08:04] VITALS: BP 172/92; PULSE 72; RESP 18; TEMP 36.6; O2SAT 98
--- NOTE | 2025-02-18 11:56 | DCINST_ITS ---
Discharge Instructions DC O2, CPAP, BIPAP needs Home O2 Discharge instructions: No Dressing / Incision Discharge Activity: Return to Normal Activity Dressing / Incision Call your doctor if you observe: Fever of 101 or Higher, Shortness of breath, Dizziness, Fainting spells, Swelling in the ankles, Chest pain and Increased palpitations (irregular heartbeat) Follow Up Care Test Results: Test results from this visit will be discussed in further detail at your follow- up appointment, if applicable. Discharge Plan Admission Admit Date/Time: 02/15/25 17:35 Attending Provider: Isac Swanson Primary Care Provider: Care Physician,No Primary Consulting Providers: Marlon Westbrook Discharge Orders/Prescriptions Prescriptions: No Action NK Referrals / Follow Up: Care Physician,No Primary [Primary Care Provider, Medical] Disposition Disposition (needs filled in before D/C Order can be placed): Home, Self Care
--- NOTE | 2025-02-18 17:07 | PCM.DC.SUM ---
Providers Date of Admission: 02/15/25 Primary Care Physician: No Primary Care Phys Reason For Visit: ACUTE OPIATE WITHDRAWAL Diagnosis Discharge Diagnosis (1) Opiate withdrawal: Status: Acute Code(s): F11.93 - Opioid use, unspecified with withdrawal Medications at Discharge Home Medications NK 02/15/25 Hospital Course Operations None Procedures None Summary of Care Provided Minutes Spent on Discharge: 31 Hospital Course: Per HPI: ERIC MATIAS, is a 44 M who presents to the emergency room at [facility] from custodial due to symptoms of opiate withdrawal. The last time patient used was yesterday, he states he snorts fentanyl. Patient denies any other drug usage. He has complaints of nausea and nervousness and generalized muscle pains. Patient has consented to going to the [facility] program here at the hospital. Labs obtained in the emergency room were remarkable for a potassium of 3.2 and a white blood cell count of 18.9. Patient's hemoglobin was 16.7. Patient will be admitted to [place] [address] for acute opiate withdrawal and opiate substance abuse disorder, he will be seen by addiction medical social consultant [facility] Course: 1. Requesting detox from opiates ? continue with the opiate withdrawal protocol ? Will place him on IV fluids given signs of dehydration ? Will have him follow-up with 180 to determine outpatient plan ? Symptoms have completely resolved and he is feeling much better today. He will follow-up with 180 after he goes home from being in custodial, he says it is a 6-day stay. I discussed with him the plan for discharge today and he expressed understanding of the risks and benefits of going home and would like to go home today. 2. Hypokalemia ? Will monitor and replace 3. Leukocytosis ?Procalcitonin was normal and strep antigen was negative, chest x-ray was also unremarkable and urine sample was unremarkable ? His leukocytosis improved significantly with no direct intervention, he went from 18.7 down to 13.4 on the day of discharge ? Respiratory panel was also unremarkable Physical Exam Narrative General: Alert, Oriented x3, Cooperative, No apparent distress, restless HEENT: Atraumatic, PERRLA, EOMI, Normocephalic Oral: Moist Mucosa Neck: Supple, No JVD Lungs: Diminished, Normal air movement, No rhonchi, No wheeze, No rales Cardiovascular: Regular rate, Regular Rhythm, Normal S1, Normal S2, No murmurs Abdomen: Soft, Non Tender, Non-Distended, No Hepato-splenomegaly Extremities: No edema, Capillary Refill Less than 3 Seconds Skin: No rashes, No breakdown Musculoskeletal: No Tenderness to Palpation of Joints or Extremities Neurological: No focal neurological deficits, Motor Exam 5/5 strength throughout, Sensory exam intact to light touch and pain Psych/Mental Status: Flat, anxious Weight / BMI Weight Weight: 167 lb 5.294 oz Body Mass Index (BMI) 24.0 ABG / Lab / Microbiology Data 02/18/25 05:50 02/18/25 05:50 Laboratory: Laboratory Results - last 24 hr 02/17/25 05:59: Procalcitonin 0.05 02/17/25 16:50: Urine Color Yellow, Urine Clarity Cloudy, Urine pH 8.0, Ur Specific [place] 1.015, Urine Protein 30 H, Urine Glucose (UA) Normal, Urine Ketones Negative, Urine Occult Blood 25 H, Urine Nitrite Negative, Urine Bilirubin Negative, Urine Urobilinogen Normal, Ur Leukocyte Esterase Negative, Urine RBC 0-5 SEEN, Urine WBC 0-5 SEEN, Ur Squamous Epith Cells 0-5 SEEN, Triple Phos Crystals 1+, Amorphous Sediment 3+, Urine Bacteria 0 SEEN, Urine Mucus 0 SEEN 02/18/25 05:50: WBC 13.4 H, RBC 4.71, Hgb 15.3, Hct 44.4, MCV 94.3 H, MCH 32.5 H, MCHC 34.5, RDW Std Deviation 45.7 H, RDW Coeff of Anna 13.2, Plt Count 253, MPV 10.7, Immature Gran % (Auto) 0.400, Neut % (Auto) 69.6, Lymph % (Auto) 19.8, [place] % (Auto) 8.8, Eos % (Auto) 1.0, Baso % (Auto) 0.4, Absolute Neuts (auto) 9.4 H, Absolute Lymphs (auto) 2.66, Nucleated RBC % 0, Sodium 136, Potassium 3.6, Chloride 103, Carbon Dioxide 21.6, Anion Gap 11, BUN 14, Creatinine 0.61 L, Estim Creat Clear Calc 156.24, Est GFR (MDRD) Non-Af 120, BUN/Creatinine Ratio 22.9 H, Glucose 114 H, Calcium 8.5 Microbiology: Microbiology 02/17/25 09:45 Swab (Method) Streptococcus pyogenes (PCR) - Final 02/16/25 16:13 Mucosa - Nose Respiratory Panel (PCR) - Final D/C Instructions Call your doctor if you observe: Fever of 101 or Higher, Shortness of breath, Dizziness, Fainting spells, Swelling in the ankles, Chest pain and Increased palpitations (irregular heartbeat) DC O2, CPAP, BIPAP Needs Home O2 Discharge instructions: No Meaningful Use Info Meaningful Use Meaningful Use Diagnoses (Choose all that apply): None applicable Discharge Plan Admission Admit Date/Time: 02/15/25 17:35 Attending Provider: Isac Swanson Primary Care Provider: Care Physician,No Primary Consulting Providers: Marlon Westbrook Discharge Orders/Prescriptions Prescriptions: No Action NK Referrals / Follow Up: Care Physician,No Primary [Primary Care Provider, Medical] Disposition Disposition (needs filled in before D/C Order can be placed): Home, Self Care Charges/Coding Visit Charges Inpatient E&M: 35455 Disch Hosp >30min
== END 2025-02-18 13:52 | disposition home or self-care (01) | DRG 773 ==
LOC: ED 18:00 → MS3 19:32
PROVIDERS: Admitting Provider Internal Medicine; Emergency Provider Emergency Medicine; Visit Provider Family Medicine
DX: F11.13 Opioid abuse with withdrawal (principal); E87.6 Hypokalemia; F17.210 Nicotine dependence, cigarettes, uncomplicated
CPT/HCPCS: 36415; 71045; 80048; 80053; 80307; 81001; 82077; 83735; 84100; 84145; 85025; 87633; 87651; 97802; 99285; A4216; J2405